=== PATIENT | female | born 1995 | race Caucasian/White ===

== ENCOUNTER → 2017-01-23 | Outpatient (CLI) | payer OTHER ==
[2017-01-23 14:34] LABS: URINE APPEARANCE CLEAR (CLEAR); URINE BILIRUBIN NEG (NEG); URINE COLOR YELLOW; URINE NITRITE NEG (NEG); URINE SPECIFIC GRAVITY 1.019 (1.000-1.030); UROBILINOGEN NEG (NEG)
[2017-01-23 14:35] LABS: MANUAL MICROSCOPIC REQUIRED? NO; REVIEW REQ? NO
== END | disposition home or self-care (01) ==
LOC: C.LABSPEC 13:38
PROVIDERS: ATTEND Obstetrics & Gynecology
DX: Z34.01 Encounter for supervision of normal first pregnancy, first trimester (principal)

== ENCOUNTER → 2017-01-30 | Outpatient (CLI) | payer OTHER | END | disposition home or self-care (01) | LOC: C.LABSPEC 13:34 | PROVIDERS: ATTEND Obstetrics & Gynecology | DX: Z34.02 Encounter for supervision of normal first pregnancy, second trimester (principal) ==

== ENCOUNTER → 2017-01-30 | Outpatient (CLI) | payer OTHER ==
[2017-01-30 14:43] LABS: GTGD 50 Grams
== END | disposition home or self-care (01) ==
LOC: C.LAB1850 12:08
PROVIDERS: ATTEND Obstetrics & Gynecology
DX: Z34.02 Encounter for supervision of normal first pregnancy, second trimester (principal)

== ENCOUNTER → 2017-02-27 | Outpatient (CLI) | payer OTHER | END | disposition home or self-care (01) | LOC: C.LAB1850 08:58 | PROVIDERS: ATTEND Obstetrics & Gynecology | DX: O28.1 Abnormal biochemical finding on antenatal screening of mother (principal); Z3A.00 Weeks of gestation of pregnancy not specified ==

== ENCOUNTER → 2017-03-27 | Outpatient (CLI) | payer OTHER ==
[~2017-03-27] MED LIST: PRENTAB26 PO
[2017-03-27 12:19] LABS: HEMATOCRIT 33.2 % (37-47); HEMOGLOBIN 11.7 g/dL (12.0-16.0)
== END | disposition home or self-care (01) ==
LOC: C.LAB1850 11:11
PROVIDERS: ATTEND Obstetrics & Gynecology
DX: Z34.03 Encounter for supervision of normal first pregnancy, third trimester (principal)

== ENCOUNTER → 2017-04-24 | Outpatient (CLI) | payer OTHER | END | disposition home or self-care (01) | LOC: C.LAB1850 14:54 | PROVIDERS: ATTEND Obstetrics & Gynecology | DX: Z34.03 Encounter for supervision of normal first pregnancy, third trimester (principal) ==

== ENCOUNTER → 2017-05-07 | Outpatient (CLI) | payer OTHER | END | disposition home or self-care (01) | LOC: C.PATH 08:24 | PROVIDERS: ATTEND Nurse Practitioner Family | DX: I88.9 Nonspecific lymphadenitis, unspecified (principal) ==

== ENCOUNTER → 2017-05-22 | Day surgery (SDC) | payer OTHER ==
[2017-05-20 15:37] VITALS: BMI 27.0
[~2017-05-22] VITALS: Ht 162.6 cm; Wt 72.7 kg
[~2017-05-22] MED LIST changes: +FENTANYL CITRATE INJ 50 MCG/1 ML 2 ML VIAL ONE; +LACTATED RINGER'S 1000ML 1,000 ML IV SCH; +LIDOCAINE HCL 2% 2 ML VIAL (20MG/ML) ONE; +PROPOFOL IV EMULSION 10 MG/ML 20 ML VIAL IV ONE
[2017-05-22 05:46] VITALS: BP 123/79; PULSE 87; TEMP 36.7; O2SAT 99; Ht 162.6 cm; Wt 72.7 kg
--- NOTE | 2017-05-22 06:33 | History & Physical Bridge Note ---
H&P Re-Evaluation Bridge Note: I have examined the patient, reviewed the History & Physical and in the interval since the performance of the History & Physical I have noted the following changes of clinical significance: No changes noted
--- NOTE | 2017-05-22 08:05 | Anesthesiology Progress Note ---
Anesthesia Progress Note Date of Service May 22, 2017. Progress Notes The patient is 8 months and scheduled for a neck cervical lymph node excision by Dr. Pisano. The patient has had cervical lymph node swelling for over one year. After extensive discussion with Dr. Pisano and Dr. Cole, a decision was made to delay the surgery until after the patient has delivered the baby. The concerns were that the tracing would be concerning during the procedure necessitating an emergency C section as well as the possibility of defects or loss of . Since the patient has had swollen lymph nodes for over a year, it would be prudent to wait until the baby is delivered and then shortly after do the cervical lymph node excision. The patient understands and is in agreement with this plan. Michelle Mehta is performing monitoring and reporting to Dr. Cole.
== END | disposition home or self-care (01) ==
LOC: C.ACU 05:17
PROVIDERS: ATTEND Dentist Oral and Maxillofacial Pathology
DX: I88.9 Nonspecific lymphadenitis, unspecified (principal); Z53.8 Procedure and treatment not carried out for other reasons; O24.419 Gestational diabetes mellitus in pregnancy, unspecified control; Z3A.35 35 weeks gestation of pregnancy; Z88.0 Allergy status to penicillin; Z87.891 Personal history of nicotine dependence

== ENCOUNTER → 2017-05-29 | Outpatient (CLI) | payer OTHER ==
[~2017-05-29] MED LIST changes: -FENTANYL CITRATE INJ 50 MCG/1 ML 2 ML VIAL ONE; -LACTATED RINGER'S 1000ML 1,000 ML IV SCH; -LIDOCAINE HCL 2% 2 ML VIAL (20MG/ML) ONE; -PROPOFOL IV EMULSION 10 MG/ML 20 ML VIAL IV ONE
== END | disposition home or self-care (01) ==
LOC: C.LABSPEC 13:35
PROVIDERS: ATTEND Obstetrics & Gynecology
DX: Z34.03 Encounter for supervision of normal first pregnancy, third trimester (principal)

== ENCOUNTER 2017-06-24 06:45 | Inpatient (IN) | payer OTHER ==
[~2017-06-24] VITALS: Ht 162.6 cm; Wt 74.5 kg
[2017-06-24] MEDS ORDERED: LACTATED RINGER'S 1000ML 1,000 ML IV PRN (08:09)
[2017-06-24] MEDS ORDERED: LACTATED RINGER'S 1000ML 500 ML IV PRN ×2 (08:09→15:07)
[2017-06-24] MEDS ORDERED: OXYTOCIN 30 UNITS/500ML NSS IV PRN ×2 (08:15→21:00)
[2017-06-24 08:41] LABS: HEMATOCRIT 34.2 % (37-47); HEMOGLOBIN 11.9 g/dL (12.0-16.0); MEAN CELL VOLUME 89.3 fL (80-100); MEAN CORPUSCULAR HEMOGLOBIN 31.1 pg (25-34); MEAN CORPUSCULAR HGB CONC 34.8 g/dl (32-36); MEAN PLATELET VOLUME 9.3 fL (7.4-10.4); PLATELET COUNT 161 K/uL (130-400); RED CELL DISTRIBUTION WIDTH CV 13.4 % (11.5-14.5); RED CELL DISTRIBUTION WIDTH SD 43.7 fL (36.4-46.3)
[2017-06-24] MEDS: LACTATED RINGER'S 1000ML 1,000 ML IV SCH ×2 (08:53→14:44)
[2017-06-24 09:09] VITALS: Ht 162.6 cm; Wt 74.5 kg
[2017-06-24] MEDS ORDERED: FENTANYL CITRATE INJ 50 MCG/1 ML 2 ML VIAL ONE (14:28)
[2017-06-24] MEDS ORDERED: BUPIVACAINE 0.25% 30 ML VIAL ONE (14:28)
[2017-06-24] MEDS ORDERED: EpHEDrine SULFATE INJ 50 MG/ML AMP ONE (14:28)
[2017-06-24] MEDS ORDERED: FENTANYL 2MCG/ML ROPIV 1.25MG/ML 100ML BAG ONE (14:29)
[2017-06-24] MEDS ORDERED: NALOXONE HCL INJ 1 MG in SODIUM CHLORIDE 0.9% 1000ML 1,000 ML IV PRN (15:07)
[2017-06-24] MEDS ORDERED: NALOXONE HCL INJ 0.4 MG/1 ML VIAL/CARP IV PRN (15:15)
[2017-06-24] MEDS ORDERED: DiphenhydrAMINE HCL 50 MG/ML VIAL IV PRN (15:15)
[2017-06-24] MEDS ORDERED: NALBUPHINE HCL INJ 10 MG/ML AMP IV PRN (15:15)
[2017-06-24] MEDS ORDERED: EpHEDrine SULFATE INJ 50 MG/ML AMP IV PRN (15:15)
[2017-06-24] MEDS: FENTANYL 2MCG/ML ROPIV 1.25MG/ML 100ML BAG EPI PRN ×2 (19:04→20:05)
[2017-06-24] MEDS ORDERED: SUPERCREAM 0.870 % 15GM JAR EXT PRN (21:00)
[2017-06-24] MEDS ORDERED: BENZOCAINE 20% AER SPR 82.5 GM CAN EXT PRN (21:00)
[2017-06-24] MEDS ORDERED: HYDROCORTISONE ACETATE 25 MG SUPP PR PRN (21:00)
[2017-06-24] MEDS ORDERED: LANOLIN OINT EXT PRN (21:00)
[2017-06-24] MEDS ORDERED: ACETAMINOPHEN/CODEINE 300/30MG TAB PO PRN ×2 (21:00)
[2017-06-24] MEDS ORDERED: ACETAMINOPHEN 325 MG TAB PO PRN (21:00)
[2017-06-24] MEDS ORDERED: DIPHTHERIA/TETANUS/PERTUSSIS 0.5 ML SYR/VIAL IM. ONE (21:00)
[2017-06-24] MEDS ORDERED: OXYCODONE/ACETAMINOPHEN 5-325 TAB PO PRN (21:00)
--- NOTE | 2017-06-24 22:04 | DELIVERY SUMMARY ---
DATE OF OPERATION: 06/24/2017 VAGINAL DELIVERY NOTE Lalita was induced for medical reasons as she needs a lymph node biopsy with Dr. Pisano. She was passed 39 weeks. She had a cervical Mark the night before and then Pitocin started. Patient progressed to 4 cm and ARM was performed for clear fluid. The IUPC was placed and she then progressed to 7, then 10 cm. She had some early decelerations but then pushed for only approximately 15 minutes, delivering a baby in occiput anterior position. Mouth and the nares suctioned. Clear fluid, no nuchal cord, gentle traction, no excessive force, live vigorous . Cord clamped and cut. Cord blood obtained. Cord blood collection obtained. Placenta removed with gentle traction. IV Pitocin given. Second degree tear repaired with 3-0 Vicryl and labial tears repaired with 3-0 Vicryl. gave some additional lidocaine for pain control as well. Sponge and instruments count correct. Estimated blood loss 250 mL. I attest to the content of the Intraoperative Record and any orders documented therein. Any exceptions are noted below. MTDD
[2017-06-24 23:10] VITALS: BP 117/80; PULSE 104; TEMP 37; O2SAT 97
[2017-06-25 03:40] VITALS: BP 113/69; PULSE 100; TEMP 36.9; O2SAT 97
[2017-06-25 06:23] LABS: HEMATOCRIT 32.6 % (37-47); HEMOGLOBIN 11.1 g/dL (12.0-16.0)
--- NOTE | 2017-06-25 06:36 | Progress Note ---
Subjective June 25, 2017. Subjective conversation w/ patient Ambulation: ambulating normally Voiding: no voiding problems Diet Tolerance: Regular Diet Lochia: Moderate Feeding Type: Breast Feeding Pain: Abdominal cramps reported Review of Systems Constitutional: No fever, No chills Respiratory: No shortness of breath Cardiac: No chest pain Abdomen: No nausea, No vomiting Objective Vital Signs Date Time Temp Pulse Resp B/P (MAP) Pulse Ox O2 Delivery O2 Flow Rate FiO2 06/25/17 03:40 36.9 100 16 113/69 (84) 97 Room Air 06/24/17 23:10 37.0 104 18 117/80 (92) 97 Room Air 06/24/17 23:10 97 Room Air Physical Exam General Appearance: WELL-APPEARING, WD/WN, NO APPARENT DISTRESS Respiratory/Chest: lungs clear, normal breath sounds Cardiovascular: regular rate, rhythm Abdomen: soft Fundus: Firm, Non-Tender, Relation to Umbilicus (at u) Extremities: no pedal edema, no calf tenderness Laboratory Results Last 24 Hours Test 06/24/17 08:26 06/24/17 09:36 06/24/17 15:28 06/24/17 17:29 White Blood Count 11.60 K/uL Red Blood Count 3.83 M/uL Hemoglobin 11.9 g/dL Hematocrit 34.2 % Mean Corpuscular Volume 89.3 fL Mean Corpuscular Hemoglobin 31.1 pg Mean Corpuscular Hemoglobin Concent 34.8 g/dl RDW Standard Deviation 43.7 fL RDW Coefficient of Variation 13.4 % Platelet Count 161 K/uL Mean Platelet Volume 9.3 fL Bedside Glucose 91 mg/dl 76 mg/dl 108 mg/dl Test 06/24/17 19:24 06/25/17 06:00 Bedside Glucose 73 mg/dl Hemoglobin 11.1 g/dL Hematocrit 32.6 % Assessment and Plan Post- Day#: 1 Continue Routine Care: 22F s/p NVD day 1 - A+, Rubella Immune, GBS -ve - pt doing well clinically - Vital signs reviewed - pt tachycardic at 100, will improve pain control and monitor to ensure downtrending - Hemoglobin reviewed. 11.9 -> 11.1 - Encourage ambulation, monitor and control pain with Motrin PRN - Encourage breast feeding - anticipate d/c tomorrow Resident Physician Supervision Note: I interviewed and examined the patient. Discussed with Dr. Villafuerte and agree with findings and plan as documented in the note. Any exceptions or clarifications are listed here: [None] Documented By: Jona Lakhani Resident Tracking Resident Involvement: Resident Care Provided Care Provided: OB Delivery
[2017-06-25] MEDS: IBUPROFEN 600 MG TAB PO PRN ×3 (06:48→22:54)
--- NOTE | 2017-06-25 06:49 | Discharge Instructions ---
Discharge Instructions Date of Service June 25, 2017. Admission Reason for Admission: IUP Discharge Discharge Diagnosis / Problem: Vaginal Delivery Discharge Goals Goal(s): Routine recovery after delivery Medications Continue Dispensed Medications: supercream, dermaplast, tucks, lansinoh Activity Recommendations Activity Limitations: per Instructions/Follow-up section . Instructions / Follow-Up Instructions / Follow-Up ACTIVITY RECOMMENDATIONS: * Gradual return to full activity over the next 2-3 weeks. * No lifting - nothing heavier than baby over the next 2-3 weeks. * Do not engage in vigorous exercise, sexual activity or sports until cleared by your physician. * Do not drive or operate any motorized equipment until cleared by your physician. * You may shower/bathe daily. MEDICATIONS: For discomfort or pain, you may use Acetaminophen (Tylenol), Ibuprofen (Advil), or Naproxen (Aleve) following the package directions. For constipation you may use Colace following the package directions. BREAST CARE: If you are not breast feeding: * Wear a supportive bra 24 hours a day for one to two weeks. * Avoid stimulating your breasts and nipples as much as possible during the first few weeks after delivery. * When taking a shower, have the warm water hit your back, not breasts. * When your breasts feel full, apply ice packs. Usually three to four times a day helps ease the discomfort. * Take a mild pain medication (Tylenol / Motrin) when you are uncomfortable. If breast feeding: * Use breast milk to lubricate nipples. Lansinoh cream may be used for sore nipples. You do not need to remove cream prior to breast feeding. If using a different brand of cream, check the label for directions regarding removal of cream prior to nursing. * Wear a supportive bra. * If having problems with breasts or breast feeding, call a automation consultant or your health care provider. EPISIOTOMY CARE: After delivery, if you have an episiotomy (stitches), the following steps will ease discomfort and aid healing. * For the first 24 hours after delivery, place ice packs next to your episiotomy to help reduce swelling. * After the first 24 hour-period, sitz baths, either portable or in the tub, are suggested. A shower with a shower arm sprayed over the episiotomy may be comforting. * Linda care should be done after each voiding and bowel movement. Squirt warm water from a plastic bottle over the perineum (region of the body between the anus and urinary opening) and pat dry. * Use Dermoplast to ease discomfort. Shake container. Ambler directly over the episiotomy. Place a Tucks on a clean sanitary pad next to your episiotomy. SPECIAL CARE INSTRUCTIONS: When you are discharged from the hospital, it is important for you to follow the instructions listed below: * During the first week at home, you should be able to care for yourself and your baby. In addition, the usual light household activities are encouraged. * Limit your activities to the way you feel. Do not try to clean the house or move furniture. Be sensible. * If you actively engage in sports and have done so up until the time of your delivery, you may resume these activities as soon as you feel able. This may take up to one month or even longer. Use good judgment. * Continue to take your vitamins for at least six weeks after the of your baby. * Your diet need not be limited unless you were on a special diet before your delivery. Breast-feeding mothers need around 2500 calories per day and at least 64-80 ounces of fluid per day (8 to 10 glasses). * You should eat foods from the four major food groups. Crash diets or fad diets are to be avoided. Eating lean meats, fresh fruits and vegetables, low-fat dairy products, high fiber foods and a regular exercise program, will help you get back to your pre- weight without putting your health at risk. * Constipation is sometimes a problem after delivery. Take a mild laxative as needed. If breast feeding, Milk of Magnesia is acceptable to use. You may use a suppository or Fleets enema if no episiotomy. * A daily shower or tub bath is suggested. Be sure to thoroughly and gently dry the perineum. * A bloody vaginal discharge will usually continue until around four weeks post . A small amount of bleeding may continue for as long as six weeks. Vaginal discharge changes from the bright red bleeding after delivery to pink then brownish and finally yellowish-pink before becoming white and disappearing. * Bleeding may increase with activity. Your first period may come in 4-8 weeks. If you are breast feeding, your period may be delayed even longer. * Sumter (sex) can begin whenever both you and your partner feel comfortable and do not have any form of genital infection. It is recommended that you wait at least six weeks for internal and external healing to occur. If you have questions, please talk to your health care practitioner. A condom should be used to prevent infection and . * Foreplay, gentle intercourse and lubrication is very important the first several times to prevent pain. A water-based lubricant such as K-Y jelly or Astroglide may be used. * If you have RH negative blood and your baby is RH positive, you will receive RHOGAM by injection prior to discharge. The nurse will give you a card to keep with you that has the date and place that you received RHOGAM after delivery. * During your care, you had a Rubella screen done to check for the presence of rubella antibodies in your blood. If your test was negative, you will receive a Rubella vaccine prior to discharge. This vaccine may cause a fever, soreness at the injection site and flu-like symptoms. If these symptoms persist, notify your health care practitioner. is not advised for one month after a Rubella vaccine. * Verbalizes understanding of car seat law as reviewed with patient nursing. * Car Seat hand-out given and reviewed with patient by nursing. * Shaken baby information reviewed with patient by nursing. Call you doctor if: * Heavy bleeding (saturating several pads an hour) or passing clots the size of your fist. * A fever >101 degrees F (38.3 degrees C) on two occasions four hours apart and /or chills. * Unusual pain in the pelvic or vaginal areas. * "Baby Blues" lasting longer than two weeks. If you have any questions or concerns, call your health care practitioner at . FOLLOW UP VISIT: * Please call the office at to schedule a 6 week examination. It is important you keep this appointment. It is important for you to make arrangements for either yearly or twice yearly check-ups thereafter. Current Hospital Diet Patient's current hospital diet: Regular OB Diet Discharge Diet Recommended Diet: Regular Diet Pending Studies Studies pending at discharge: no Medical Emergencies . Who to Call and When: Medical Emergencies: If at any time you feel your situation is an emergency, please call 911 immediately. . Non-Emergent Contact Non-Emergency issues call your: Primary Care Provider . . "Provider Documentation" section prepared by Christo Blackburn. .
--- NOTE | 2017-06-25 07:17 | Anesthesia Procedure Note ---
Anesthesia Epidural Removal Nt Date & Time June 25, 2017 at 07:17 Vital Signs Pain Intensity: 4.0 Vital Signs Past 12 Hours Date Time Temp Pulse Resp B/P (MAP) Pulse Ox O2 Delivery O2 Flow Rate FiO2 06/25/17 03:40 36.9 100 16 113/69 (84) 97 Room Air 06/24/17 23:10 37.0 104 18 117/80 (92) 97 Room Air 06/24/17 23:10 97 Room Air Notes Mental Status: alert / awake / arousable, participated in evaluation Nausea / Vomiting: adequately controlled Pain: adequately controlled Airway Patency, RR, SpO2: stable & adequate BP & HR: stable & adequate Hydration State: stable & adequate Neuraxial Anesthesia: was administered Anesthetic Complications: no major complications apparent, pt satisfied with anesthetic care Epidural: removed without complications, with tip intact
[2017-06-25 07:21] VITALS: BP 113/77; PULSE 80; TEMP 36.7
[2017-06-25] MEDS: PRENATAL VITAMIN TAB PO SCH (08:46)
[2017-06-25] MEDS: DOCUSATE SODIUM 100 MG CAP PO SCH ×2 (08:46→20:07)
[2017-06-25 11:20] VITALS: BP 102/68; PULSE 82; TEMP 36.7
[2017-06-25 17:50] VITALS: BP 121/81; PULSE 81; TEMP 36.6; O2SAT 98
[2017-06-25 19:30] VITALS: BP 116/76; PULSE 89; TEMP 36.8; O2SAT 98
[2017-06-25] MEDS ORDERED: BISACODYL 5 MG TABEC PO SCH (20:00)
[2017-06-25 23:00] VITALS: BP 112/73; PULSE 77; TEMP 36.4; O2SAT 96
--- NOTE | 2017-06-26 06:04 | Progress Note ---
Subjective June 26, 2017. Subjective conversation w/ patient Ambulation: ambulating normally Voiding: no voiding problems Diet Tolerance: Regular Diet Lochia: Small Feeding Type: Breast Feeding Pain: No pain reported at the current time Review of Systems Constitutional: No fever, No chills Respiratory: No shortness of breath Cardiac: No chest pain Abdomen: No nausea, No vomiting Objective Vital Signs Date Time Temp Pulse Resp B/P (MAP) Pulse Ox O2 Delivery O2 Flow Rate FiO2 06/25/17 23:00 96 Room Air 06/25/17 23:00 36.4 77 16 112/73 (86) 96 Room Air 06/25/17 19:30 36.8 89 16 116/76 (89) 98 Room Air 06/25/17 19:30 98 Room Air 06/25/17 17:50 36.6 81 20 121/81 (94) 98 Room Air 06/25/17 17:50 98 Room Air 06/25/17 11:20 36.7 82 20 102/68 (79) 06/25/17 08:20 Room Air 06/25/17 07:21 36.7 80 20 113/77 (89) Room Air Physical Exam General Appearance: WELL-APPEARING, WD/WN, NO APPARENT DISTRESS Respiratory/Chest: lungs clear, normal breath sounds Cardiovascular: regular rate, rhythm Abdomen: soft Fundus: Firm, Non-Tender, Relation to Umbilicus (2 below) Extremities: no pedal edema, no calf tenderness Laboratory Results Last 24 Hours Test 06/26/17 04:44 Assessment and Plan Post- Day#: 2 Continue Routine Care: 22F s/p NVD day 2 - A+, Rubella Immune, GBS -ve - pt doing well clinically - Vital signs reviewed and WNL - Encourage ambulation - Encourage breast feeding - pt ready for d/c today and will be counselled on d/c instructions Resident Physician Supervision Note: I interviewed and examined the patient. Discussed with Dr. Torres and agree with findings and plan as documented in the note. Any exceptions or clarifications are listed here: [None] Documented By: Jordyn Cole Resident Tracking Resident Involvement: Resident Care Provided Care Provided: OB Delivery
[2017-06-26 06:29] LABS: HEMATOCRIT 30.8 % (37-47); HEMOGLOBIN 10.5 g/dL (12.0-16.0); MEAN CELL VOLUME 90.9 fL (80-100); MEAN CORPUSCULAR HGB CONC 34.1 g/dl (32-36); MEAN PLATELET VOLUME 9.2 fL (7.4-10.4); PLATELET COUNT 153 K/uL (130-400); RED CELL DISTRIBUTION WIDTH CV 13.6 % (11.5-14.5); RED CELL DISTRIBUTION WIDTH SD 44.6 fL (36.4-46.3); WHITE BLOOD COUNT 9.28 K/uL (4.8-10.8)
[2017-06-26] MEDS ORDERED: BISACODYL 10 MG SUPP PR PRN (07:00)
[2017-06-26 07:03] VITALS: BP 100/63; PULSE 76; TEMP 36.8
[2017-06-26] MEDS: DOCUSATE SODIUM 100 MG CAP PO SCH (08:09)
[2017-06-26] MEDS: PRENATAL VITAMIN TAB PO SCH (08:09)
[2017-06-26 10:38] VITALS: BP_DIAS 63; PULSE 76; TEMP 36.8
== END 2017-06-26 11:40 | disposition home or self-care (01) | DRG 775 ==
LOC: C.LD 08:04 → C.OBG 23:35
PROVIDERS: ADMIT Obstetrics & Gynecology; ATTEND Obstetrics & Gynecology
PROC: 10E0XZZ Delivery of Products of Conception, External Approach (ICD-10-PCS; principal; 2017-06-24)
PROC: 10907ZC Drainage of Amniotic Fluid, Therapeutic from Products of Conception, Via Natural or Artificial Opening (ICD-10-PCS; principal; 2017-06-24)
PROC: 3E033VJ Introduction of Other Hormone into Peripheral Vein, Percutaneous Approach (ICD-10-PCS; principal; 2017-06-24)
PROC: 0KQM0ZZ Repair Perineum Muscle, Open Approach (ICD-10-PCS; principal; 2017-06-24)
DX: O99.89 Other specified diseases and conditions complicating pregnancy, childbirth and the puerperium (principal); O70.1 Second degree perineal laceration during delivery; O24.420 Gestational diabetes mellitus in childbirth, diet controlled; R59.0 Localized enlarged lymph nodes; Z3A.40 40 weeks gestation of pregnancy; Z37.0 Single live birth

== ENCOUNTER 2023-09-30 07:58 | Inpatient (IN) ==
--- OUTSIDE RECORDS SUMMARY | 2023-09-30 08:25 | External Medical Summary | Summary of Care ---
Author Name Unknown Organization [facility] Address [address] [facility] [place] [address] Phone [phone] Care Team Providers Care Lepidopterist Name Role Phone Nika Avery Cate ECHOLS Primary Care Provider Reason for Visit * Reason Comments Return Visit Encounter Details Date Type Department Care Team (Late st Contact Info) Description 09/27/2023 2:00 PM EDT Office Visit Gynecology/Obstetric s Gabriel'harmeet Chaud[address]ari [address] [place] [address] [facility]d [facility]-C [address] [facility] [address] Izabela Chaudhari Stress Tests Tanvir [address] [place] [address] Encounter for supervision of other normal in third trimester*; Diet controlled gestational diabetes mellitus (GDM) in third trimester; Anemia during in third trimester; Poor growth affecting management of mother in third trimester, single or unspecified fetus; Anxiety during ; Tobacco smoking affecting in third trimester Allergies Active Allergy Reactions Criticality Noted Date Comments Penicillins Hives 09/19/2021 documented as of this encounter (statuses as of 09/27/2023) Medications Medication Sig Dispensed Refills Start Date End Date Status 28-0.8 MG Oral Tablet Take by mouth. Active Breast Pump Use as directed 1 Each 07/29/2023 Active Nicotine 14 MG/24HR Transdermal Patch 24 Hour (Nicoderm CQ) Place 1 Patch over 24 hours topically on the skin daily. 28 Patch 07/29/2023 Active Docusate Sodium 50 MG Oral Capsule Take by mouth 2 times a day. Active [employer] Verio Flex System w/Device Kit Use to test blood sugars 4 times daily (fasting, 1 hour after breakfast, lunch, and dinner) 1 Kit 08/14/2023 Active OneTouch Verio In Vitro Strip (Glucose Blood) Use to test blood sugars 4 times daily (fasting, 1 hour after breakfast, lunch, and dinner) 125 Strip 6 08/14/2023 Active MeetCuteTouch Delica Lancets 30G Use to test blood sugars 4 times daily (fasting, 1 hour after breakfast, lunch, and dinner) 200 Each 6 08/14/2023 Active Iron-Vitamin C 65-125 MG Oral Tablet (Vitron C) Take 1 Tablet by mouth in the morning. 90 Tablet 1 08/15/2023 Active documented as of this encounter (statuses as of 09/27/2023) Active Problems Problem Noted Date Diagnosed Date Poor growth affecting management of mother in third trimester 09/20/2023 Last Assessment & Plan: EFW today at 2.6%ile consistent with severe FGR. All biometric parameters are small, including AC. Normal POLO and BPP 09/18 with normal UA Doppler. Lalita's first child was also small, weighing 6# at 40 weeks. CONSIDERATIONS: We discussed the diagnosis of growth restriction (FGR) based on the finding of an estimated weight and/or abdominal circumference less than 10th percentile. Based on timing of initial diagnosis, FGR can be classified as early (less than 32 weeks) or late (greater than or equal to 32 weeks); severe FGR indicates EFW 3rd percentile. We discussed possible etiologies of FGR, which may include the following: Constitutional, viral infections, placental insufficiency, maternal medical conditions, smoking, aneuploidy, other genetic syndromes and incorrect dating.Low risk NIPT appreciated. The increased risk of stillbirth was discussed, and the importance of daily kick counts was reinforced. RECOMMENDATIONS: Encouraged smoking cessation. Given the severe FGR (EFW less than 3rd percentile) and normal Umbilical Artery (UA) Doppler velocimetry noted today we recommend: surveillance 2x per week: This should occur in either a Saturday/ or Saturday/Saturday fashion. Due to proximity to delivery, recommend this take place with OB team at [facility] (MFM follow up not scheduled) Delivery at 37w0d. Anemia during in third trimester 08/14 Overview: Managed with PO Iron with Vitamin C Anemia Labs Lab Results Component Value Date/Time HGB 11.4 (L) 08/14/2023 09:57 AM HCT 34.0 (L) 08/14/2023 09:57 AM FERRITIN - [facility] 30 08/14/2023 09:57 AM VITAMIN B12 - [facility] 473 08/14/2023 09:57 AM FOLIC ACID - [facility] >20.0 08/14/2023 09:57 AM IRON BINDING CAPACITY - [facility] 437 (H) 08/14/2023 09:57 AM MCV 96.3 08/14/2023 09:57 AM Gestational diabetes mellitus (GDM) in third tri mester 08/14/2023 Overview: Diagnosed at 30 weeks Nutrition consult 09/11/23 OneTouch Verio meter ordered History of A1GDM 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 Enrolled in [facility] [employer]. Instructions provided to report blood sugars each week for MFM review; diet controlled. 08/27/[id number]-RLG-ipcmgu 09/03/20239027-JQF-jxkxgnj blood sugars stable. Some post prandial elevations along with multiple missed readings. Messaged to be consistent with testing four times daily and reporting. 09/04/2023-RPM message sent; having issues with the lindy and the team contacted to call her to troubleshoot. Numbers sent via message stable. 09/10/23: RPM reviewed; stable overall. Continue diet control. 09/17/[id number]-OOD-joabnac stable (< 50% elevated) 09/24/[id number]-BWX-ssbbkeycm through lindy and messaging. Elevated post prandial breakfast. Messaged to watch diet. If continues next week, will schedule for follow up ADAPT with maternal medicine nurse practitioners Last Assessment & Plan: 3'GTT reviewed. Working with ADAPT. Encounter for supervision of other normal , unspecified trimester 04/11/2023 Last Assessment & Plan: 07/29/2023 Tdap Vaccine administered per clinic protocol. Pt given VIS(vaccine information sheet) Rosemarie Womack LPN Anxiety during 04/11/2023 Overview: 04/11/23 Stopped lexapro just prior to +HPT. Not interested in restarting 08/23/23 Reports a stable mood in . Denies any suicidal or homicidal ideation. Reports she has a good support system at home. Last Assessment & Plan: CONSIDERATIONS: Untreated maternal anxiety and depression may be associated with an increased risk of multiple poor obstetrical outcomes including miscarriages, low weight, and delivery. Women with a history of anxiety or depression are at risk for recurrence both during and/or the period. Studies of first-trimester SSRI exposure do not demonstrate consistent data to support an increased risk for structural malformations. Anti-anxiety or depression medications have been associated with transient effects (withdrawal syndrome). RECOMMENDATIONS: Mental illness can and should be treated during when the benefits of treatment outweigh potential risks. Referral to behavioral health services as clinically indicated. Tobacco smoking complicating Overview: 08/23/23 Currently smoking 10 cigarettes/day which is a decrease from 1 pack per day prior to the . Prescribed a nicotine patch but currently not using it Last Assessment & Plan: Strongly advised patient to stop using tobacco. Discussed that tobacco use is associated with increased risks of spontaneous miscarriage, labor and delivery, premature rupture of membranes, growth restriction, stillbirth, SIDS postnatally, and placental abnormalities such as previa or abruption. Smoking cessation aids such as the nicotine patch or Zyban are considered safer alternatives to tobacco use during . Encouraged patient to discuss with her primary provider for prescribing. Advised patient that the most successful method to quit smoking is if those around you do not smoke as well. Dysplasia of cervix, low grade (CHANELLE 1) Overview: Repeat pap 2023 Depressive disorder 02/01/2022 PTSD (post-traumatic stress disorder) 01/11/2022 PAN (generalized anxiety disorder) 11/15/2021 Moderate episode of recurrent major depressive d isorder 11/15/2021 Grief reaction 09/19/2021 Well adult exam 09/19/2021 Estimated Date of Delivery Comme nts Yes 10/20/2023 Based on last me nstrual period of 01/13/2023 (Exact Date) documented as of this encounter (statuses as of 09/27/2023) Resolved Problems Problem Noted Date Diagnosed Date Resolved Date History of gestational diabetes 04/11/2023 08/30/2023 documented as of this encounter (statuses as of 09/27/2023) Immunizations Name Administration Dates Next Due COVID-19 mRNA, LNP-s, No Pre serve, 2-Dose Series ([employer]) 09/07/2021,08/17/2021 Hepatitis B Vaccine, Recombi nant, Adjuvanted, 20 mcg/mL (Heplisav-B) 09/17/2022,08/15/2022 Hepatitis B, 0-19 yrs 02/20/1995,1994,04/12 MMR - Measles/Mumps/Rubella Vaccine 06/08/1998,0 08/14/1995 Seasonal Influenza Virus Vac cine, Unspecified Formulation 11/15/2021 Seasonal Influenza, PF, 6 M & above, IM , (FluLaval or Fluzone) 11/15/2021 TDAP (age 10 and older)(Boostrix) 07/29/2023, Varicella Vaccine (Chicken Pox) 09/25/2007,11/25 documented as of this encounter Social History Tobacco Use Types Packs/Day Years Used Date Smoking Tobacco: Former Cigarettes 1 10 2021 Smokeless Tobacco: Never Alcohol Use Standard Drinks/Week Comments Not Currently 0 (1 standard drink = 0.6 oz pur e alcohol) Hunger Vital Sign Answer Date Recorded Within the past 12 months, y ou worried that your food would run out before you got the money to buy more. Never true 04/11/19 24 Within the past 12 months, t he food you bought just didn't last and you didn't have money to get more. Never true 04/11/2023 [place] Depression Scale Answer Date Recorded [place] Depression Scale Total 10 04/11/2023 The thought of harming myself has occurred to me . Never 04/11/2023 Childcare Answer Date Recorded Do you feel overwhelmed with taking care of a child, family member or friend? No 04/11/2023 Does your family need help f inding childcare? (Household - for ages 0-17 years) Not on file 04/11/2023 Clothing Answer Date Recorded Have you been unable to get clothing when it was really needed? No 04/11/2023 Is your family able to get c lothes or diapers when needed? (Household - for ages 0-17 years) Not on file 04/11/2023 Personal Safety Answer Date Recorded Do you feel unsafe or have concerns for your saf ety? No 04/11/2023 Do you have concerns for you r family's safety? (Household - for ages 0-17 years) Not on file 04/11/2023 Utilities Answer Date Recorded Do you have trouble paying y our heating, water, or electric bill? No 04/11/2023 Is your family able to pay t he heat, water, or electric bill? (Household - for ages 0-17 years) Not on file 04/11/2023 Does your family have access to good internet? (Household - for ages 0-17 years) Not on file 04/11/2023 Employment Status Answer Date Recorded Are you unemployed or without regular income? Ye s 04/11/2023 Does the household have a re gular source of income? (Household - for ages 0-17 years) Not on file 04/11/2023 Social Connections Answer Date Recorded How often do you feel lonely or isolated from th ose around you? Never 04/11/2023 Financial Resource Strain Answer Date R ecorded Do you have any trouble payi ng for your medications, or do you think you might in the future? No 04/11/2023 Does your family have troubl e paying for medicine? (Household - for ages 0-17 years) Not on file 04/11/2023 Transportation Needs Answer Date Record ed READ ONLY Do you have troubl e getting a ride to medical visits or work? Never True 04/11/2023 Does your family have a hard time getting a ride to doctors visits? (Household - for ages 0-17 years) Not on file 04/11/2023 Has lack of transportation k ept you from medical appointments, meetings, work, or from getting things needed for daily living? Check all that apply. (Adult - for ages 18 years and over) Not on file 04/11/2023 Do you (or your family) have trouble finding or paying for a ride (transportation)? (Household - for ages 0-17 years) Not on file 04/11/2023 Housing Stability Answer Date Recorded Do you currently live in a s helter or have no steady place to sleep at night? No 04/11/2023 READ ONLY Do you think you a re at risk of becoming homeless? No 04/11/2023 Does your family worry about paying for your home or becoming homeless? (Household - for ages 0-17 years) Not on file 0 04/11/2023 Are you homeless or worried that you might be in the future? (Adult - for ages 18 years and over) Not on file Are you (or your family) katey eless or worried that you might be in the future? (Household - for ages 0-17 years) Not on file Food Insecurity Answer Date Recorded Do you need food for this week? No 04/11/2023 Are you able to get enough f ood for your family? (Household - for ages 0-17 years) Not on file 04/11/2023 Does your family need food t his week? (Household - for ages 0-17 years) Not on file 04/11/2023 Do you always have enough fo od for your family? (Household - for ages 0-17 years) Not on file 04/11/2023 Estimated Date of Delivery Comme nts Yes 10/20/2023 Based on last me nstrual period of 01/13/2023 (Exact Date) Sex and Gender Information Value Date Recorded Sex Assigned at Female 04/11/2023 2:33 PM EST Gender Identity Female 04/11/2023 2:33 PM EST Sexual Orientation Straight 04/11/2023 2: 33 PM EST Job Start Date Occupation Industry Not on file Not on file Not on file documented as of this encounter Last Filed Vital Signs Vital Sign Reading Time Taken Comments Blood Pressure 100/64 09/27/2023 2:30 PM EDT Pulse - - Temperature - - Respiratory Rate - - Oxygen Saturation - - Inhaled Oxygen Concentration - - Weight 78.9 kg (174 lb) 09/27/2023 2:30 PM EDT Height 163.8 cm (5' 4.5") 09/27/2023 2:30 PM EDT Body Mass Index 29.41 09/27/2023 2:30 PM EDT documented in this encounter Progress Notes * Aida Redd PA-C - 09/27/2023 2:36 PM EDT Lalita Pritchard is a 28 year old female here for NST and GBS swab at 36w5d Her Estimated Date of Delivery: 10/20/23 She is scheduled for IOL 09/29 for FGR. REVIEW OF SYSTEMS She affirms movement. Denies vaginal bleeding, LOF, contractions. PHYSICAL EXAM Filed Vitals: 09/27/23 1430 Weight: 78.9 kg (174 lb) Height: 1.638 m (5' 4.5") +FHT see NST result note GBS swab collected. Stockroom Clerk Documentation Patient offered hiv prevention specialist and accepted. Name of hiv prevention specialist: Lizz Pope LPN. ASSESSMENT assessment with Non-stress Test completed on 09/27/2023 at 36w5d weeks gestation for indication of growth restriction. heart baseline: 140 bpm Variability: Moderate Decelerations: absent Accelerations: present Contractions: None NST start time: 1433 NST stop time: 1500 NST strip reviewed, interpreted, and approved by OB provider, Aida Redd PA-C. NST strip stored in clinic storage file ASSESSMENT/PLAN Encounter for supervision of other normal in third trimester (Primary) - GROUP B STREP CULTURE/PCR; Future; Expected date: 09/27/2023 Diet controlled gestational diabetes mellitus (GDM) in third trimester Anemia during in third trimester Poor growth affecting management of mother in third trimester, single or unspecified fetus Anxiety during Tobacco smoking affecting in third trimester Supervision of - GBS swab collected today - labor precautions and kick counts reviewed RTO PRN and to [facility] 09/29 for IOL as scheduled. Aida Redd PA-C 09/27/2023 documented in this encounter Plan of Treatment Pending Results Name Type Priority Associated Diagnoses Date /Time GROUP B STREP CULTURE/PCR Lab Routine Encounter for supervision of other normal in third trimester 09/27/2023 3:48 PM EDT Scheduled Orders Name Type Priority Associated Diagnoses Orde r Schedule GROUP B STREP CULTURE/PCR Lab Routine Encounter for supervision of other normal in third trimester Expected: 09/27/2023, Expires: 09/26/2024 Health Maintenance Due Date Last Done Comments Depression Monitoring 2006 COVID-19 Vaccine ( season) 2022 09/07/2021, 08/17/2021 Influenza Vaccine (FLU shot) (#1) 2023 11/26/2022, 11/15/2021, 11/15/2021 Pap Smear 12/03/2025 12/03/2022 DTaP,Tdap,and Td Vaccines (3 - Td or Tdap) 07/28/2033 07/29/2023, 03/27/2017 Hepatitis B Vaccine Completed 09/17/2022, 08/15/2022, 02/20/1995, Additional history exists HPV (Gardasil) Vaccine Aged Out No lo nger eligible based on patient's age to complete this topic MENINGOCOCCAL (MENACTRA/MENVEO) Aged Out No longer eligible based on patient's age to complete this topic Pneumococcal Vaccine: Pediatrics (0 to 5 Years) and At-Risk Patients (6 to 64 Years) Aged Out No longer eligible based on patient's age to complete this topic documented as of this encounter Medical Devices Not on filedocumented as of this encounter Visit Diagnoses Diagnosis Encounter for supervision of other normal in third trimester- Primary Diet controlled gestational diabetes mellitus (GDM) in third trimester Anemia during in third trimester Poor growth affecting management of mother in third trimester, single or unspecified fetus Anxiety during Tobacco smoking affecting in third trimester documented in this encounter Care Teams Lepidopterist Relationship Specialty Start Date End Date Nika Avery CRNP [address] [phone] PCP - General Nurse Practitioner 09/19/21 documented as of this encounter
--- OUTSIDE RECORDS SUMMARY | 2023-09-30 08:25 | External Medical Summary ---
Author Name Unknown Address Unknown Organization [id number][place] [place] [facility] [address] [place] [address] Laboratory Report Ordering Provider Test Date Status RYAN QUIGLEY 09/27/2023 15:48:37 Final Observation Date Value Abnormality Reference (Units ) Status Streptococcus agalactiae DNA [Presence] in Specimen by ISHA with probe detection 09/27/2023 15:48:37 Negative Negative Final No Group B Streptococcus det ected by culture-enhanced PCR (amplified probe). GBS GBSCT - [facility] 09/27/2023 15:48:37 0.0 Final GBS SPCCT - [facility] 09/27/2023 15:48:37 31.6 Final Performing Location [facility] [place] [address] [place] [address]
--- OUTSIDE RECORDS SUMMARY | 2023-09-30 08:25 | External Medical Summary | Summary of Care ---
Author Name Unknown Organization [facility] Address [address] [place] [address] Phone [phone] Care Team Providers Care Composing Machine Operator/Tender Name Role Phone Nika Avery Cate ECHOLS Primary Care Provider Reason for Visit * Reason Comments Return Visit Encounter Details Date Type Department Care Team (Late st Contact Info) Description 09/27/2023 2:00 PM EDT Office Visit Gynecology/Obstetric s Gabriel'harmeet Chaudhari [address] [phone] Aida Redd PA-C [address] [facility] [address] [address] Izabela Chaudhari Stress Tests Tanvir [address] [place] [address] Encounter for supervision of other normal in [...] by mouth 2 times a day. Active [employer] Verio Flex System w/Device Kit Use to test blood sugars 4 times daily (fasting, 1 hour after breakfast, lunch, and dinner) 1 Kit 08/14/2023 Active OneTouch Verio In Vitro Strip (Glucose Blood) Use to test blood sugars 4 times daily (fasting, 1 hour after breakfast, lunch, and dinner) 125 Strip 6 08/14/2023 Active FollicumTouch Delica Lancets 30G Use to test blood [...] this take place with OB team at 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 08/27/[id number]-QOK-zczvtt 09/03/20231770-RYW-mlxqqct blood sugars stable. Some post prandial elevations along with multiple missed readings. Messaged to be consistent with testing four times daily and reporting. 09/04/2023-RPM message sent; having issues with the lindy and the team contacted to call her to troubleshoot. Numbers sent via message stable. 09/10/23: RPM reviewed; stable overall. Continue diet control. 09/17/[id number]-STU-qyclttr stable (< 50% elevated) 09/24/[id number]-hjasuslpz through lindy and messaging. Elevated post prandial [...] mRNA, LNP-s, No Pre serve, 2-Dose Series ([employer]) 09/07/2021,08/17/2021 Hepatitis B Vaccine, Recombi nant, Adjuvanted, [...] money to get more. Never true 04/11/2023 [place] Depression Scale Answer Date Recorded [place] Depression Scale Total 10 04/11/2023 The thought [...] see NST result note GBS swab collected. Cart Pusher Documentation Patient offered bean roaster and accepted. Name of bean roaster: Lizz Pope LPN. ASSESSMENT assessment with Non-stress [...] counts reviewed RTO PRN and to [facility] 09/29 for IOL as scheduled. Aida Redd PA-C 09/27/2023 documented in this encounter Plan of Treatment Scheduled Orders Name Type Priority Associated Diagnoses Orde r Schedule GROUP B STREP CULTURE/PCR Lab Routine Encounter for supervision of other normal in third trimester Expected: 09/27/2023, Expires: 09/26/2024 Health Maintenance Due Date Last Done Comments Depression Monitoring 2006 COVID-19 Vaccine (3 - season) 2022 09/07/2021, 08/17/2021 Influenza Vaccine (FLU [...] trimester documented in this encounter Care Teams Composing Machine Operator/Tender Relationship Specialty Start Date End Date Nika Avery CRNP [address] [phone] PCP - General Nurse Practitioner 09/19/21 documented as of this encounter
--- OUTSIDE RECORDS SUMMARY | 2023-09-30 08:26 | External Medical Summary | Summary of Care ---
Author Name Unknown Organization [facility] Address [address] [place] [address] Phone [phone] Care Team Providers Care Marine Engineering Teacher Name Role Phone IvyitaliaNika Cate ECHOLS Primary Care Provider Encounter Details Date Type Department Care Team (Late st Contact Info) Description 09/17/2023 Telephone Residential Subcontractor Obstetrics Maternal Medicine, [place] [address] [place] [address] [place], Nurse Residential Subcontractor [facility] [address] [place] [address] Allergies Active Allergy Reactions Criticality Noted Date Comments Penicillins Hives 09/19/2021 documented as of this encounter (statuses as of 09/17/2023) Medications Medication Sig Dispensed Refills Start Date [...] by mouth 2 times a day. Active [employer] Verio Flex System w/Device Kit Use to test blood sugars 4 times daily (fasting, 1 hour after breakfast, lunch, and dinner) 1 Kit 08/14/2023 Active DodreamsTouch Verio In Vitro Strip (Glucose Blood) Use to test blood sugars 4 times daily (fasting, 1 hour after breakfast, lunch, and dinner) 125 Strip 6 08/14/2023 Active DodreamsTouch Delica Lancets 30G Use to test blood sugars 4 times daily (fasting, 1 hour after breakfast, lunch, and dinner) 200 Each 6 08/14/2023 Active Iron-Vitamin C 65-125 MG Oral Tablet (Vitron C) Take 1 Tablet by mouth in the morning. 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 08/27/20238578-FPO-aizobg 09/03/20239535-VXH-iptarek blood sugars stable. Some post prandial elevations along with multiple missed readings. Messaged to be consistent with testing four times daily and reporting. 09/04/2023-RPM message sent; having issues with the lindy and the team contacted to call her to troubleshoot. Numbers sent via message stable. 09/10/23: RPM reviewed; stable overall. Continue diet control. 09/17/20233317-OBD-bjcvinr stable (< 50% elevated) Last Assessment & Plan: CONSIDERATIONS: Reviewed etiology and risks associated with gestational diabetes mellitus (GDM), including risks to , fetus, and maternal progression to Type 2 DM. Instructed on proper use of glucometer; supplies ordered, if indicated. Advised that life-long screening for diabetes is recommended every 1-3 years. RECOMMENDATIONS: Recommend monitoring blood sugars with daily fasting blood sugar (maintained at less than or equal to 95) and 1 hour postprandial measurements (maintained at less than or equal to 140). Medications should be adjusted to maintain these target values. Report levels to MFM (Maternal- Medicine) weekly. Recommend nutrition consult with RDN (Registered Dietitian Compass Operator). Lifestyle changes are also indicated including optimizing gestational weight gain and physical activity of 30 minutes per day, if not otherwise contraindicated in . Insulin is preferred if medications are indicated to optimize euglycemia. Metformin (preferred over glyburide) may also be used in some circumstances. Reviewed the risks and benefits of each. Recommend ultrasound, surveillance and delivery as follows: A1GDM, delivery should be accomplished by 41w0d. A2GDM, recommend growth assessment with MFM every 4 weeks, initiate surveillance at 32 weeks and continue until delivery at 39 weeks. Recommend intrapartum monitoring every 1-2 hours (A2GDM) or every 4 hours (A1GDM) and treat with insulin if indicated. Recommend 2-hour glucose tolerance testing with 75-gram glucose load 6-8 weeks . Encounter for supervision of other normal , [...] services as clinically indicated. Tobacco smoking complicating 4 Overview: 08/23/23 Currently smoking 10 cigarettes/day which [...] Dysplasia of cervix, low grade (CHANELLE 1) 3 Overview: Repeat pap 2023 Depressive disorder 02/01/2022 PTSD (post-traumatic stress disorder) 01/11/2022 PAN (generalized anxiety disorder) 11/15/2021 Moderate episode of recurrent major depressive d isorder 11/15/2021 Grief reaction 09/19/2021 Well adult exam 09/19/2021 Estimated Date of Delivery Comme nts Yes 10/20/2023 Based on last me nstrual period of 01/13/2023 (Exact Date) documented as of this encounter (statuses as of 09/17/2023) Resolved Problems Problem Noted Date Diagnosed Date Resolved Date History of gestational diabetes 04/11/2023 08/30/2023 documented as of this encounter (statuses as of 09/17/2023) Immunizations Name Administration Dates Next Due COVID-19 mRNA, LNP-s, No Pre serve, 2-Dose Series ([employer]) 09/07/2021,08/17/2021 Hepatitis B Vaccine, Recombi nant, Adjuvanted, [...] Date Smoking Tobacco: Former Cigarettes 1 10 2 012 - 2021 Smokeless Tobacco: Never Alcohol Use Standard [...] money to get more. Never true 04/11/2023 [place] Depression Scale Answer Date Recorded [place] Depression Scale Total 10 04/11/2023 The thought [...] on file documented as of this encounter Miscellaneous Notes * Telephone Encounter - Roxi Cardenas OSA - 09/17/2023 1:13 PM EDT Called Lalita back and got her rescheduled for a sooner appt. documented in this encounter Plan of Treatment Upcoming Encounters Date Type Department Care Team (Late st Contact Info) Description 09/20/2023 12:30 PM EDT Office Visit Residential Subcontractor OB Maternal Medicine [facility] [address] [place] [address] Dr [address] [place] [address] Johnny Annajohnny Stiles, DO [address] [place] [address] 09/20/2023 12:30 PM EDT Imaging Maternal [facility] [address] [place] [address] Dr [address] [place] [address] Health Maintenance Due Date Last Done Comments Depression Monitoring 2006 COVID-19 Vaccine ( - 2022- season) 2022 09/07/2021, 08/17/2021 Influenza Vaccine (FLU [...] Not on filedocumented as of this encounter Care Teams Marine Engineering Teacher Relationship Specialty Start Date End Date Nika Avery CRNP [address] [place] [address] PCP - General Nurse Practitioner 09/19/21 documented as of this encounter
--- OUTSIDE RECORDS SUMMARY | 2023-09-30 08:26 | External Medical Summary | Summary of Care ---
Author Name Unknown Organization [facility] Address [address] [facility] [place] [address] Phone [phone] Care Team Providers Care Mold Mover Name Role Phone Nika Avery Primary Care Provider Reason for Visit * Reason Onset Date Comments 09/24/2023 Encounter Details Date Type Department Care Team (Late st Contact Info) Description 09/24/2023 Telephone Gynecology/Obstetrics Anast[facility] Chaudhari [address] [place] [address] Felicia Magaña CRNP [address] [place] [address] Allergies Active Allergy Reactions Criticality Noted Date Comments Penicillins Hives 09/19/2021 documented as of this encounter (statuses as of 09/25/2023) Medications Medication Sig Dispensed Refills Start Date [...] by mouth 2 times a day. Active [employer] Verio Flex System w/Device Kit Use to test blood sugars 4 times daily (fasting, 1 hour after breakfast, lunch, and dinner) 1 Kit 08/14/2023 Active TelekenexTouch Verio In Vitro Strip (Glucose Blood) Use to test blood sugars 4 times daily (fasting, 1 hour after breakfast, lunch, and dinner) 125 Strip 6 08/14/2023 Active OneTouch Delica Lancets 30G Use to test blood sugars 4 times daily (fasting, 1 hour after breakfast, lunch, and dinner) 200 Each 08/14/2023 Active Iron-Vitamin C 65-125 MG Oral Tablet (Vitron C) Take 1 Tablet by mouth in the morning. 90 Tablet 1 08/15/2023 Active documented as of this encounter (statuses as of 09/25/2023) Active Problems Problem Noted Date Diagnosed Date [...] this take place with OB team at [facility] ([facility] follow up not scheduled) Delivery at 37w0d. 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 08/27/20235002-WIX-qxssdg 09/03/20236762-HTA-fzjhddp blood sugars stable. Some post prandial elevations along with multiple missed readings. Messaged to be consistent with testing four times daily and reporting. 09/04/2023-RPM message sent; having issues with the lindy and the team contacted to call her to troubleshoot. Numbers sent via message stable. 09/10/23: RPM reviewed; stable overall. Continue diet control. 09/17/20235383-RQF-dvqhdzz stable (< 50% elevated) 09/24/20234333-GQH-belpmxcpf through lindy and messaging. Elevated post prandial [...] Dysplasia of cervix, low grade (CHANELLE 1) 12/13/202 3 Overview: Repeat pap 2023 Depressive disorder 02/01/2022 PTSD (post-traumatic stress disorder) 01/11/2022 PAN (generalized anxiety disorder) 11/15/2021 Moderate episode of recurrent major depressive d isorder 11/15/2021 Grief reaction 09/19/2021 Well adult exam 09/19/2021 Estimated Date of Delivery Comme nts Yes 10/20/2023 Based on last me nstrual period of 01/13/2023 (Exact Date) documented as of this encounter (statuses as of 09/25/2023) Resolved Problems Problem Noted Date Diagnosed Date Resolved Date History of gestational diabetes 04/11/2023 08/30/2023 documented as of this encounter (statuses as of 09/25/2023) Immunizations Name Administration Dates Next Due COVID-19 mRNA, LNP-s, No Pre serve, 2-Dose Series ([employer]) 09/07/2021,08/17/2021 Hepatitis B Vaccine, Recombi nant, Adjuvanted, [...] money to get more. Never true 04/11/2023 [place] Depression Scale Answer Date Recorded [place] Depression Scale Total 10 04/11/2023 The thought [...] on file documented as of this encounter Plan of Treatment Upcoming Encounters Date Type Department Care Team (Late st Contact Info) Description 09/27/2023 2:00 PM EDT Office Visit Gynecology/Obstetrics Anastacio hCaudhari [address] [place] [address] Aida Redd [facility]C [address] [facility] [place] [address] [place], Non Stress Tests Tanvir [address] [place] [address] Health Maintenance Due Date Last Done Comments Depression Monitoring 2006 COVID-19 Vaccine (3 - 2022- season) 2022 09/07/2021, 08/17/2021 Influenza [...] filedocumented as of this encounter Care Teams Mold Mover Relationship Specialty Start Date End Date Nika Avery CRNP [address] [place] [address] PCP - General Nurse Practitioner 09/19/21 documented as of this encounter
--- OUTSIDE RECORDS SUMMARY | 2023-09-30 08:26 | External Medical Summary | Summary of Care ---
Author Name Unknown Organization [facility] Address [address] [facility] [place] [address] Phone [phone] Care Team Providers Care Order Puller Name Role Phone Nika Avery Primary Care Provider Reason for Visit * Reason Comments Non Stress Test Encounter Details Date Type Department Care Team (Late st Contact Info) Description 09/24/2023 8:45 AM EDT Office Visit Gynecology/Obstetric s [facility] [place] [address] [place] [address] Felicia Magaña CRNP [address] [place] [address] [place] Non Stress Tests [place] [address] [place] [address] Poor growth affecting management of mother in third trimester, single or unspecified fetus*; Encounter for supervision of other normal , unspecified trimester; Anxiety during ; Diet controlled gestational diabetes mellitus (GDM) in third trimester; Anemia during in third trimester Allergies Active Allergy Reactions Criticality Noted Date Comments Penicillins Hives 09/19/2021 documented as of this encounter (statuses as of 09/24/2023) Medications Medication Sig Dispensed Refills Start Date [...] by mouth 2 times a day. Active [employer] Verio Flex System w/Device Kit Use to test blood sugars 4 times daily (fasting, 1 hour after breakfast, lunch, and dinner) 1 Kit 08/14/2023 Active OneTouch Verio In Vitro Strip (Glucose Blood) Use to test blood sugars 4 times daily (fasting, 1 hour after breakfast, lunch, and dinner) 125 Strip 6 08/14/2023 Active KoutTouch Delica Lancets 30G Use to test blood sugars 4 times daily (fasting, 1 hour after breakfast, lunch, and dinner) 200 Each 6 08/14/2023 Active Iron-Vitamin C 65-125 MG Oral Tablet (Vitron C) Take 1 Tablet by mouth in the morning. 90 Tablet 1 08/15/2023 Active documented as of this encounter (statuses as of 09/24/2023) Active Problems Problem Noted Date Diagnosed Date Poor growth affecting management of mother in third trimester 09/20/2023 Last Assessment & Plan: EFW today at 2.6%ile consistent with severe FGR. All biometric parameters are small, including AC. Normal POLO and BPP 8/8 with normal UA Doppler. Lalita's first child [...] should occur in either a Saturday/ or Saturday/Lemuel fashion. 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 08/27/20237081-MCN-qqjubc 09/03/20231776-HLQ-llkxcna blood sugars stable. Some post prandial elevations along with multiple missed readings. Messaged to be consistent with testing four times daily and reporting. 09/04/2023-RPM message sent; having issues with the lindy and the team contacted to call her to troubleshoot. Numbers sent via message stable. 09/10/23: RPM reviewed; stable overall. Continue diet control. 09/17/20236478-QGM-vxfgdfi stable (< 50% elevated) Last Assessment & Plan: 3'GTT reviewed. Working [...] as of this encounter (statuses as of 09/24/2023) Resolved Problems Problem Noted Date Diagnosed Date Resolved Date History of gestational diabetes 04/11/2023 08/30/2023 documented as of this encounter (statuses as of 09/24/2023) Immunizations Name Administration Dates Next Due COVID-19 mRNA, LNP-s, No Pre serve, 2-Dose Series ([employer]) 09/07/2021,08/17/2021 Hepatitis B Vaccine, Recombi nant, Adjuvanted, [...] money to get more. Never true 04/11/2023 [place] Depression Scale Answer Date Recorded [place] Depression Scale Total 10 04/11/2023 The thought [...] Sign Reading Time Taken Comments Blood Pressure 118/66 09/24/2023 8:22 AM EDT Pulse - - Temperature - - Respiratory Rate - - Oxygen Saturation - - Inhaled Oxygen Concentration - - Weight 81.2 kg (179 lb) 09/24/2023 8:22 AM EDT Height - - Body Mass Index 30.25 09/12/2023 11:37 AM EDT documented in this encounter Progress Notes * Felicia Magaña CRNP - 09/24/2023 9:36 AM EDT ASSESSMENT assessment with Non-stress Test completed on 09/24/2023 at 36.2weeks gestation for indication of intrauterine growth restriction heart baseline: 135 bpm Variability: Moderate Decelerations: absent Accelerations: present Contractions: None NST start time: 1104 NST stop time: 1135 NST strip reviewed, interpreted, and approved by OB provider, KINZA Macedo . NST strip stored in clinic storage file * Jess Ji MED ASSIST - 09/24/2023 8:22 AM EDT Per MFM patient present today for NST. Recommended x2 NST before delivery Friday 09/29. IOL instructions given. Denies any concerns today. documented in this encounter Plan of Treatment Upcoming Encounters Date Type Department Care Team (Late st Contact Info) Description 09/27/2023 2:00 PM EDT Office Visit Gynecology/Obstetrics [facility] [address] [facility] [place] [address] Aida Redd PA-C [address] [place] [address] [place] [phone] [place]aud[place], Non Stress Tests Tanvir [address] [place] [address] Health Maintenance Due Date Last Done Comments [...] as of this encounter Visit Diagnoses Diagnosis Poor growth affecting management of mother in third trimester, single or unspecified fetus- Primary Encounter for supervision of other normal , unspecified trimester Anxiety during Diet controlled gestational diabetes mellitus (GDM) in third trimester Anemia during in third trimester documented in this encounter Care Teams Order Puller Relationship Specialty Start Date End Date Nika Avery CRNP [address] [place] [address] PCP - General Nurse Practitioner 09/19/21 documented as of this encounter
--- OUTSIDE RECORDS SUMMARY | 2023-09-30 08:26 | External Medical Summary | Summary of Care ---
Author Name Unknown Organization [facility] Address [address] [place] [address] Phone [phone] Care Team Providers Care Mold Maker Plastic Molds Name Role Phone Nika Avery Cate ECHOLS Primary Care Provider Reason for Visit * Reason Onset Date Comments Referral 09/16/2023 Encounter Details Date Type Department Care Team (Late st Contact Info) Description 09/16/2023 Telephone Studio Designer Obstetrics Maternal Medicine, [place] [address], [place] [phone] [place], Nurse Studio Designer [facility] [address] [place], [place] [id number] Referral Allergies Active Allergy Reactions Criticality Noted Date [...] by mouth 2 times a day. 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 08/27/20238143-BPH-dntzzv 09/03/20239347-DBO-yayzrer blood sugars stable. Some post prandial elevations along with multiple missed readings. Messaged to be consistent with testing four times daily and reporting. 09/04/2023-RPM message sent; having issues with the lindy and the team contacted to call her to troubleshoot. Numbers sent via message stable. 09/10/23: RPM reviewed; stable overall. Continue diet control. 09/17/20231618-EPT-foonzze stable (< 50% elevated) Last Assessment & [...] Recommend nutrition consult with RDN (Registered Dietitian Edge Glue Machine Tender). Lifestyle changes are also indicated including optimizing [...] mRNA, LNP-s, No Pre serve, 2-Dose Series ([employer]) 09/07/2021,08/17/2021 Hepatitis B Vaccine, Recombi nant, Adjuvanted, [...] money to get more. Never true 04/11/2023 [place] Depression Scale Answer Date Recorded [place] Depression Scale Total 10 04/11/2023 The thought [...] Encounter - Roxi Cardenas OSA - 09/17/2023 1:22 PM EDT Spoke with Lalita. Appointment scheduled. Patient aware of date, time and location of Maternal Medicine appointment. * Telephone Encounter - Roxi Cardenas OSA - 09/17/2023 7:53 AM EDT Phone call to patient. Left message on [facility] voice mail. Encouraged patient to return call to [facility] to assist with scheduling. * Telephone Encounter - Jordyn Leigh CCMA - 09/16/2023 3:33 PM EDT Estimated Date of Delivery: 10/20/23 Please schedule for LONG SCAN, in time frame of within 1 week at location [facility] with the indication of Head is small for age. Borderline small abdominal circumference. EFW:1996 g, 6% . Patient previously completed telemedicine visit 08/22 but cancelled anatomy scan with [facility] 08/28. Previous referral placed due to GDM. Referring Provider: Reyna Dee MD documented in this encounter Plan of Treatment Upcoming Encounters Date Type Department Care Team (Late st Contact Info) Description 09/20/2023 12:30 PM EDT Office Visit Studio Designer OB Maternal Medicine [facility] [address] [place] [address] [address] [place] [address] Anna Turner, DO [address] [place] [address] 09/20/2023 12:30 PM EDT Imaging Maternal Medicine [facility] Messi Lion [address] [place] [address] Dr [address] [place] [address] Health Maintenance Due Date Last Done Comments [...] as of this encounter Care Teams Mold Maker Plastic Molds Relationship Specialty Start Date End Date Nika Avery CRNP [address] [place] [address] PCP - General Nurse Practitioner 09/19/21 documented as of this encounter
--- OUTSIDE RECORDS SUMMARY | 2023-09-30 08:26 | External Medical Summary | Summary of Care ---
Author Name Unknown Organization [facility] Address [address] [place] [address] Phone [phone] Care Team Providers Care Branch Retail Executive Name Role Phone IvyitaliaNika Cate ECHOLS Primary Care Provider Reason for Visit * Evaluate & Treat - Unlimited Visits (Within 3 days (urgent)) - Pending Review Specialty Diagnoses / Procedures Referred By Pa t Referred To Contact Obstetrics/Gynecology / Maternal Medicine Diagnoses Poor growth affecting management of mother in third trimester, single or unspecified fetus Reyna Dee MD [address] [place] [id number] Referral ID Status Reason Start Date Expiration Date Visits Requested Visits Authorized [id number] Pending Review Specialty Services Required 09/16/[phone] Encounter Details Date Type Department Care Team (Late st Contact Info) Description 09/20/2023 12:30 PM EDT Office Visit Medical Transcriptionist OB Maternal Medicine [facility] Lion [address] [place] [address] [address] [place] [address] Anna Turner, DO [address], [place] [id number] Diet controlled gestational diabetes mellitus (GDM) in third trimester*; Encounter for anatomic survey; 35 weeks gestation of ; Poor growth affecting management of mother in third trimester, single or unspecified fetus Allergies Active Allergy Reactions Criticality Noted Date Comments Penicillins Hives 09/19/2021 documented as of this encounter (statuses as of 09/20/2023) Medications Medication Sig Dispensed Refills Start Date [...] by mouth 2 times a day. Active TapZillaToLittle1 Verio Flex System w/Device Kit Use to test blood sugars 4 times daily (fasting, 1 hour after breakfast, lunch, and dinner) 1 Kit 08/14/2023 Active TapZillaTouch Verio In Vitro Strip (Glucose Blood) Use to test blood sugars 4 times daily (fasting, 1 hour after breakfast, lunch, and dinner) 125 Strip 6 08/14/2023 Active TapZillaTouch Delica Lancets 30G Use to test blood sugars 4 times daily (fasting, 1 hour after breakfast, lunch, and dinner) 200 Each 6 08/14/2023 Active Iron-Vitamin C 65-125 MG Oral Tablet (Vitron C) Take 1 Tablet by mouth in the morning. 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 08/27/20234574-VMM-hljhhn 09/03/20236575-OKJ-irrxytc blood sugars stable. Some post prandial elevations along with multiple missed readings. Messaged to be consistent with testing four times daily and reporting. 09/04/2023-RPM message sent; having issues with the lindy and the team contacted to call her to troubleshoot. Numbers sent via message stable. 09/10/23: RPM reviewed; stable overall. Continue diet control. 09/17/20235390-DOB-xikhjyl stable (< 50% elevated) Last Assessment & [...] as of this encounter (statuses as of 09/20/2023) Resolved Problems Problem Noted Date Diagnosed Date Resolved Date History of gestational diabetes 04/11/2023 08/30/2023 documented as of this encounter (statuses as of 09/20/2023) Immunizations Name Administration Dates Next Due COVID-19 mRNA, LNP-s, No Pre serve, 2-Dose Series (SigFig) 09/07/2021,08/17/2021 Hepatitis B Vaccine, Recombi nant, Adjuvanted, [...] money to get more. Never true 04/11/2023 [place] Depression Scale Answer Date Recorded [place] Depression Scale Total 10 04/11/2023 The thought [...] on file documented as of this encounter Progress Notes * Johnny Annajohnny Grigsbyi, DO - 09/20/2023 2:07 PM EDT MATERNAL MEDICINE VISIT Lalita Pritchard presented today at 35w5d for an ultrasound and follow-up of her high risk . She was seen for the following indications: Problem List Items Addressed This Visit Gestational diabetes mellitus (GDM) in third trimester - Primary 3'GTT reviewed. Working with [employer]. Poor growth affecting management of mother in third trimester EFW today at 2.6%ile consistent with severe [...] this take place with OB team at [facility] (MFM follow up not scheduled) Delivery at 37w0d. Other Visit Diagnoses Encounter for anatomic survey 35 weeks gestation of We reviewed today's ultrasound findings. Patient presented at 35w 5d for anatomy survey and growth assessment. No ultrasonic evidence of structural abnormalities, although exam limited by advanced gestational age and position. EFW of 2044 g at 2.6% with AC noted at 3%. POLO 9.8 cm. BPP 8/8. Umbilical artery Doppler normal. Cephalic presentation. (For full details, please refer to ultrasound report provided separately). Ms. Pritchard's questions were answered to her satisfaction. She was advised to contact our office or her OB provider for any additional questions regarding her . RECOMMENDATIONS: Follow up with MFM for ultrasound as clinically indicated. 2x weekly NSTs at [facility]. 37 week delivery. Thank you for allowing us to participate in the care of this patient. Please call with any questions. Anna Turner DO 09/20/2023 2:07 PM documented in this encounter Miscellaneous Notes * Assessment & Plan Note - Anan Turner DO - 09/20/2023 2:07 PM EDT Associated Problem(s): Poor growth affecting management of mother in third trimester EFW today at 2.6%ile consistent with severe [...] this take place with OB team at [facility] (MFM follow up not scheduled) Delivery at 37w0d. * Assessment & Plan Note - Anna Turner DO - 09/20/2023 1:20 PM EDT Associated Problem(s): Gestational diabetes mellitus (GDM) in third trimester 3'GTT reviewed. Working with [employer]. documented in this encounter Plan of Treatment Scheduled Referrals Name Type Priority Associated Diagnoses Orde r Schedule MATERNAL MEDICINE REFERRAL OP Referral Within 3 days (urgent) Poor growth affecting management of mother in third trimester, single or unspecified fetus Ordered: 09/16/2023 Health Maintenance Due Date Last Done Comments [...] as of this encounter Visit Diagnoses Diagnosis Diet controlled gestational diabetes mellitus (GDM) in third trimester- Primary Encounter for anatomic survey 35 weeks gestation of state, incidental Poor growth affecting management of mother in third trimester, single or unspecified fetus documented in this encounter Care Teams Branch Retail Executive Relationship Specialty Start Date End Date Nika Avery CRNP [address] [id number] PCP - General Nurse Practitioner 09/19/21 documented as of this encounter
--- OUTSIDE RECORDS SUMMARY | 2023-09-30 08:26 | External Medical Summary | Summary of Care ---
Author Name Unknown Organization [facility] Address [address] [place] [address] Phone [phone] Care Team Providers Care Data Recovery Planner Name Role Phone Nika Avery Cate ECHOLS Primary Care Provider Reason for Visit * Reason Onset Date Comments Referral 09/16/2023 Encounter Details Date Type Department Care Team (Late st Contact Info) Description 09/16/2023 Telephone Strapper Operator Obstetrics Maternal Medicine, [facility] [address] [place], [place] [phone] [facility], Nurse Strapper Operator [facility] [address], [place] [phone] Referral Allergies Active Allergy Reactions Criticality Noted [...] by mouth 2 times a day. 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 08/27/20230107-WFL-bpdwky 09/03/20235101-SSS-jbkoofq blood sugars stable. Some post prandial elevations along with multiple missed readings. Messaged to be consistent with testing four times daily and reporting. 09/04/2023-RPM message sent; having issues with the lindy and the team contacted to call her to troubleshoot. Numbers sent via message stable. 09/10/23: RPM reviewed; stable overall. Continue diet control. Last Assessment & Plan: CONSIDERATIONS: Reviewed etiology [...] Recommend nutrition consult with RDN (Registered Dietitian Development And Housing Director). Lifestyle changes are also indicated including optimizing [...] mRNA, LNP-s, No Pre serve, 2-Dose Series (Segterra (InsideTracker)) 09/07/2021,08/17/2021 Hepatitis B Vaccine, Recombi nant, Adjuvanted, [...] money to get more. Never true 04/11/2023 [place] Depression Scale Answer Date Recorded [place] Depression Scale Total 10 04/11/2023 The thought [...] Phone call to patient. Left message on Epoch's voice mail. Encouraged patient to return call to [facility] to assist with scheduling. * Telephone Encounter - Jordyn Leigh CCMA - 09/16/2023 3:33 PM EDT Estimated Date of Delivery: 10/20/23 Please schedule for LONG SCAN, in time frame of within 1 week at location [facility] with the indication of Head is small for age. Borderline small abdominal circumference. EFW:1996 g, 6% . Patient previously completed telemedicine visit 08/22 but cancelled anatomy scan with M 08/28. Previous referral placed due to GDM. Referring Provider: Reyna Dee MD documented in this encounter Plan of Treatment Upcoming Encounters Date Type Department Care Team (Late st Contact Info) Description 09/20/2023 10:45 AM EDT Office Visit Gynecology/Obstetrics Anast[facility] Chaudhari [address] [facility] [place] [place] [address] Felicia Magaña CRNP [address] [place] [address] Izabela Chaudhari Stress Tests Tanvir [address] [place] [address] 09/25/2023 10:45 AM EDT Office Visit Strapper Operator Obstetrics Maternal Medicine, [facility] [address] [place] [address] Emeterio Naranjo MD [address] [place] [address] 09/25/2023 10:45 AM EDT Imaging Radiology [facility] [address], [place] [phone] Health Maintenance Due Date Last Done Comments [...] filedocumented as of this encounter Care Teams Data Recovery Planner Relationship Specialty Start Date End Date Nika Avery CRNP [facility] [address] [place] [address] PCP - General Nurse Practitioner 09/19/21 documented as of this encounter
--- OUTSIDE RECORDS SUMMARY | 2023-09-30 08:26 | External Medical Summary | Summary of Care ---
Author Name Unknown Organization [facility] Address [address] [facility] [place] [address] Phone [phone] Care Team Providers Care Rougher Machine Operator Name Role Phone IvyitaliaNika Cate ECHOLS Primary Care Provider Reason for Referral * Evaluate & Treat - Unlimited Visits (Within 3 days (urgent)) - Pending Review Specialty Diagnoses / Procedures Referred By Pa t Referred To Contact Obstetrics/Gynecology / Maternal Medicine Diagnoses Poor growth affecting management of mother in third trimester, single or unspecified fetus Reyna Dee MD [address] [facility] [place] [address] Referral ID Status Reason Start Date Expiration Date Visits Requested Visits Authorized [id number] Pending Review Specialty Services Required 09/16/[phone] Question Answer Referral Priority Within 3 days (urgent) Has the patient had a viability scan? Yes Date performed 03/19/2023 Location performed Radiology Reason for referral Other Please provide additional details Head is small for age. Borderline small abdominal circumference. EFW:1996 g, 6% Where should this appointment be scheduled? [facility] Comments /Para: LMP: Patient's last menstrual period was 01/13/2023 (exact date). Patient is . PAOLO: 10/20/2023, by Last Menstrual Period Pre-Gravid BMI: 26.20 Encounter Details Date Type Department Care Team (Late st Contact Info) Description 09/16/2023 [facility] [address] [facility] [place] [address] Reyna Lowe MD [address] [place] [address] [place] [address] Allergies Active Allergy Reactions Criticality Noted Date Comments Penicillins Hives 09/19/2021 documented as of this encounter (statuses as of 09/16/2023) Medications Medication Sig Dispensed Refills Start Date [...] by mouth 2 times a day. 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 08/27/20235919-YXB-dojtxy 09/03/20234587-FUA-nlsyhgi blood sugars stable. Some post prandial elevations [...] Recommend nutrition consult with RDN (Registered Dietitian Director Of Emergency Nursing). Lifestyle changes are also indicated including optimizing [...] as of this encounter (statuses as of 09/16/2023) Resolved Problems Problem Noted Date Diagnosed Date Resolved Date History of gestational diabetes 04/11/2023 08/30/2023 documented as of this encounter (statuses as of 09/16/2023) Immunizations Name Administration Dates Next Due COVID-19 mRNA, LNP-s, No Pre serve, 2-Dose Series (Helveta) 09/07/2021,08/17/2021 Hepatitis B Vaccine, Recombi nant, Adjuvanted, [...] money to get more. Never true 04/11/2023 [place] Depression Scale Answer Date Recorded [place] Depression Scale Total 10 04/11/2023 The thought [...] as of this encounter Miscellaneous Notes * Addendum Note - Rosemarie Womack LPN - 09/16/2023 3:31 PM EDTAddended by: ROSEMARIE WOMACK on: 09/16/2023 03:31 PM Modules accepted: Orders * Telephone Encounter - Roxi Cardenas OSA - 09/16/2023 2:45 PM EDT Spoke with Lalita. Appointment scheduled. Patient aware of date, time and location of Maternal Medicine appointment.' * Telephone Encounter - Rosemarie Womack LPN - 09/16/2023 2:30 PM EDT MFM referral placed by provider 09/11 and again 09/15 for Head is small for age. Borderline small abdominal circumference. EFW:1996 g, 6% Please assist in scheduling. Referral is not showing up in referral tab. * Telephone Encounter - Reyna Dee MD - 09/16/2023 1:47 PM EDT Please kindly inform the patient that she has been referred to [facility]. documented in this encounter Plan of Treatment Upcoming Encounters Date Type Department Care Team (Late st Contact Info) Description 09/20/2023 10:45 AM EDT Office Visit Gynecology/Obstetrics Anastacio Chaudhari [address] [place] [phone] Felicia Magaña CRNP [address] [place] [address] Chaudhari, Non Stress Tests Tanvir [address] [place] [address] 09/25/2023 10:45 AM EDT Office Visit Professor Of Philosophy Obstetrics Maternal Medicine, [place] [address] [place] [address] Emeterio Naranjo MD [address] [place] [address] 09/25/2023 10:45 AM EDT Imaging Radiology [place] [address], [place] [phone] Scheduled Orders Name Type Priority Associated Diagnoses Orde r Schedule [facility] US MATERNAL 1ST FETUS Medical Imaging Routine Poor growth affecting management of mother in third trimester, single or unspecified fetus Expected: 09/16/2023, Expires: 10/16/2024 Scheduled Referrals Name Type Priority Associated Diagnoses [...] third trimester, single or unspecified fetus- Primary documented in this encounter Care Teams Rougher Machine Operator Relationship Specialty Start Date End Date Nika Avery CRNP [facility] [address] [place] [address] PCP - General Nurse Practitioner 09/19/21 documented as of this encounter
--- OUTSIDE RECORDS SUMMARY | 2023-09-30 08:27 | External Medical Summary | Summary of Care ---
Author Name Unknown Organization [facility] Address [address] [place] [address] Phone [phone] Care Team Providers Care Rolling Mill Plugger Name Role Phone IvyitaliaNika Cate ECHOLS Primary Care Provider Reason for Referral * Evaluate & Treat - Unlimited Visits (Within 3 days (urgent)) - Pending Review Specialty Diagnoses / Procedures Referred By Pa barron Referred To Contact Corporate Administrator Diagnoses Diet controlled gestational diabetes mellitus (GDM) in third trimester Albino Siegel CRNP [address] [place] [id number] Referral ID Status Reason Start Date Expiration Date Visits Requested Visits Authorized [id number] Pending Review Specialty Services Required 08/23/2023 1 1 Question Answer Referral Priority Within 3 days (urgent) Where should this appointment be scheduled? [facility] Program Type Chronic Disease Management Chronic Disease Management Diabetes in Alarm Settings Standard per protocol Comments Has OneTouch Verio meter Reason for Visit * Reason Comments Consultation Gestational diabetes * Evaluate & Treat - Unlimited Visits (Within 10 days (routine)) - Pending Review Specialty Diagnoses / Procedures Referred By Contac t Referred To Contact Obstetrics/Gynecology / Maternal Medicine Diagnoses Gestational diabetes mellitus (GDM) in third trimester, gestational diabetes method of control unspecified Germaine De Santiago PA-C [address] [place] [address] Referral ID Status Reason Start Date Expiration Date Visits Requested Visits Authorized [id number] Pending Review Specialty Services Required 08/14/[phone] Encounter Details Date Type Department Care Team (Late st Contact Info) Description 08/23/2023 1:45 PM EDT Telemedicine [employer] Obstetrics Maternal Medicine, [place] [address] [facility] [address] [place] [address] Albino Siegel CRNP [address] [facility] [address] [place] [address] Diet controlled gestational diabetes mellitus (GDM) in third trimester*; Anemia during in third trimester; Anxiety during ; Tobacco smoking affecting in third trimester; Supervision of high risk , antepartum, third trimester; 31 weeks gestation of Allergies Active Allergy Reactions Criticality Noted Date Comments Penicillins Hives 09/19/2021 documented as of this encounter (statuses as of 08/23/2023) Medications Medication Sig Dispensed Refills Start Date [...] by mouth 2 times a day. 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 Last Assessment & Plan: CONSIDERATIONS: Reviewed etiology [...] Recommend nutrition consult with RDN (Registered Dietitian Professor Of Marketing). Lifestyle changes are also indicated including optimizing [...] given VIS(vaccine information sheet) Rosemarie Womack LPN History of gestational diabetes 04/11/2023 Anxiety during 04/11/2023 Overview: 04/11/23 Stopped lexapro [...] as of this encounter (statuses as of 08/23/2023) Immunizations Name Administration Dates Next Due COVID-19 mRNA, LNP-s, No Pre serve, 2-Dose Series (Gourmant) 09/07/2021,08/17/2021 Hepatitis B Vaccine, Recombi nant, Adjuvanted, [...] Tobacco: Former Cigarettes 1 10 2 012 2021 Smokeless Tobacco: Never Alcohol Use Standard [...] money to get more. Never true 04/11/2023 [place] Depression Scale Answer Date Recorded [place] Depression Scale Total 10 04/11/2023 The thought [...] as of this encounter Progress Notes * Albino Siegel CRNP - 08/23/2023 2:01 PM EDT MATERNAL MEDICINE CONSULT Lalita Pritchard 08/23/23 REFERRING PROVIDER: Germaine De Santiago PA-C Patient location: HOME. I was in a hospital or clinic location. After connecting through [employer],patient was verified with two unique identifiers. 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 Methods to assure confidentiality were taken. Patient acknowledged consent and understanding of pr ivacy and security of the Telemedicine visit. The patient agreed to participate. Lalita Pritchard is a 28 year old with intrauterine at 31w5d (Estimated Date of Delivery: 10/20/23 by exact LMP) who presents today for an MFM consult due to Gestational diabetes, tobaccouse, anemia, and anxiety. HPI/CURRENT : pre- BMI=overweight (70.3 kg (155 lb); 5' 4.5"); complicated by above. 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 Enrolled in Current Health. Instructions provided to report blood sugars each week for MFM review Anxiety during Overview Addendum 08/23/2023 1:54 PM by Albino Siegel CRNP 04/11/23 Stopped lexapro just prior to +HPT. Not interested in restarting 08/23/23 Reports a stable mood in . Denies any suicidal or homicidal ideation. Reports she has a good support system at home. Tobacco smoking complicating Overview Addendum 08/23/2023 1:56 PM by Albino Siegel CRNP 08/23/23 Currently smoking 10 cigarettes/day which is a decrease from 1 pack per day prior to the . Prescribed a nicotine patch but currently not using it I have reviewed this patient's previous OB ultrasound reports, pertinent labwork and testing provided by her referring OB provider. Current Outpatient Medications Medication Sig Dispense Refill Breast Pump Use as directed 1 Each 0 Docusate Sodium 50 MG Oral Capsule Take by mouth 2 times a day. Iron-Vitamin C 65-125 MG Oral Tablet (Vitron C) Take 1 Tablet by mouth in the morning. 90 Tablet 1 Nicotine 14 MG/24HR Transdermal Patch 24 Hour (Nicoderm CQ) Place 1 Patch over 24 hours topically on the skin daily. 28 Patch 0 Concept.ioTouch DelQalendra Lancets 30G Use to test blood sugars 4 times daily (fasting, 1 hour after breakfast, lunch, and dinner) 200 Each 6 Concept.ioTouch Verio Flex System w/Device Kit Use to test blood sugars 4 times daily (fasting, 1 hour after breakfast, lunch, and dinner) 1 Kit 0 Concept.ioTouch Verio In Vitro Strip (Glucose Blood) Use to test blood sugars 4 times daily (fasting, 1 hour after breakfast, lunch, and dinner) 125 Strip 6 28-0.8 MG Oral Tablet Take by mouth. No current facility-administered medications for this visit. Review of patient's allergies indicates: Allergen Reactions Penicillins Hives OB History Para Term AB Living 2 1 1 0 0 1 SAB IAB Ectopic Multiple Live Births 0 0 0 0 1 # Outcome Date GA Lbr Jay/2nd Weight Sex Type Anes PTL Lv 2 Current 1 Term 06/24/17 40w0d 2.722 kg (6 lb) F Vag-Spont LUCIO Complications: Diet controlled gestational diabetes mellitus (GDM) Past Medical History: Diagnosis Date Dysplasia of cervix, low grade (CHANELLE 1) 01/23/2023 Repeat pap 2023 PAN (generalized anxiety disorder) 11/15/2021 Gestational diabetes Histiocytic necrotizing lymphadenitis 2018 Moderate episode of recurrent major depressive disorder (HCC) 11/15/2021 PTSD (post-traumatic stress disorder) 01/11/2022 Past Surgical History: Procedure Laterality Date JAW ARTHROSCOPY/SURGERY 01/2018 LA BX/EXC LYMPH NODE OPEN SUPERFICIAL 2018 left anterior cervical Family History Problem Relation Name Age of Onset Hypertension Mother Hypertension Father Hyperlipidemia Father Other (Accident) Sister MVA Blindness Brother Heart attack Grandmother (Maternal) 60s Alzheimer's disease Grandmother (Maternal) Glaucoma Grandfather (Maternal) Esophageal cancer Grandfather (Maternal) Other (leukemia) Grandmother (Paternal) Other (MDS) Grandmother (Paternal) in her 80s Arrhythmia Grandfather (Paternal) Social History Tobacco Use Smoking status: Former Current packs/day: 0.00 Average packs/day: 1 pack/day for 10.0 years (10.0 ttl pk-yrs) Types: Cigarettes Start date: 2011 Quit date: 2021 Years since quittin.5 Smokeless tobacco: Never Vaping Use Vaping status: Never Used Substance Use Topics Alcohol use: Not Currently Drug use: Not Currently REVIEW OF SYSTEMS: headaches: no nausea/vomiting: occasional nausea reports movement: yes abdominal pain/tenderness/cramping/contractions: no vaginal bleeding: no vaginal leaking of fluid: no all other systems negative PHYSICAL EXAM: LMP 01/13/2023 (Exact Date) General: Well appearing Psych: Alert to time, place, and person and Pleasant DISCUSSION/RECOMMENDATIONS: Problem List Items Addressed This Visit OB Tanvir Chaudhari Declined HBP Anemia during in third trimester Anxiety during CONSIDERATIONS: Untreated maternal anxiety and depression may be associated with an increased risk of multiple poorobstetrical outcomes including miscarriages, low weight, and delivery. Women with a history of anxiety or depression are at risk for recurrence both during and/or the period. Studies of first-trimester SSRI exposure do not demonstrate consistent data to support an increasedrisk for structural malformations. Anti-anxiety or depression medications have been associated with transient effects (withdrawal syndrome). RECOMMENDATIONS: Mental illness can and should be treated during when the benefits of treatment outweigh potential risks. Referral to behavioral health services as clinically indicated. Gestational diabetes mellitus (GDM) in third trimester - Primary CONSIDERATIONS: Reviewed etiology and risks associated with gestational diabetes mellitus (GDM), including risks topregnancy, fetus, and maternal progression to Type 2 [...] Recommend nutrition consult with RDN (Registered Dietitian Professor Of Marketing). Lifestyle changes are also indicated including optimizing gestational weight gain and physical activity of 30 minutes per day, if not otherwise contraindicated in . Insulin is preferred if medications are indicated to optimize euglycemia. Metformin (preferred overglyburide) may also be used in some circumstances. [...] with 75-gram glucose load 6-8 weeks . Tobacco smoking complicating Strongly advised patient to stop using tobacco. [...] is if those around you do not smokeas well. Other Visit Diagnoses Supervision of high risk , antepartum, third trimester 31 weeks gestation of Follow up ultrasound with Maternal Medicine is scheduled on 08/29/[address] Turner for anatomy scan secondary to Gestational diabetes, tobacco use, anemia, and anxiety. Patient is aware of upcoming MFM appointment. KINZA Espinoza 08/23/2023 2:25 PM documented in this encounter Miscellaneous Notes * Assessment & Plan Note - Albino Siegel CRNP - 08/23/2023 2:00 PM EDT Associated Problem(s): Gestational diabetes mellitus (GDM) in third trimester CONSIDERATIONS: Reviewed etiology and risks associated with gestational diabetes mellitus (GDM), including risks topregnancy, fetus, and maternal progression to Type 2 [...] Recommend nutrition consult with RDN (Registered Dietitian Professor Of Marketing). Lifestyle changes are also indicated including optimizing gestational weight gain and physical activity of 30 minutes per day, if not otherwise contraindicated in . Insulin is preferred if medications are indicated to optimize euglycemia. Metformin (preferred overglyburide) may also be used in some circumstances. [...] with 75-gram glucose load 6-8 weeks . * Assessment & Plan Note - Albino Siegel CRNP - 08/23/2023 1:55 PM EDT Associated Problem(s): Tobacco smoking complicating Strongly advised patient to stop using tobacco. [...] is if those around you do not smokeas well. * Assessment & Plan Note - Albino Siegel CRNP - 08/23/2023 1:54 PM EDT Associated Problem(s): Anxiety during CONSIDERATIONS: Untreated maternal anxiety and depression may be associated with an increased risk of multiple poorobstetrical outcomes including miscarriages, low weight, and delivery. Women with a history of anxiety or depression are at risk for recurrence both during and/or the period. Studies of first-trimester SSRI exposure do not demonstrate consistent data to support an increasedrisk for structural malformations. Anti-anxiety or depression medications have been associated with transient effects (withdrawal syndrome). RECOMMENDATIONS: Mental illness can and should be treated during when the benefits of treatment outweigh potential risks. Referral to behavioral health services as clinically indicated. * Pt Handout (on AVS) - Albino Siegel CRNP - 08/23/2023 1:52 PM EDT Images from the original note were not included. [address] Understanding Carbohydrates Just like a car needs the right type of fuel to run, you need the right kind of food to function. To keep your energy level up, your body needs food that has carbohydrates (carbs). But carbs raise blood sugar levels higher and faster than other kinds of food. Your dietitian will work with you to figure out the amount of carbs you need. Carbs come in 3 types: starches, sugars, and fiber. Starches Starches are found in grains, some vegetables, and beans. Grain products include bread, pasta, cereal, and tortillas. Starchy vegetables include potatoes, peas, corn, ryan beans, yams, and squash. Kidney beans, pitts beans, black beans, garbanzo beans, and lentils also have starches. Sugars Sugars are found naturally in many foods. Or they can be added. Foods that contain natural sugar include fruits and fruit juices, dairy products, honey, and molasses. Added sugars are found in most desserts, processed foods, candy, regular soda, and fruit drinks. These are very helpful to treat lowblood sugar (hypoglycemia). They give you sugar quickly. Try to keep at least 15 to 20 grams of these simple sugars with you at all times. Eat or drink these if you start to have symptoms of low blood sugar. Fiber Fiber comes from plant foods. Your body can't digest most fiber. Instead of raising blood sugar levels like other carbs, fiber stops blood sugar from rising too quickly. Fiber is found in fruits, vegetables, whole grains, beans, peas, and many nuts. Understanding how to count your carbs Keep track of the amount of carbs you eat. This can help you keep the right balance of carbs, physical activity, and medicine. The amount of carbs you need will be different from what other people need. How much you need depends on many things. These include your health, the medicines you take, andhow active you are. Your healthcare team will help you figure out the right amount of carbs for you. You may start with 45 to 60 grams of carbs per meal, depending on your case. Carb counting is a system that helps you keep track of the carbohydrates you eat at each meal. Carbs come from many foods. These include grains, starchy vegetables, fruit, milk, beans, and snackfoods. You can either count carbohydrate grams or carbohydrate servings. When you count carbohydrate servings, 1 carbohydrate serving = 15 grams of carbohydrates. Here are some examples of foods that have about 15 grams of carbs (1 serving of carbohydrates): 1/2 cup of canned or frozen fruit A small piece of fresh fruit (4 ounces) 1 slice of bread 1/2 cup of oatmeal 1/3 cup of rice 4 to 6 crackers 1/2 Honduran muffin 1/2 cup of black beans 1/4 of a large baked potato (3 ounces) 2/3 cup of plain fat-free yogurt 1 cup of soup 1/2 cup of casserole 6 chicken nuggets 8-mcue-cymnhl brownie or cake without frosting 2 small cookies 1/2 cup of ice cream or sherbet Carb counting is easier when food labels are available. Look at the label to see how many grams of total carbs per serving the food contains. Then you can figure out how much you should eat. If your food doesn't have a nutrition label, you should be able to get an idea of how many carbs there are per serving by using a book or website. Two very important lines to look at on the label are the serving size and the total carbohydrate amount per serving. Here are some tips for using food labels to count your carbs: Check the serving size. The information on the label is based on that serving size. If you eat more than the listed serving size, you may have to double or triple the other information on the label. Check the total grams of carbs. Total carbohydrate from the label includes sugar, starch, and fiber. Be sure to use the total carbohydrate number (minus the fiber) and not sugar alone. Know how many grams of carbs you can have. Be familiar with the matching portion sizes. Compare labels. Compare the labels of different products. Look at serving sizes and total carbs to find the products that work best for you. Don't forget protein and fat. With the focus on carb counting, it might be easy to forget protein and fat in your meals. Don't forget to include sources of protein and healthy fat to balance your meals. Also watch how much salt (sodium) you eat. This is especially true if you have high blood pressure. If you have diabetes, limit the amount of sodium to less than 2,300 mg a day. It?s also important to be consistent with the amount of carbs and time you eat when taking a fixed dose of diabetes medicine. Work with your healthcare provider or dietitian if you need more help. They can help you keep track of your carbs. They can also help you figure out how many grams of carbs you should have. Last Reviewed Date: 04/12/202319996035-3522 [employer]. All rights reserved. This information is not intended as a substitute for professional medical care. Always follow your healthcare professional's instructions. * Pt Handout (on AVS) - Albino Siegel CRNP - 08/23/2023 1:52 PM EDT 92806 Understanding Blood Sugar During Gestational diabetes causes high blood sugar levels during . You are at risk of developing, or perhaps have already developed, gestational diabetes. Controlling your blood sugar can help prevent problems for you and your baby. Your body turns food into blood sugar As food is digested, it turns into sugar (glucose), a fuel that feeds your body. This sugar goes into your bloodstream. Your body then releases a substance called insulin to help your body use blood sugar correctly. Blood sugar goes to your baby The placenta is where nutrients in your blood are exchanged with your baby's blood. Your blood sugar goes to your baby from the placenta through the umbilical cord. Your baby uses this sugar to grow. Too much blood sugar affects you and your baby During , the placenta makes hormones that can disrupt the way your body uses insulin. If your body can't use insulin correctly, your blood sugar level gets too high. Then too much blood sugar goes to your baby. This can cause problems for both you and your baby. Controlling your blood sugar helps prevent problems You can lower your blood sugar by eating right, exercising, and taking medicines that your healthcare provider prescribes to control your blood sugar. If you keep your blood sugar in control, the risks to you and your baby are the same as those for a normal . Last Reviewed Date: 08/11/202019998596-4545 [employer]. All rights reserved. This information is not intended as a substitute for professional medical care. Always follow your healthcare professional's instructions. * Pt Handout (on AVS) - Albino Siegel CRNP - 08/23/2023 1:52 PM EDT Images from the original note were not included. 80389 Gestational Diabetes: Exercise Exercise can help you keep your blood sugar in a normal range. That?s because your body uses more blood sugar when you exercise. Diabetes in can often be managed with careful nutrition and exercise alone. Then you may not need medicine to control your blood sugar. Exercise regularly Your healthcare provider may want you to exercise each day. The best time depends on when your blood sugar is highest. Exercising may also help ease some common symptoms of . These include bloating, constipation, and backaches. Ask about exercise at your first care visit. Your provider will work with you to make an exercise plan that fits your needs. Here are some tips: Aim to exercise for 30 to 60 minutes a day. Do this at moderate intensity. This means you're moving enough to raise your heart rate and start sweating. But you can still talk normally. Try breaking up daily exercise into 2 or 3 sessions. For example, take a 15- minute walk after each meal. Exercise with a friend or your partner. This may help you stick to your exercise plan. Go at a comfortable pace. Don?t tire yourself out. Exercise safely Ask your provider about exercise safety for you and your baby. Walking, swimming, and low-impact orwater aerobics are often the safest things to do. Other safety tips include: Don't do activities where you jump, turn, twist, stop or start quickly. Don't lift heavy weights. Don't exercise on your back after the first trimester. This can put too much pressure on an important vein. It can limit blood flow to the baby. If you do yoga or Pilates, find a class designed for . Use a sports bra to support your breasts. You may also want to use a belly support belt later inpregnancy. Don't get overheated. Don't do hot yoga or hot Pilates. Don't raise your heart rate to a level that makes it hard to talk. Drink plenty of water. If you use insulin, carry a carbohydrate snack with you. If you walk or do low-impact aerobics, wear sturdy shoes. If you haven?t eaten in 2 or more hours, have a light snack before exercising. Don't do contact sports that put you at risk of being hit in the belly. These include boxing, ice hockey, soccer, and basketball. Don't go skydiving or scuba diving. Don't do things that may cause a serious fall. These include horseback riding, gymnastics, and off-road cycling. Use a stationary bike. It's a safer choice than a standard bike. It will stop you from getting off balance with your growing belly. When it's not safe to exercise It's not advised to exercise when if you have any of these health conditions: Some types of heart and lung diseases with twins or more, and at risk for labor labor of your water has broken (ruptured membranes) Placenta previa later than 26 weeks of Preeclampsia or high blood pressure due to Severe anemia Cervical insufficiency or cerclage When to call your healthcare provider Call your provider right away or go to the emergency room (ER) if you have any of these: Belly pain Shortness of breath before starting exercise Vaginal bleeding Dizziness or feeling faint Chest pain Headache Decreased movement contractions Muscle weakness Calf pain or swelling Fluid leaking from the vagina Last Reviewed Date: 03/14/202119992806-1894 [employer]. All rights reserved. This information is not intended as a substitute for professional medical care. Always follow your healthcare professional's instructions. * Pt Handout (on AVS) - Albino Siegel CRNP - 08/23/2023 1:52 PM EDT Images from the original note were not included. 22440 Healthy Meals for Diabetes Figuring out what to eat can be one of the most confusing parts of diabetes. It will help you to have a meal plan. You can ask your healthcare team to help you make a meal plan that fits your needs. Your meal plan tells you when to eat your meals and snacks, what kinds of foods to eat, and how muchof each food to eat. You don?t have to give up all the foods you like but following some guidelines will set you up for success in managing your diabetes. A healthcare provider will help you develop a meal plan that fits your needs. Choose healthy carbohydrates Starches, sugars, and fiber are all types of carbohydrates (carbs). Carbs can get a bad reputation since they affect your blood sugar the most. It is important to remember that your body benefits from the right amount of healthy carbs. Fiber can help lower your cholesterol and triglycerides. Fiber is also healthy for your heart. You should have 20 to 35 grams of total fiber each day. Fiber comes from plants. Fiber-rich foods include: Whole-grain breads and cereals Nuts Brown rice and quinoa Whole-wheat pasta Fruits and vegetables Beans and peas Keep track of the amount of carbs you eat. This can help you keep the right balance of physical activity and medicine. The amount of carbs needed will vary for each person. It depends on many things such as your health, the medicines you take, and how active you are. Your healthcare team will help you figure out the right amount of carbs for you. You may start with around 45 to 60 grams of carbs per meal, depending on your needs. Here are some examples of foods that have about 15 grams of carbs (1 serving of carbs): 1/2 cup of canned or frozen fruit A small piece of fresh fruit (4 ounces) 1 slice of bread 1/2 cup of oatmeal 1/3 cup of rice 4 to 6 crackers 1/2 Honduran muffin 1/2 cup of black beans 1/4 of a large baked potato (3 ounces) 2/3 cup of plain fat-free yogurt 1 cup of soup 1/2 cup of casserole 6 chicken nuggets 2-deps-cfuxcr brownie or cake without frosting 2 small cookies 1/2 cup of ice cream or sherbet Choose healthy protein foods Proteins play a burger role in building healthy muscles, bones, skin, and many other parts of your body. Eating protein that's low in fat can help you control your weight. It also helps keep your heart healthy. Low-fat protein foods include: Fish Plant proteins, such as lentils, beans, peas, nuts, and soy products like tofu and soymilk Lean meat with all visible fat removed Poultry with the skin removed Low-fat or nonfat milk, cheese, and yogurt Limit unhealthy fats and sugar Saturated and trans fats are unhealthy for your heart. They raise LDL (bad) cholesterol. Fat is also high in calories. To cut down on unhealthy fats and sugar, limit these foods: Butter or margarine Palm and palm kernel oils and coconut oil Cream Cheese [place] Lunch meats Ice cream Sweet bakery goods such as pies, muffins, and donuts Jams and jellies Candy bars Regular sodas How much to eat The amount of food you eat affects your blood sugar. It also affects your weight. Your healthcare team will tell you how much of each type of food you should eat. Use measuring cups and spoons and a food scale to measure serving sizes. Learn what a correct serving size looks like on your plate. This will help when you[facility] and can?t measure your servings. For instance, a serving of meat is about the size of the palmof your hand. Eat only the number of servings given on your meal plan for each food. Don?t take seconds. Learn to read food labels. Be sure to look at serving size, total carbohydrates, fiber, calories, sugar, salt, and saturated and trans fats. Look for healthier options such as foods with no added sugar or salt. Plan ahead for parties. Then you can still have a good time without diving into unhealthy food choices. Bring a healthy dish to [employer]. Choose healthy snacks When it comes to snacks, we often think about foods with added sugar and fats. But there are many other options for healthier snack choices. Here are a few snack ideas to choose from: Snacks with less than 5 grams of carbohydrates 1 piece of string cheese 3 celery sticks plus 1 tablespoon of peanut butter 5 wilson tomatoes plus 1 tablespoon of ranch dressing 1 hard-boiled egg 1/4 cup of fresh blueberries 5 baby carrots 1 cup of light popcorn 1/2 cup of sugar-free gelatin 15 almonds Snacks with about 10 to 20 grams of carbohydrates 1/3 cup of hummus plus 1 cup of fresh cut non-starchy vegetables (carrots, green peppers, broccoli, celery, or a mix) 1/2 cup of fresh or canned fruit plus 1/4 cup of cottage cheese 1/2 cup of tuna salad with 4 crackers 2 rice cakes and a tablespoon of peanut butter 1 small apple or orange 3 cups light popcorn 1/2 of a turkey sandwich (1 slice of whole-wheat bread, 2 ounces of turkey, and mustard) Portion sizes are important for controlling your blood sugar and staying at a healthy weight. Stockup on healthy snack foods so you always have them on hand. When to eat Your meal plan will likely include breakfast, lunch, dinner, and some snacks. Try to eat your meals and snacks at about the same times each day. Eat all your meals and snacks. Skipping a meal or snack can make your blood sugar drop too low. It can also cause you to eat too much at the next meal or snack. Then your blood sugar could get toohigh. Be patient It can be stressful trying to figure out what to eat. But over time, you?ll form new habits around your meal plan and healthy guidelines. Then eating right for your blood sugar will be much easier. Last Reviewed Date: 05/13/202319990950-4953 [employer]. All rights reserved. This information is not intended as a substitute for professional medical care. Always follow your healthcare professional's instructions. * Pt Handout (on AVS) - Albino Siegel CRNP - 08/23/2023 1:52 PM EDT Images from the original note were not included. [id number] If You Need Extra Insulin During During , your body may not be able to make enough insulin to control your blood sugar. If this happens, you may need extra insulin. This will help control your blood sugar. In some cases, anoral antidiabetic medicine may be used. An example of this is glyburide. But insulin is used most often. Insulin is a natural substance. It is not addictive. It does not harm your baby. It does not cross the placenta. That means it does not affect your baby the way taking a pill would. If you did not have diabetes before , you will likely stop taking insulin after your baby is born. Learning to use insulin Your healthcare provider will prescribe your insulin. They will teach you how to give yourself a shot. With practice, you?ll get comfortable doing it. You will need to inject it 1 or more times a day. Insulin is injected into fatty tissue. The best site for a shot of insulin is in your belly area. But you can also do the shot in your upper arm or thigh. Talk with your healthcare provider about where to give the shot. Here are some steps to follow: Choose an injection site. Clean it with alcohol if the skin is dirty. Pinch a fold of skin. Insert the needle at a steep angle. The best angle will depend on your body type, the length of the needle, and where you put the shot. Your healthcare provider will help youfind the best angle. Keeping the skin pinched, push the plunger down. This injects the insulin. Release the pinched skin. Remove the needle from your skin. If you see blood or insulin leaking from your skin, press firmly on the site for 5 to 8 seconds. Don?t rub your skin in the area. Warren and syringes should be used only 1 time. After using, throw them away in a puncture-proof container. This is known as a sharps container. Don?t throw needles in your household trash. Talk to your healthcare provider if you have any questions or concerns about taking insulin. The best site for injecting insulin is your abdomen. But you can also inject into an upper arm or thigh. Talk with your health care provider about where to give yourself a shot. Finding the right dose for you Your healthcare provider will work with you to find the right dose of insulin for you. It may take time. This is because you need to balance your insulin with your food and exercise. And your body needs more insulin as your baby grows. You must check your blood sugar several times a day. This is to be sure your insulin is working. Ifyour blood sugar is too high or too low, your healthcare provider will adjust your dose. Low blood sugar Taking insulin puts you at risk of low blood sugar. Symptoms of low blood sugar include: Shakiness Dizziness Weakness Confusion If you feel any of these symptoms, check your blood sugar right away. Always treat low blood sugar quickly. To do this, eat 15 grams of fast-acting sugar, such as: 3 glucose tablets 5 to 6 pieces of hard candy 1 to 2 tablespoons of honey or sugar cup fruit juice or regular, nondiet soda 1 cup fat-free milk Then check your blood sugar again in 15 minutes. If your blood sugar is still low, eat another 15 grams of sugar. If your blood sugar does not return to the target range in 30 minutes, call your healthcare provider. Last Reviewed Date: 01/11/202219997749-7506 [employer]. All rights reserved. This information is not intended as a substitute for professional medical care. Always follow your healthcare professional's instructions. * Pt Handout (on AVS) - Albino Siegel CRNP - 08/23/2023 1:52 PM EDT Images from the original note were not included. Managing Gestational Diabetes - Video Being diagnosed with gestational diabetes can be stressful. But with proper care and management, you can stay healthy and deliver a healthy baby. In many cases, gestational diabetes goes away on its own after the mother gives . To view the video go to this web address: [email or web address] Or, scan this QR code with your smart phone [employer] * Pt Handout (on AVS) - Albino Siegel CRNP - 08/23/2023 1:52 PM EDT Images from the original note were not included. [id number] What Is Gestational Diabetes? Gestational diabetes is a type of diabetes that happens during . Unlike type 1 diabetes, gestational diabetes is not caused by having too little insulin. Instead, hormones made by your placenta keep your body from using insulin as it should. This is called insulin resistance. Blood sugar (glucose) then builds up in your blood instead of being absorbed by the cells in your body and used for energy. This can cause high blood sugar and can cause problems for both you and your baby. You can take steps to control your blood sugar. This will help reduce the risks for you and your baby. Managing gestational diabetes You need to control your blood sugar while you are . Your healthcare team will help you make a plan to do this. This plan will include: Eating the right foods. This is the main way to control your blood sugar. You need to eat a variety of healthy foods each day. To help you plan changes in your diet, you will likely work with a registered dietitian (RD). This is an expert on food and nutrition. The dietitian may have you take part in a nutrition program to help you reach your goals. Getting exercise. Your body uses more blood sugar when you exercise. Your healthcare team can help you pick the best kinds of exercise for you. Checking your blood sugar. You will likely need to check your blood sugar at home. You will do this 2 or more times a day. You will likely check your fasting blood sugar and after meal (postprandial) blood sugar. Your healthcare team will teach you how. They will talk with you about your blood sugar goals. Your blood sugar may also be tested every week or so at a clinic. If your blood sugar stays too high, you may need to have insulin shots during your . Risks to your baby If your blood sugar stays high, your baby is at risk for these problems: Your baby may grow too large. If your blood sugar stays too high, your baby may grow too large. This is called macrosomia. This means a baby is too big for a safe vaginal . A large baby may get their shoulder stuck behind the pubic bone during . This is called shoulder dystocia. The baby's arms and shoulders could be injured. This may cause permanent arm damage. The baby may also have low oxygen levels (hypoxia) while they are stuck. Hypoxia can lead to cerebral palsy. In rare cases, it can lead to . Your baby?s organs may not be fully grown at . If you have diabetes, your baby may need to be delivered early. This may be because of problems with the . Or it may be because of risks to you or your baby. If your baby is delivered early, their lungs may not work well. This is called respiratory distress syndrome. Your baby's liver also may not work normally. And your baby may have yellow color in their skin and eyes (jaundice) after . Your baby?s blood sugar may be low after . If your blood sugar is too high, your baby makesextra insulin. The baby will keep making extra insulin right after . Your baby may need to be treated for low blood sugar. Your baby could be stillborn. This is very rare. But your baby could before if your blood sugar stays high for too long. Risks to you If you don?t control your blood sugar, you are more likely to have: High blood pressure. High blood sugar makes you more likely to have high blood pressure during your . This is a danger to your health. It could lead to early delivery for your baby. Infections. High blood sugar makes you more likely to have bladder, kidney, and vaginal infections. Trouble breathing. You may feel short of breath. High blood sugar can cause too much fluid around the baby. This is called polyhydramnios. Your abdomen gets big and pushes up on your lungs. Difficult labor. Your delivery may be harder. And your recovery may take longer. If your blood sugar stays too high, your baby may grow too large. A large baby might cause injury to you during . Or the baby may have to be delivered by section (). This means making a cut (incision) in your abdomen and uterus. A is a common risk of gestational diabetes. Reduce your future risk for type 2 diabetes Women who have gestational diabetes are at higher risk of type 2 diabetes later. You are also at higher risk for gestational diabetes in your next . You can help reduce your risk in these ways: Lose excess weight. Be as active as you can. Eat more fruits and vegetables. Eat fewer processed foods. Get regular blood tests to check for diabetes. Breastfeed your baby. Who is at risk for gestational diabetes? You're more at risk if you: Are overweight Have a family history of diabetes Have had a baby who before Had gestational diabetes in the past Are , , , [place] or [place] , or How daily issues affect your health Many things in your daily life impact your health. This can include transportation, money problems,housing, access to food, and childcare. If you can?t get to medical appointments, you may not receive the care you need. When money is tight, it may be difficult to pay for medicines. And living far from a grocery store can make it hard to buy healthy food. If you have concerns in any of these or other areas, talk with your healthcare team. They may know of local resources to assist you. Or they may have a staff person who can help. Last Reviewed Date: 09/11/202219996292-6722 [employer]. All rights reserved. This information is not intended as a substitute for professional medical care. Always follow your healthcare professional's instructions. * Pt Handout (on AVS) - Albino Siegel CRNP - 08/23/2023 1:52 PM EDT Images from the original note were not included. Diabetes and Healthy Eating - Video If you have diabetes, you know it's important to keep your blood glucose level within a safe range.One of the best ways to do this is by eating a healthy diet. Let's take a few minutes to learn about some good eating habits that can make a difference for you. To view the video go to this web address: https://bit.[email or web address] Or, scan this QR code with your smart phone [employer]. * Pt Handout (on AVS) - Albino Siegel CRNP - 08/23/2023 1:52 PM EDT Images from the original note were not included. [id number] Diabetes: Shopping for and Making Meals Having diabetes doesn?t mean you have to shop in a special aisle or look for special foods. But you'll need to make healthy food choices. Comparing items and reading food labels is burger. This can helpyou find the healthiest foods for you and your family. Comparing items When you shop, compare items to find the best ones for your needs. Keep these facts in mind: No sugar added doesn't mean a product is sugar-free. Sugar-free means less than 1/2 gram (g) of sugar per serving. Fat-free means less than 1/2 g of fat per serving. This does not necessarily mean the product islow in calories. Low fat means 3 g fat or less per serving. Reduced fat or less fat means 25% less fat than the regular version. Some of this fat may be saturated or trans fat. And the calories per serving may be similar to the regular version. Making small changes Don?t try to change all of your eating habits at once. Here are some ideas to start with: Try fat-free or low-fat cheese, milk, and yogurt. Also, try leaner cuts of meat. This will help you cut down on saturated fat. Try whole-grain bread, brown rice, and whole-wheat pasta. Load up on fresh or frozen vegetables. If you buy canned, choose low-sodium vegetables. Stay away from processed foods as much as possible. They tend to be low in fiber and high in trans fats and salt. Limit how much salt you have to 2,300 mg per day. Try tofu, soy milk, or meat substitutes.?They can help you cut cholesterol and saturated fat outof your diet. Learning to read food labels To find healthy foods that help you control blood sugar, learn how to read food labels. Look for the Nutrition Facts label on packaged foods. It will tell you how many servings there are in the package. It will also tell you the amount of carbohydrate, sugar, fat, and fiber in each serving. Then you can decide if the food fits into your meal plan. Using the food label So, once you have the food label, what do you do with it? The food label helps in many ways. Use itto: Compare items. Decide which is the best for your health needs. Track the number of carbohydrates in your portions. Figure out how many servings of a food you can have and still stay within the number of carbohydrates for that meal. Planning meals For good blood sugar control, plan what and when you?ll eat. Start by making a meal plan that includes all the food groups. Then time your meals and exercise to help keep your blood sugar level steady. You may need to adjust your plan for special situations. But 3 of the best ways to manage your blood sugar are to: Eat meals and snacks at the same time every day Eat about the same amount of food Exercise each day Eating from all the food groups A healthy meal plan starts with eating many different types of foods. Look for lean meats, fresh fruits and vegetables, whole grains, and low-fat or nonfat dairy products. Eating a wide variety of healthy foods offers the nutrients your body needs. It can also keep you from getting bored with your meal plan. Reducing liquid sugars Extra calories from sodas, sports drinks, and fruit drinks make it hard to keep blood sugar in range. Cut as many liquid sugars from your meal plan as you can. This includes most fruit juices. These are often high in natural or added sugar. Instead, take plenty of water and other sugar-free drinks. Eating less fat If you need to lose some weight, try to reduce the amount of fat in your diet. This can also help lower your cholesterol level. This can keep blood vessels healthier. Cut fat by using only small amounts of liquid oil for cooking. Read food labels carefully. This can help you stay away from foods with unhealthy trans fats. Timing your meals When it comes to blood sugar control, when you eat is as important as what you eat. You may need toeat several small meals spaced evenly during the day. This can help you stay in your target range. So don?t skip breakfast or wait until late in the day to get most of your calories. Doing so can make your blood sugar rise too high or fall too low. Cooking wisely Broil, steam, bake, or grill meats and vegetables. Don't rivero them. Flavor foods with vegetable pure, lemon or [place] juice, or herb seasonings. Don't use cream-based sauces or sugary glazes. Remove skin from chicken and turkey before serving. Look in cookbooks for easy low-fat, low-sugar recipes. When making your normal recipes, cut sugar by 1/2. Cut fat by 1/3. Last Reviewed Date: 05/13/202319998043-6882 [employer]. All rights reserved. This information is not intended as a substitute for professional medical care. Always follow your healthcare professional's instructions. * Pt Handout (on AVS) - Albino Siegel CRNP - 08/23/2023 1:52 PM EDT Images from the original note were not included. [id number] Gestational Diabetes: After Your blood sugar will most likely return to normal after delivery. But gestational diabetes is a warning sign that you are at risk of getting diabetes later in life. You?re also more likely to have gestational diabetes with your next . But you can take steps to reduce these risks. Taking care of yourself Even if your blood sugar goes back to normal, you still need to take care of yourself. This will help prevent diabetes later in life. You'll need to: Keep your weight down. Eating food that is low in fat and sugar can help you control your weight. If you?re overweight, your risk of getting diabetes in 10 to 15 years more than doubles. Keeping your weight down also reduces your risk of gestational diabetes in your next . Get regular exercise. Exercise helps lower your blood sugar. It can also help you control your weight. Try to work up to at least 150 to 300 minutes of moderate exercise every week. This is at least 30 minutes each day. Have your blood sugar checked. Make an appointment to have your blood sugar checked 6 to 8 weeksafter delivery. If your blood sugar is still high, you may have type 2 diabetes. Your healthcare provider will tell you more about how to manage diabetes long-term. Have regular diabetes screenings. Have blood tests every year, or as often as your healthcare provider advises. Breastmilk is the best food for your baby. Giving only breastmilk is advised for at least your baby's first 6 months. may also help lower your blood sugar. Your healthcare provider can show you how to breastfeed. Be sure to eat healthy foods and drink extra water while you?re . You may find exercise easier right after . This is when your breasts may feel chemical educator. Planning a future Your blood sugar needs to be back to normal before you get again. Have your blood sugar checked before you plan your next . And remember that it?s possible to get again soon after you give . Talk with your healthcare provider about the best method of control for you and your partner. Last Reviewed Date: 03/14/202119991337-9253 [employer]. All rights reserved. This information is not intended as a substitute for professional medical care. Always follow your healthcare professional's instructions. documented in this encounter Plan of Treatment Upcoming Encounters Date Type Department Care Team (Late st Contact Info) Description 08/29/2023 1:00 PM EDT Imaging [facility] [address] [phone] 08/30/2023 11:15 AM EDT Office Visit Gynecology/Obstetrics Gabrielruth Watson [place] [id number] Latrice Cardozo CRNP [address] [id number] Nurse [facility] Return [place] [id number] 09/11/2023 2:30 PM EDT [facility] [address] [place] [address] Aniyah Cardoza RDN [address] [place] [address] Scheduled Referrals Name Type Priority Associated Diagnoses Orde r Schedule REMOTE PATIENT MONITORING REFERRAL Referral Within 3 days (urgent) Diet controlled gestational diabetes mellitus (GDM) in third trimester Ordered: 08/23/2023 Health Maintenance Due Date Last Done Comments [...] diabetes mellitus (GDM) in third trimester- Primary Anemia during in third trimester Anxiety during Tobacco smoking affecting in third trimester Supervision of high risk , antepartum, third trimester 31 weeks gestation of state, incidental documented in this encounter Care Teams [place] Plugger Relationship Specialty Start Date End Date Nika Avery CRNP [address] [id number] PCP - General Nurse Practitioner 09/19/21 documented as of this encounter
--- OUTSIDE RECORDS SUMMARY | 2023-09-30 08:27 | External Medical Summary | Summary of Care ---
Author Name Unknown Organization [facility] Address [address] [place] [address] Phone [phone] Care Team Providers Care Data Analytics Developer Name Role Phone Nika Avery Cate ECHOLS Primary Care Provider Reason for Visit * Reason Onset Date Comments Home Monitoring Orders Only 08/23/2023 Encounter Details Date Type Department Care Team ([facility] st Contact Info) Description 08/23/2023 Home Monitoring Care Coordination [address], [place] [id number] Albino Siegel CRNP [address] [address] Diet controlled gestational diabetes mellitus (GDM) in third trimester* Allergies Active Allergy Reactions Criticality Noted Date [...] by mouth 2 times a day. 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 Enrolled in Current [...] Recommend nutrition consult with RDN (Registered Dietitian Service Center Representative). Lifestyle changes are also indicated including optimizing [...] mRNA, LNP-s, No Pre serve, 2-Dose Series (Medlert) 09/07/2021,08/17/2021 Hepatitis B Vaccine, Recombi nant, Adjuvanted, [...] money to get more. Never true 04/11/2023 [place] Depression Scale Answer Date Recorded [place] Depression Scale Total 10 04/11/2023 The thought [...] as of this encounter Progress Notes * Ajay Santiago, [facility] Gear Shaver Set Up Operator - 08/23/2023 3:32 PM EDT Patient has been successfully enrolled to the [id number] Diabetes Management in program. Standard alarm settings have been set as follows: Singular glucose level > 200 Singular glucose level < 60 Patient has been advised to take blood sugar four times a day (fasting upon waking, and one hour after each meal). Patient has been oriented to remote patient monitoring, assisted with initial device set-up, and provided with instruction and education regarding the program. Patient understands that this monitoring should not be used as a replacement for emergency and/or urgent care. If patient experiences any urgent symptoms, they are aware to call office/weapons and tactics instructor provider for additional instructions. In emergency situations, they will report directly to the ED for further evaluation. If you would like to customize the alert parameters and/or instructions for this patient, please let me know and we can have them changed documented in this encounter Plan of Treatment Upcoming Encounters Date Type Department Care Team (Late st Contact Info) Description 08/29/2023 1:00 PM EDT Imaging Maternal Medicine Imaging, Tanvir Chaudhari [address] [place] [phone] 08/30/2023 11:15 AM EDT Office Visit Gynecology/Obstetrics Anastacio Chaudhari [address] [facility] [place] [address] Backer, KINZA Cross [address] [place] [address] Nurse [facility] Return Tanvir [address] [facility] [place] [address] 09/11/2023 2:30 PM EDT Telemedicine Nutrition Services, [place] [address] [place] [id number] Aniyah Cardoza RDN [address] [place] [address] Health Maintenance Due Date Last Done Comments [...] diabetes mellitus (GDM) in third trimester- Primary documented in this encounter Care Teams Data Analytics Developer Relationship Specialty Start Date End Date Nika Avery CRNP [address] [place] [address] PCP - General Nurse Practitioner 09/19/21 documented as of this encounter
--- OUTSIDE RECORDS SUMMARY | 2023-09-30 08:27 | External Medical Summary ---
Author Name Unknown Address Unknown Organization : Laboratory Report Ordering Provider Test Date Status JANUARY HUNT 08/30/2023 12:05:54 Final Observation Date Value Abnormality Reference (Units ) Status NUMBER OF FETUSES? 08/30/2023 12:05:54 1 Final ADVANCED MATERNAL AGE? 08/30/2023 12:05:54 NO Final ABNORMAL MALACHI? 08/30/2023 12:05:54 NO Final ABNORMAL US? 08/30/2023 12:05:54 NOT GIVEN Final PERSONAL/FAM HISTORY? 08/30/2023 12:05:54 NOT GIVEN Final INTERPRETATION 08/30/2023 12:05:54 SEE BELOW Final This specimen showed an expe cted representation of
chromosome 21, 18, and 13 material. Results were
not analyzed or reported for microdeletions. See
'Limitations' below. TRISOMY 21 (T21) 08/30/2023 12:05:54 Negative Final TRISOMY 18 (T18) 08/30/2023 12:05:54 Negative Final TRISOMY 13 (T13) 08/30/2023 12:05:54 Negative Final Y CHROMOSOME 08/30/2023 12:05:54 Not detected Final Y CHR. INTERPRETATION 08/30/2023 12:05:54 SEE BELOW Final Consistent with a female fet us. SEX CHROMOSOME 08/30/2023 12:05:54 No aneuploidy Final SEX CHROMOSOME INTERP 08/30/2023 12:05:54 SEE BELOW Final No apparent abnormality was detected. See
'Limitations' below. MICRODELETION 08/30/2023 12:05:54 Opted Out Final MICRODELETION INTERP 08/30/2023 12:05:54 SEE BELOW Final Results were not analyzed or reported for
microdeletions. GESTATIONAL AGE (IN WEEKS) 08/30/2023 12:05:54 31 Final GESTATIONAL AGE (IN DAYS) 08/30/2023 12:05:54 5 Final FRACTION 08/30/2023 12:05:54 17.97% Final LABORATORY COMMENTS 08/30/2023 12:05:54 SEE BELOW Final Laboratory testing supervise d and results
monitored by Michael Guerrero, Ph.D., FAC, [facility],
[facility]. LIMITATIONS 08/30/2023 12:05:54 SEE BELOW Final QNatal(R) Advanced is a cell -free DNA screening
test that screens for increased risk of certain
chromosomal abnormalities that may cause
defects, including Trisomy 21 (Down
syndrome), Trisomy 18, Trisomy 13, and certain sex
chromosome abnormalities (i.e., 45,X, 47,XXY,
47,XXX, and 47,XYY), as well as sex. In
addition, if selected as an option, QNatal(R)
Advanced can screen for certain microdeletions
(i.e., 22q, 5p, 1p36, 15q, 11q, 8q, and 4p) that
may cause defects. This test does not assess
the risk of abnormalities such as neural
tube defects or ventral wall defects and should
not be considered in isolation from other clinical
findings and laboratory test results.
QNatal(R) Advanced has been validated in bates
pregnancies for the trisomies and sex chromosome
abnormalities listed above, as well as for
microdeletions, and for the determination of
sex. Sex chromosome aneuploidy analysis is only
performed in bates pregnancies. This screening
test has also been validated in twin pregnancies
for the trisomies listed above and for
microdeletions, but not for the sex chromosome
abnormalities due to limited data. This screening
test has not been validated in higher order
pregnancies (more than two) because limited data
is available. Sex chromosomal aneuploidy results
issued for pregnancies confirmed to be of multiple
gestations are not valid and should be
disregarded.
Microdeletion screening is limited to the
specified microdeletion regions (see
'Methodology'). The Y chromosome is analyzed for
the determination of sex. The sensitivity
and specificity of sex determination
analysis may be less than that of the Trisomy 21,
18, and 13 analysis and this determination can be
confounded by vanishing twin syndrome in
pregnancies that were originally multiple
gestation pregnancies. It should be noted that
QNatal(R) Advanced is a quantitative analysis of
maternal and placental cfDNA. As a result, the
accuracy of screening results may be affected by
the presence of chromosome abnormalities or
microdeletions that are maternal or confined
placental in origin. SPECIFICATIONS 08/30/2023 12:05:54 SEE BELOW Final Sensitivity Specificity
T21 >99.9% >99.9%
T18 >99.9% >99.9%
T13 >99.9% >99.9%
Accuracy
Y >99.9%
Performance of the QNatal Advanced
laboratory-developed test (LDT) has been
determined based on internal analytical
assessment. METHODOLOGY 08/30/2023 12:05:54 SEE BELOW Final Circulating cell-free (cf) D NA was isolated from
plasma followed by detection on a massively
parallel sequencing platform. Bioinformatic
analysis was performed to determine the
representation of chromosomes 21, 18, 13, X and Y
in circulating cell-free DNA. The representation
of sequences from the critical regions involved in
1p36 microdeletion syndrome (1p36),
Chiang-Hirschhorn syndrome (4p), Cri-du-chat
syndrome (5p), Priyanka-Giedion syndrome (8q),
Wendy syndrome (11q), Prader Willi
syndrome/Angelman syndrome (15q), and DiGeorge
syndrome (22q) is evaluated for the detection of
microdeletions if requested. Performance
characteristics refer to the analytical
performance of this screening test. This screening
test is performed pursuant to a license agreement
with [employer].
QNatal Advanced is a laboratory developed test
that has been developed and validated, pursuant to
the Clinical Laboratory Improvements Amendments of
1988 (CLIA), and as such it has not been reviewed
by FDA.
Test performed by [facility]
[address],
[place] [address]

Speeder Frame Tender: Yue Bernabe MD,PHD,SHAISTA
Test Reported by [facility],
[facility],
[address] [place], [place]
Rohit Escobedo M.D., Ph.D., Director of Laboratories
, CLIA [id number] Performing Location
--- OUTSIDE RECORDS SUMMARY | 2023-09-30 08:27 | External Medical Summary | Summary of Care ---
Author Name Unknown Organization [facility] [address] [facility] [address] Phone [phone] Care Team Providers Care Clutch Operator Name Role Phone Nika Avery Cate ECHOLS Primary Care Provider Reason for Visit * Reason Comments Outpatient Testing Encounter Details Date Type Department Care Team (Late st Contact Info) Description 09/12/2023 1:40 PM EDT Laboratory Laboratory, [facility] [address] [place] [address] [facility] [address] [place] [address] Arrived Allergies Active Allergy Reactions Criticality Noted Date Comments Penicillins Hives 09/19/2021 documented as of this encounter (statuses as of 09/12/2023) Medications Medication Sig Dispensed Refills Start Date [...] by mouth 2 times a day. Active Trustpilot Verio Flex System w/Device Kit Use to test blood sugars 4 times daily (fasting, 1 hour after breakfast, lunch, and dinner) 1 Kit 08/14/2023 Active Liveroof Chinauch Verio In Vitro Strip (Glucose Blood) Use [...] as of this encounter (statuses as of 09/12/2023) Active Problems Problem Noted Date Diagnosed Date [...] each week for MFM review; diet controlled. 08/27/20231971-EBQ-dbjsvw 09/03/20237745-IZE-pepcnxo blood sugars stable. Some post prandial elevations [...] Recommend nutrition consult with RDN (Registered Dietitian Call Out Clerk). Lifestyle changes are also indicated including optimizing [...] as of this encounter (statuses as of 09/12/2023) Resolved Problems Problem Noted Date Diagnosed Date Resolved Date History of gestational diabetes 04/11/2023 08/30/2023 documented as of this encounter (statuses as of 09/12/2023) Immunizations Name Administration Dates Next Due COVID-19 [...] money to get more. Never true 04/11/2023 [place] Depression Scale Answer Date Recorded [place] Depression Scale Total 10 04/11/2023 The thought [...] Visit Gynecology/Obstetrics Anastacio Chaudhari [address] [place] [address] Felicia Magaña CRNP [address] [place] [address] Chaudhari, Izabela Stress Tests Tanvir [address] [place] [address] Health Maintenance Due Date Last Done Comments [...] filedocumented as of this encounter Care Teams Clutch Operator Relationship Specialty Start Date End Date Nika Avery CRNP [address] [place] [address] PCP - General Nurse Practitioner 09/19/21 documented as of this encounter
--- OUTSIDE RECORDS SUMMARY | 2023-09-30 08:27 | External Medical Summary | Summary of Care ---
Author Name Unknown Organization [facility] Address [address] [place] [facility] [place] [address] Phone [phone] Care Team Providers Care Business Support Assistant Name Role Phone IvyitaliaNika Cate ECHOLS Primary Care Provider Reason for Referral * Evaluate & Treat - Unlimited Visits (Within 3 days (urgent)) - Pending Review Specialty Diagnoses / Procedures Referred By Pa t Referred To Contact Obstetrics/Gynecology / Maternal Medicine Diagnoses Poor growth affecting management of mother in third trimester, single or unspecified fetus Reyna Dee MD [address] [facility] [place] [address] Referral ID Status Reason Start Date Expiration Date Visits Requested Visits Authorized [id number] Pending Review Specialty Services Required 09/16/2023 999 [...] (Late st Contact Info) Description 09/16/2023 Telephone [place]necology[facility] [address] [facility] [place] [address] Reyna Lowe MD [address] [place] [address] [place] [address] Allergies Active Allergy Reactions Criticality [...] by mouth 2 times a day. 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 08/27/20231287-FNU-vyvgbi 09/03/20238957-LBT-zuukbdg blood sugars stable. Some post prandial elevations [...] Recommend nutrition consult with RDN (Registered Dietitian Regional Trainer). Lifestyle changes are also indicated including optimizing [...] mRNA, LNP-s, No Pre serve, 2-Dose Series (HashParade) 09/07/2021,08/17/2021 Hepatitis B Vaccine, Recombi nant, Adjuvanted, [...] money to get more. Never true 04/11/2023 [place] Depression Scale Answer Date Recorded [place] Depression Scale Total 10 04/11/2023 The thought [...] patient that she has been referred to [facility]. documented in this encounter Plan of Treatment Upcoming Encounters Date Type Department Care Team (Late st Contact Info) Description 09/20/2023 10:45 AM EDT Office Visit Gynecology/Obstetrics Anastacio Chaudhari [address] [place] [phone] Felicia Magaña CRNP [address] [place] [address] Chaudhari, Non Stress Tests Tanvir [address] [place] [address] 09/25/2023 10:45 AM EDT Office Visit Nurse Specialist Obstetrics Maternal Medicine, [place] [address] [place] [address] Emeterio Naranjo MD [address] [place] [address] 09/25/2023 10:45 AM EDT Imaging Radiology [place] [address] [place], [place] [phone] Scheduled Orders Name Type Priority Associated Diagnoses Orde r Schedule [facility] US MATERNAL 1ST FETUS Medical Imaging Routine [...] Primary documented in this encounter Care Teams Business Support Assistant Relationship Specialty Start Date End Date Nika Avery CRNP [facility] [address] [place] [address] PCP - General Nurse Practitioner 09/19/21 documented as of this encounter
--- OUTSIDE RECORDS SUMMARY | 2023-09-30 08:27 | External Medical Summary | Summary of Care ---
Author Name Unknown Organization [facility] Address [address] [facility] [place] [address] Phone [phone] Care Team Providers Care Counter Sales Representative Name Role Phone BennieNika Cate ECHOLS Primary Care Provider Encounter Details Date Type Department Care Team (Late st Contact Info) Description 09/16/2023 Telephone Gynecology/Obstetrics, [place] [address] [facility] [place] [address] Reyna Dee MD [address] [place] [address] Allergies Active Allergy Reactions Criticality [...] by mouth 2 times a day. 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 08/27/20238295-EYO-bufley 09/03/20238320-BEQ-tzbcuqt blood sugars stable. Some post prandial elevations [...] Recommend nutrition consult with RDN (Registered Dietitian Technical Supervisor). Lifestyle changes are also indicated including optimizing [...] mRNA, LNP-s, No Pre serve, 2-Dose Series (SweetSpot WiFi) 09/07/2021,08/17/2021 Hepatitis B Vaccine, Recombi nant, Adjuvanted, [...] money to get more. Never true 04/11/2023 [place] Depression Scale Answer Date Recorded [place] Depression Scale Total 10 04/11/2023 The thought [...] patient that she has been referred to [facility]. documented in this encounter Plan of Treatment Upcoming Encounters Date Type Department Care Team (Late st Contact Info) Description 09/20/2023 10:45 AM EDT Office Visit Gynecology/Obstetrics Anastacio Chaudhari [address] [place] [address] Felicia Magaña CRNP [address] [place] [address] Izabela Chaudhari Stress Tests Tanvir [address] [place] [address] 09/25/2023 10:45 AM EDT Office Visit Rubber Goods Finisher Obstetrics [facility] Medicine[place] [address] [place] [address] Emeterio Naranjo MD [address] [place] [address] 09/25/2023 10:45 AM EDT Imaging Radiology [facility] [address] [place], [place] [phone] Scheduled Orders Name Type Priority Associated Diagnoses Orde r Schedule MFM US MATERNAL 1ST FETUS Medical Imaging Routine Poor growth affecting management of mother in third trimester, single or unspecified fetus Expected: 09/16/2023, Expires: 10/16/2024 Health Maintenance Due Date Last Done Comments [...] Primary documented in this encounter Care Teams Counter Sales Representative Relationship Specialty Start Date End Date Nika Avery CRNP [address] [place] [address] PCP - General Nurse Practitioner 09/19/21 documented as of this encounter
--- OUTSIDE RECORDS SUMMARY | 2023-09-30 08:27 | External Medical Summary | Summary of Care ---
Author Name Unknown Organization [facility] Address [address] [facility] [place] [address] Phone [phone] Care Team Providers Care Prop And Effects Designer Name Role Phone BennieNika Cate ECHOLS Primary Care Provider Encounter Details Date Type Department Care Team (Late st Contact Info) Description 09/16/2023 Telephone Gynecology/Obstetrics, [place] [address] [facility] [place] [address] Reyna Dee MD [address] [place] [address] Allergies Active Allergy Reactions Criticality [...] by mouth 2 times a day. 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 08/27/20234769-SFQ-znwrhn 09/03/20233859-FLT-vxekvci blood sugars stable. Some post prandial elevations [...] Recommend nutrition consult with RDN (Registered Dietitian Tank Truck Loader). Lifestyle changes are also indicated including optimizing [...] mRNA, LNP-s, No Pre serve, 2-Dose Series (Anevia) 09/07/2021,08/17/2021 Hepatitis B Vaccine, Recombi nant, Adjuvanted, [...] money to get more. Never true 04/11/2023 [place] Depression Scale Answer Date Recorded [place] Depression Scale Total 10 04/11/2023 The thought [...] patient that she has been referred to [facility]. documented in this encounter Plan of Treatment Upcoming Encounters Date Type Department Care Team (Late st Contact Info) Description 09/20/2023 10:45 AM EDT Office Visit Gynecology/Obstetrics Anastacio Chaudhari [address] [facility] [place] [address] Felicia Magaña CRNP [address] [place] [address] Izabela Chaudhari Stress Tests Tanvir [address] [place] [address] 09/25/2023 10:45 AM EDT Office Visit Gravedigger Obstetrics [facility] Medicine[place] [address] [place] [address] Emeterio Naranjo MD [address] [place] [address] 09/25/2023 10:45 AM EDT Imaging Radiology [facility] [address] [place], [place] [phone] Scheduled Orders Name Type Priority Associated Diagnoses [...] Primary documented in this encounter Care Teams Prop And Effects Designer Relationship Specialty Start Date End Date Nika Avery CRNP [address] [place] [address] PCP - General Nurse Practitioner 09/19/21 documented as of this encounter
--- OUTSIDE RECORDS SUMMARY | 2023-09-30 08:27 | External Medical Summary | Summary of Care ---
Author Name Unknown Organization [facility] Address [address] [facility] [place] [address] Phone [phone] Care Team Providers Care Websphere Message Broker Developer Name Role Phone BennieNika Cate ECHOLS Primary Care Provider Encounter Details Date Type Department Care Team (Late st Contact Info) Description 09/16/2023 Telephone Gynecology/Obstetrics, [place] [address] [place] [address] Reyna Dee MD [address] [place] [address] Allergies Active Allergy Reactions Criticality [...] by mouth 2 times a day. 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 08/27/20230122-ZBP-ukxssi 09/03/20238384-DXJ-hmsvagk blood sugars stable. Some post prandial elevations [...] Recommend nutrition consult with RDN (Registered Dietitian Tapping Machine Operator). Lifestyle changes are also indicated including [...] mRNA, LNP-s, No Pre serve, 2-Dose Series (Wootocracy) 09/07/2021,08/17/2021 Hepatitis B Vaccine, Recombi nant, Adjuvanted, [...] money to get more. Never true 04/11/2023 [place] Depression Scale Answer Date Recorded [place] Depression Scale Total 10 04/11/2023 The thought [...] patient that she has been referred to [facility]. documented in this encounter Plan of Treatment Upcoming Encounters Date Type Department Care Team (Late st Contact Info) Description 09/20/2023 10:45 AM EDT Office Visit Gynecology/Obstetrics Anastacio Chaudhari [address] [facility] [place] [address] Felicia Magaña CRNP [address] [place] [address] Izabela Chaudhari Stress Tests Tanvir [address] [place] [address] 09/25/2023 10:45 AM EDT Office Visit Process Automation Engineer Obstetrics [place] MedicineAmy [place] [address] [place] [address] Emeterio Naranjo MD [address] [place] [address] 09/25/2023 10:45 AM EDT Imaging Radiology [facility] [address] [place], [place] [phone] Scheduled Orders Name Type Priority Associated Diagnoses [...] Primary documented in this encounter Care Teams Websphere Message Broker Developer Relationship Specialty Start Date End Date Nika Avery CRNP [address] [place] [address] PCP - General Nurse Practitioner 09/19/21 documented as of this encounter
--- OUTSIDE RECORDS SUMMARY | 2023-09-30 08:27 | External Medical Summary | Summary of Care ---
Author Name Unknown Organization [facility] Address [address] [place] [address] Phone [phone] Care Team Providers Care Academic Advisor Name Role Phone Nika Avery Cate ECHOLS Primary Care Provider Encounter Details Date Type Department Care Team (Late st Contact Info) Description 08/20/2023 Telephone Director Of Business Operations Obstetrics Maternal Medicine, [place] [address] [place], [place] [phone] [place], Nurse Director Of Business Operations [facility] [address] [place] [address] Allergies Active Allergy Reactions Criticality Noted Date Comments Penicillins Hives 09/19/2021 documented as of this encounter (statuses as of 08/21/2023) Medications Medication Sig Dispensed Refills Start Date [...] by mouth 2 times a day. Active Re5ult Flex System w/Device Kit Use to test blood sugars 4 times daily (fasting, 1 hour after breakfast, lunch, and dinner) 1 Kit 08/14/2023 Active iNest RealtyTouch Verio In Vitro Strip (Glucose Blood) Use to test blood sugars 4 times daily (fasting, 1 hour after breakfast, lunch, and dinner) 125 Strip 6 08/14/2023 Active iNest RealtyTouch Delica Lancets 30G Use to test blood sugars 4 times daily (fasting, 1 hour after breakfast, lunch, and dinner) 200 Each 6 08/14/2023 Active Iron-Vitamin C 65-125 MG Oral Tablet (Vitron C) Take 1 Tablet by mouth in the morning. 90 Tablet 1 08/15/2023 Active documented as of this encounter (statuses as of 08/21/2023) Active Problems Problem Noted Date Diagnosed Date Anemia during in third trimester 08/14 Gestational diabetes mellitus (GDM) in third tri mester 08/14/2023 Overview: Diagnosed at 30 weeks Nutrition referral ordered OneTouch Verio meter ordered Lab Results Component Value Date/Time 50-G GESTATIONAL [...] A1C - [facility] 5.2 09/19/2021 10:48 AM Encounter for supervision of other normal , unspecified trimester 04/11/2023 Last Assessment & Plan: 07/29/2023 Tdap Vaccine administered per clinic protocol. Pt given VIS(vaccine information sheet) Rosemarie Womack LPN History of gestational diabetes 04/11/2023 Anxiety during 04/11/2023 Overview: Stopped lexapro just prior to +HPT. Not interested in restarting Tobacco smoking complicating 4 Overview: Down to less than 1/2ppd at NOB. Hoping to quit. Dysplasia of cervix, low grade (CHANELLE 1) [...] as of this encounter (statuses as of 08/21/2023) Immunizations Name Administration Dates Next Due COVID-19 mRNA, LNP-s, No Pre serve, 2-Dose Series ([employer]) 09/07/2021,08/17/2021 Hepatitis B Vaccine, Recombi nant, Adjuvanted, [...] money to get more. Never true 04/11/2023 [place] Depression Scale Answer Date Recorded [place] Depression Scale Total 10 04/11/2023 The thought [...] encounter Miscellaneous Notes * Telephone Encounter - Sandi Mueller OSA - 08/21/2023 3:57 PM EDT Spoke with Lalita. Appointment scheduled. Patient aware of date, time and location of Maternal Medicine appointment. * Telephone Encounter - Sandi Mueller OSA - 08/21/2023 8:42 AM EDT Phone call to patient. Left message on [employer] voice mail. Encouraged patient to return call to [facility] to assist with scheduling. * Telephone Encounter - Roxi Cardenas OSA - 08/20/2023 8:03 AM EDT Phone call to patient. Left message on [employer] voice mail. Encouraged patient to return call to [facility] to assist with scheduling. * Telephone Encounter - Roxi Cardenas OSA - 08/20/2023 8:02 AM EDT ----- Message from Aida Quiroga sent at 08/19/2023 5:25 PM EDT ----- Regarding: no show ADAPT Patient no showed to ADAPT consult visit. Please assist patient with rescheduling 45 minute ADAPT visit. Thanks! Aida documented in this encounter Plan of Treatment Upcoming Encounters Date Type Department Care Team (Late st Contact Info) Description 08/23/2023 1:45 PM EDT Telemedicine Director Of Business Operations Obstetrics Maternal Medicine, [place] [address] [facility] [address] [place] [address] Albino Siegel CRNP [address] [facility] [address] [place] [address] 08/29/2023 1:00 PM EDT Imaging [facility] [address] [place] [phone] 08/30/2023 11:15 AM EDT Office Visit Gynecology/Obstetrics [facility] [address] [address] Latrice Cardozo CRNP [address] [place] [address] Nurse [facility] [place] [address] [place] [address] Health Maintenance Due Date Last Done Comments [...] filedocumented as of this encounter Care Teams Academic Advisor Relationship Specialty Start Date End Date Nika Avery CRNP [address] [address] PCP - General Nurse Practitioner 09/19/21 documented as of this encounter
--- OUTSIDE RECORDS SUMMARY | 2023-09-30 08:27 | External Medical Summary | Summary of Care ---
Author Name Unknown Organization [facility] Address [address] [facility] [place] [address] Phone [phone] Care Team Providers Care Terminal Computer Operator Name Role Phone Nika Avery Cate ECHOLS Primary Care Provider Reason for Visit * Reason Comments Outpatient Testing Encounter Details Date Type Department Care Team (Late st Contact Info) Description 08/30/2023 12:10 PM EDT Laboratory Laboratory, [facility] [address] [place] [address] [facility] [address] [place] [address] Encounter for supervision of other normal in third trimester Allergies Active Allergy Reactions Criticality Noted Date Comments Penicillins Hives 09/19/2021 documented as of this encounter (statuses as of 08/30/2023) Medications Medication Sig Dispensed Refills Start Date [...] by mouth 2 times a day. 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 08/27/20233785-MQE-mercmk Last Assessment & Plan: CONSIDERATIONS: Reviewed etiology [...] Recommend nutrition consult with RDN (Registered Dietitian Forming Roll Operator). Lifestyle changes are also indicated including [...] as of this encounter (statuses as of 08/30/2023) Resolved Problems Problem Noted Date Diagnosed Date Resolved Date History of gestational diabetes 04/11/2023 08/30/2023 documented as of this encounter (statuses as of 08/30/2023) Immunizations Name Administration Dates Next Due COVID-19 [...] money to get more. Never true 04/11/2023 [place] Depression Scale Answer Date Recorded [place] Depression Scale Total 10 04/11/2023 The thought [...] Care Team (Late st Contact Info) Description 09/11/2023 2:30 PM EDT Telemedicine Nutrition Services, [place] [address] [phone] Aniyah Cardoza RDN [address] [address] 09/12/2023 10:45 AM EDT Imaging Radiology [facility] [address] [facility] [place] [address] 09/12/2023 11:45 AM EDT Office Visit Gynecology/Obstetrics [facility] [address] [place] [address] Reyna Dee MD [address] [place] [address] [place] [id number] Pending Results Name Type Priority Associated Diagnoses Date /Time QNATAL ADVANCED (QUEST) Lab Routine Encounter for supervision of other normal in third trimester 08/30/2023 12:05 PM EDT Health Maintenance Due Date Last Done Comments [...] supervision of other normal in third trimester documented in this encounter Care Teams Terminal Computer Operator Relationship Specialty Start Date End Date Nika Avery CRNP [address] [place] [place] [address] PCP - General Nurse Practitioner 09/19/21 documented as of this encounter
--- OUTSIDE RECORDS SUMMARY | 2023-09-30 08:27 | External Medical Summary | Summary of Care ---
Author Name Unknown Organization [facility] Address [address] [place] [address] Phone [phone] Care Team Providers Care Fishing Line Winding Machine Operator Name Role Phone Nika Avery Cate ECHOLS Primary Care Provider Reason for Visit * Reason Comments Return Visit Encounter Details Date Type Department Care Team (Late st Contact Info) Description 09/12/2023 11:45 AM EDT Office Visit Gynecology/Obstetric [facility] [address] [facility] [place] [address] Reyna Dee MD [address] [facility] [place] [address] Poor growth affecting management of mother in third trimester, single or unspecified fetus*; Diet controlled gestational diabetes mellitus (GDM) in third trimester; Anxiety during ; Tobacco smoking affecting in third trimester; 34 weeks gestation of ; Anemia during in third trimester Allergies Active Allergy Reactions Criticality Noted Date Comments Penicillins Hives 09/19/2021 documented as of this encounter (statuses as of 09/14/2023) Medications Medication Sig Dispensed Refills Start Date [...] by mouth 2 times a day. 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 08/27/20238961-XHU-cgetbg 09/03/20239325-EWG-abrimkb blood sugars stable. Some post prandial elevations [...] Recommend nutrition consult with RDN (Registered Dietitian Application Internship). Lifestyle changes are also indicated including optimizing [...] as of this encounter (statuses as of 09/14/2023) Resolved Problems Problem Noted Date Diagnosed Date Resolved Date History of gestational diabetes 04/11/2023 08/30/2023 documented as of this encounter (statuses as of 09/14/2023) Immunizations Name Administration Dates Next Due COVID-19 mRNA, LNP-s, No Pre serve, 2-Dose Series (iwi) 09/07/2021,08/17/2021 Hepatitis B Vaccine, Recombi nant, Adjuvanted, [...] money to get more. Never true 04/11/2023 [place] Depression Scale Answer Date Recorded [place] Depression Scale Total 10 04/11/2023 The thought [...] Sign Reading Time Taken Comments Blood Pressure 114/72 09/12/2023 11:37 AM EDT Pulse - - Temperature - - Respiratory Rate - - Oxygen Saturation - - Inhaled Oxygen Concentration - - Weight 80.6 kg (177 lb 9.6 oz) 09/12/2023 11:37 AM EDT Height 163.8 cm (5' 4.5") 09/12/2023 11:37 AM ED T Body Mass Index 30.01 09/12/2023 11:37 AM EDT documented in this encounter Progress Notes * Reyna Dee MD - 09/12/2023 12:01 PM EDT Lalita Pritchard is a 28 year old female here for her routine OB appointment at 34w4d Her Estimated Date of Delivery: 10/20/23 REVIEW OF SYSTEMS: She affirms movement. Denies vaginal bleeding, LOF, contractions, N/V, headaches [place] Depression Scale: No data recorded [place] suicide question and score: Score of 3 = Yes, quite often. Score of 2 = Sometimes. Score of 1 = Hardly ever No data recorded ASSESSMENT assessment with Non-stress Test completed on 09/12/2023 at 34 weeks 4 days gestation for indication of growr heart baseline: 145 bpm Variability: Moderate Decelerations: absent Accelerations: present Contractions: Present uterineirritability NST start time: 1142 am NST stop time: 1204 pm NST strip reviewed, interpreted, and approved by OB provider, Dr. Dee. NST strip stored in clinic storage file PHYSICAL EXAM: Filed Vitals: 09/12/23 1137 Weight: 80.6 kg (177 lb 9.6 oz) Height: 1.638 m (5' 4.5") +FHT 145 Fundal height 33 cm ASSESSMENT/PLAN: (O24.410) Diet controlled gestational diabetes mellitus (GDM) in third trimester Plan: Patient will continue management with ADAPT. (O99.340, F41.9) Anxiety during Plan: Patient states mood is stable. (O99.333) Tobacco smoking affecting in third trimester Plan: Smoking cessation was done. (O99.013) Anemia during in third trimester Plan: Patient will continue oral iron supplementation. (O36.5930) Poor growth affecting management of mother in third trimester, single or unspecified fetus Plan: Head is small for age. Borderline small abdominal circumference. EFW:1996 g, 6%. Patient has been referred to [facility] NST was reactive. (Z3A.34) 34 weeks gestation of (primary encounter diagnosis) Plan: - labor precautions and kick counts reviewed - RTO in 1 week Reyna Dee MD documented in this encounter Nursing Notes * Norma Javier LPN - 09/12/2023 11:37 AM EDT 34w4d Growth today dt GDM dx. Growth 6%, POLO 6.9cm documented in this encounter Miscellaneous Notes * Result Encounter Note - Aniyah Olsen RN - 09/13/2023 11:45 AM EDT MyG typed and sent. * Result Encounter Note - eRyna Dee MD - 09/13/2023 10:41 AM EDT Please kindly inform patient that she is still anemic. Patient is to continue taking her Vitron C. documented in this encounter Plan of Treatment Upcoming Encounters Date Type Department Care Team (Late st Contact Info) Description 09/20/2023 10:45 AM EDT Office Visit Gynecology/Obstetrics [facility] [address] [place] [place] [address] Felicia Magaña CRNP [address] [place] [address] [facility] [address] [place] [address] Scheduled Orders Name Type Priority Associated Diagnoses Orde r Schedule MFM US MATERNAL 1ST FETUS Medical Imaging Routine Poor growth affecting management of mother in third trimester, single or unspecified fetus Expected: 09/12/2023, Expires: 10/12/2024 Health Maintenance Due Date Last Done Comments [...] Not on filedocumented as of this encounter Procedures Procedure Name Priority Date/Time Associated Diagnosis Comments CBC Routine 09/12/2023 12:53 PM EDT Anemia during in third trimester documented in this encounter Results * (ABNORMAL) CBC (09/12/2023 12:53 PM EDT) WBC 9.51 4.00 - 10.80 K/uL 09/12/2023 1:19 PM EDT [facility] RBC 3.45 3.85 - 5.15 M/uL 09/12/2023 1:19 PM EDT [facility] HGB 11.0(L) 12.0 - 15.3 g/dL 09/12/2023 1:19 PM EDT [facility] HCT 33.3(L) 36.0 - 45.2 % 09/12/2023 1:19 PM EDT [facility]10 MCV 96.5 81.5 - 97.5 fL 09/12/2023 1:19 PM EDT [facility]10 MCH 31.9 27.0 - 34.0 pg 09/12/2023 1:19 PM EDT [facility]10 MCHC 33.0 32.0 - 36.0 g/dL 09/12/2023 1:19 PM EDT [facility]10 RDW 13.4 11.5 - 15.5 % 09/12/2023 1:19 PM EDT [facility]10 PLT 216 140 - 400 K/uL 09/12/2023 1:19 PM EDT [facility] MPV 9.6 6.6 - 11.1 fL 09/12/2023 1:19 PM EDT [facility]10 Blood Venous blood specimen / Unknown Venipuncture / Unknown 09/12/2023 12:53 PM EDT 09/12/2023 12:53 PM EDT Reyna Keturah Dee MD LAB BLOOD ORD ERABLES [facility]10 [address] [place] [address] documented in this encounter Visit Diagnoses Diagnosis Poor growth affecting management of mother in third trimester, single or unspecified fetus- Primary Diet controlled gestational diabetes mellitus (GDM) in third trimester Anxiety during Tobacco smoking affecting in third trimester 34 weeks gestation of state, incidental Anemia during in third trimester documented in this encounter Care Teams Fishing Line Winding Machine Operator Relationship Specialty Start Date End Date Nika Avery CRNP [address] [place] [address] PCP - General Nurse Practitioner 09/19/21 documented as of this encounter
--- OUTSIDE RECORDS SUMMARY | 2023-09-30 08:27 | External Medical Summary | Summary of Care ---
Author Name Unknown Organization [facility] Address [address] [place] [address] Phone [phone] Care Team Providers Care Glass Pulverizer Equipment Operator Name Role Phone Nika Avery Cate ECHOLS Primary Care Provider Encounter Details Date Type Department Care Team (Late st Contact Info) Description 08/20/2023 Telephone Fuel Dock Attendant Obstetrics Maternal Medicine, [place] [address] [place], [place] [phone] [place], Nurse Fuel Dock Attendant [facility] [address] [place] [address] Allergies Active Allergy Reactions Criticality [...] by mouth 2 times a day. Active Hippo Manager Software Flex System w/Device Kit Use to test blood sugars 4 times daily (fasting, 1 hour after breakfast, lunch, and dinner) 1 Kit 08/14/2023 Active Dorsey Wright and AssociatesTouch Verio In Vitro Strip (Glucose Blood) Use to test blood sugars 4 times daily (fasting, 1 hour after breakfast, lunch, and dinner) 125 Strip 6 08/14/2023 Active Dorsey Wright and AssociatesTouch Delica Lancets 30G Use to test blood [...] mRNA, LNP-s, No Pre serve, 2-Dose Series ([employer]) 09/07/2021,08/17/2021 Hepatitis B Vaccine, Recombi nant, Adjuvanted, [...] money to get more. Never true 04/11/2023 [place] Depression Scale Answer Date Recorded [place] Depression Scale Total 10 04/11/2023 The thought [...] Phone call to patient. Left message on [employer] voice mail. Encouraged patient to return call to [facility] to assist with scheduling. * Telephone Encounter - Roxi Cardenas OSA - 08/20/2023 8:03 AM EDT Phone call to patient. Left message on [employer] voice mail. Encouraged patient to return call to [facility] to assist with scheduling. * Telephone [...] Maternal Medicine Imaging, [facility] [address] [place] [phone] 08/30/2023 11:15 AM EDT Office Visit Gynecology/Obstetrics [facility] [address] [place] [address] [place], KINZA Cross [address] [place] [address] Nurse [facility] [address] [place] [address] Health Maintenance Due Date Last Done Comments Depression Monitoring 2006 COVID-19 Vaccine (2022- season) 2022 09/07/2021, 08/17/2021 Influenza Vaccine (FLU [...] filedocumented as of this encounter Care Teams Glass Pulverizer Equipment Operator Relationship Specialty Start Date End Date Nika Avery CRNP [address] [place] [place] [address] PCP - General Nurse Practitioner 09/19/21 documented as of this encounter
--- OUTSIDE RECORDS SUMMARY | 2023-09-30 08:27 | External Medical Summary | Summary of Care ---
Author Name Unknown Organization [facility] Address [address] [place] [address] Phone [phone] Care Team Providers Care Leather Coater Name Role Phone Nika Avery Cate ECHOLS Primary Care Provider Encounter Details Date Type Department Care Team (Late st Contact Info) Description 08/20/2023 Telephone Dental Appliance Fixer Obstetrics Maternal Medicine, [place] [address] [place], [place] [phone] [place], Nurse Dental Appliance Fixer [facility] [address] [place] [address] Allergies Active Allergy Reactions Criticality Noted Date Comments Penicillins Hives 09/19/2021 documented as of this encounter (statuses as of 08/20/2023) Medications Medication Sig Dispensed Refills Start Date [...] by mouth 2 times a day. Active [employer] Motor Flex System w/Device Kit Use to test blood sugars 4 times daily (fasting, 1 hour after breakfast, lunch, and dinner) 1 Kit 08/14/2023 Active dentalDoctorsuch Verio In Vitro Strip (Glucose Blood) Use to test blood sugars 4 times daily (fasting, 1 hour after breakfast, lunch, and dinner) 125 Strip 6 08/14/2023 Active AmedrixTouch Delica Lancets 30G Use to test blood sugars 4 times daily (fasting, 1 hour after breakfast, lunch, and dinner) 200 Each 6 08/14/2023 Active Iron-Vitamin C 65-125 MG Oral Tablet (Vitron C) Take 1 Tablet by mouth in the morning. 90 Tablet 1 08/15/2023 Active documented as of this encounter (statuses as of 08/20/2023) Active Problems Problem Noted Date Diagnosed Date [...] as of this encounter (statuses as of 08/20/2023) Immunizations Name Administration Dates Next Due COVID-19 mRNA, LNP-s, No Pre serve, 2-Dose Series ([employer]) 09/07/2021,08/17/2021 Hepatitis B Vaccine, Recombi nant, Adjuvanted, [...] money to get more. Never true 04/11/2023 [place] Depression Scale Answer Date Recorded [place] Depression Scale Total 10 04/11/2023 The thought [...] Phone call to patient. Left message on [employer] voice mail. Encouraged patient to return call to [facility] to assist with scheduling. * Telephone [...] 08/29/2023 1:00 PM EDT Imaging Maternal Medicine [place], [facility] [address] [place] [phone] 08/30/2023 11:15 AM EDT Office Visit Gynecology/Obstetrics [facility] [address] [place] [place] [address] [place], KINZA Cross [address] [place] [address] Nurse [facility] [place] [address] [place] [address] Health Maintenance Due Date Last Done Comments [...] filedocumented as of this encounter Care Teams Leather Coater Relationship Specialty Start Date End Date Nika Avery CRNP [address] [address] PCP - General Nurse Practitioner 09/19/21 documented as of this encounter
--- OUTSIDE RECORDS SUMMARY | 2023-09-30 08:27 | External Medical Summary | Summary of Care ---
Author Name Unknown Organization [facility] Address [address] [facility] [place] [address] Phone [phone] Care Team Providers Care Banking Representative Name Role Phone BennieNika Cate ECHOLS Primary Care Provider Reason for Visit * Reason Comments Healthy Beginnings Return Encounter Details Date Type Department Care Team (Late st Contact Info) Description 08/30/2023 11:15 AM EDT Office Visit Gynecology/Obstetri kiley Chaudhari [address] [facility] [place] [address] Latrice Cardozo CRNP [address] [place] [address] Nurse Watson [facility]nings Return Tanvir [address] [place] [address] Encounter for supervision of other normal , unspecified trimester*; Anxiety during ; Tobacco smoking affecting in third trimester; Diet controlled gestational diabetes mellitus (GDM) in [...] by mouth 2 times a day. 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 08/27/20235926-[id number]-vhiayt Last Assessment & Plan: CONSIDERATIONS: Reviewed etiology [...] Recommend nutrition consult with RDN (Registered Dietitian Senior Training Specialist). Lifestyle changes are also indicated including optimizing [...] money to get more. Never true 04/11/2023 [place] Depression Scale Answer Date Recorded [place] Depression Scale Total 10 04/11/2023 The thought [...] Sign Reading Time Taken Comments Blood Pressure 122/66 08/30/2023 11:16 AM EDT Pulse - - Temperature - - Respiratory Rate - - Oxygen Saturation - - Inhaled Oxygen Concentration - - Weight 80.3 kg (177 lb) 08/30/2023 11:16 AM EDT Height 163.8 cm (5' 4.5") 08/30/2023 11:16 AM ED T Body Mass Index 29.91 08/30/2023 11:16 AM EDT documented in this encounter Progress Notes * Latrice Cardozo CRNP - 08/30/2023 11:44 AM EDT 32w5d Good movement. No leaking, bleeding, ctx. Working with ADAPT for GDM. Had to cancel MFM u/s. Would prefer to have growth scan locally, ordered. Taking iron, plan to recheck CBC next visit. She wishes to have Qnatal drawn today. 2 week return KINZA Bang documented in this encounter Nursing Notes * Norma Javier LPN - 08/30/2023 11:21 AM EDT 32w5d Denies concerns Has to reschedule mfm US documented in this encounter Plan of Treatment Upcoming Encounters Date Type Department Care Team (Late st Contact Info) Description 08/30/2023 12:10 PM EDT Laboratory Laboratory, [facility] [address] [facility] [place] [phone] [facility] [address] [facility] [place] [address] Encounter for supervision of other normal in third trimester 09/11/2023 2:30 PM EDT Telemedicine Nutrition Services, [place] [address] [facility] [place] [id number] Aniyah Cardoza RDN [address] [facility] [place] [address] 09/12/2023 10:45 AM EDT Imaging Radiology [facility] [address] [facility] [place] [address] 09/12/2023 11:45 AM EDT Office Visit Gynecology/Obstetric s Anastacio [facility] [address] [facility] [place] [address] Reyna Dee MD [address] [place] [address] [place] [address] Scheduled Orders Name Type Priority Associated Diagnoses Orde r Schedule US PREG FOLLOW-UP EACH FETUS Medical Imaging Routine Encounter for supervision of other normal , unspecified trimester Diet controlled gestational diabetes mellitus (GDM) in third trimester Expected: 08/30/2023 (Approximate), Expires: 09/29/2024 Health Maintenance Due Date Last Done Comments [...] Diagnosis Encounter for supervision of other normal , unspecified trimester- Primary Anxiety during Tobacco smoking affecting in third trimester Diet controlled gestational diabetes mellitus (GDM) in third trimester Anemia during in third trimester Encounter for supervision of other normal in third trimester documented in this encounter Care Teams Banking Representative Relationship Specialty Start Date End Date Nika Avery CRNP [address] [place] [address] PCP - General Nurse Practitioner 09/19/21 documented as of this encounter
--- OUTSIDE RECORDS SUMMARY | 2023-09-30 08:27 | External Medical Summary | Summary of Care ---
Author Name Unknown Organization [facility] Address [address] [place] [address] Phone [phone] Care Team Providers Care Hardware Test Engineer Name Role Phone Nika Avery Cate ECHOLS Primary Care Provider Encounter Details Date Type Department Care Team (Late st Contact Info) Description 08/20/2023 Telephone Selenium Plant Operator Obstetrics Maternal Medicine, [place] [address] [place], [place] [phone] [place], Nurse Selenium Plant Operator [facility] [address] [place] [address] Allergies Active Allergy Reactions Criticality [...] by mouth 2 times a day. Active rPath Flex System w/Device Kit Use to test blood sugars 4 times daily (fasting, 1 hour after breakfast, lunch, and dinner) 1 Kit 08/14/2023 Active ACS Clothinguch Verio In Vitro Strip (Glucose Blood) Use to test blood sugars 4 times daily (fasting, 1 hour after breakfast, lunch, and dinner) 125 Strip 6 08/14/2023 Active Wealth AccessTouch Delica Lancets 30G Use to test blood [...] mRNA, LNP-s, No Pre serve, 2-Dose Series (Conisus) 09/07/2021,08/17/2021 Hepatitis B Vaccine, Recombi nant, Adjuvanted, [...] to get more. Never true 04/11/2023 [place] Depression Scale Answer Date Recorded [place] Depression Scale Total 10 04/11/2023 The thought [...] Phone call to patient. Left message on [employer]'s voice mail. Encouraged patient to return call to [facility] to assist with scheduling. * Telephone [...] Julianna, Tanvir Chaudhari [address] [place] [phone] 08/30/2023 11:15 AM EDT Office Visit Gynecology/Obstetrics Anastacio Chaudhari [address] [place] [address] [place], KINZA Cross [address] [place] [address] Nurse Watson [facility] Return Tanvir [address] [place] [address] Health Maintenance Due Date Last Done Comments [...] filedocumented as of this encounter Care Teams Hardware Test Engineer Relationship Specialty Start Date End Date Nika Avery CRNP [address] [place] [address] PCP - General Nurse Practitioner 09/19/21 documented as of this encounter
--- OUTSIDE RECORDS SUMMARY | 2023-09-30 08:27 | External Medical Summary ---
Author Name Unknown Address Unknown Organization [id number][facility] [address] [place] [address] Laboratory Report Ordering Provider Test Date Status ASHOK,KOLADE 09/12/2023 12:53:28 Final Observation Date Value Abnormality Reference (Units ) Status WBC, Total 09/12/2023 12:53:28 9.51 4.00-10.8 0 (K/uL) Final RBC 09/12/2023 12:53:28 3.45 3.85-5.15 (M/uL) Final Hemoglobin 09/12/2023 12:53:28 11.0 Below low normal 12 .0-15.3 (g/dL) Final HCT 09/12/2023 12:53:28 33.3 Below low normal 36. 0-45.2 (%) Final MCV 09/12/2023 12:53:28 96.5 81.5-97.5 (fL) Final MCH 09/12/2023 12:53:28 31.9 27.0-34.0 (pg) Final MCHC 09/12/2023 12:53:28 33.0 32.0-36.0 (g/dL) Final RDW 09/12/2023 12:53:28 13.4 11.5-15.5 (%) Final Platelets 09/12/2023 12:53:28 216 140-400 (K /uL) Final MPV 09/12/2023 12:53:28 9.6 6.6-11.1 ( fL) Final Performing Location [facility] 0 - [address] [place] [address]
--- OUTSIDE RECORDS SUMMARY | 2023-09-30 08:28 | External Medical Summary ---
Author Name Unknown Address Unknown Organization [id number]:LABORATORY [facility] - [facility] [address] [place] [address] Laboratory Report Ordering Provider Test Date Status ANH MERINO 08/14/2023 09:57:00 Final Observation Date Value Abnormality Reference (Units ) Status WBC, Total 08/14/2023 09:57:00 11.60 Above high normal 4 .00-10.80 (K/uL) Final RBC 08/14/2023 09:57:00 3.53 3.85-5.15 (M/uL) Final Hemoglobin 08/14/2023 09:57:00 11.4 Below low normal 12 .0-15.3 (g/dL) Final Anemia reflex testing trigge rs on a HGB < 12.0 for Females and HGB < 13.0 for Males in accordance with the WHO Anemia Guidelines
Anemia reflex testing triggers on a HGB < 12.0 for Females and HGB < 13.0 for Males in accordance with the WHO Anemia Guidelines HCT 08/14/2023 09:57:00 34.0 Below low normal 36. 0-45.2 (%) Final MCV 08/14/2023 09:57:00 96.3 81.5-97.5 (fL) Final MCH 08/14/2023 09:57:00 32.3 27.0-34.0 (pg) Final MCHC 08/14/2023 09:57:00 33.5 32.0-36.0 (g/dL) Final RDW 08/14/2023 09:57:00 12.9 11.5-15.5 (%) Final Platelets 08/14/2023 09:57:00 230 140-400 (K /uL) Final MPV 08/14/2023 09:57:00 10.3 6.6-11.1 ( fL) Final Nucleated erythrocytes/100 leukocytes [Ratio] in Blood by Automated count 08/14/2023 09:57:00 0 <=0 (/100 WBCs) Final Performing Location LABORATORY [facility] - [address] [facility] [address]
--- OUTSIDE RECORDS SUMMARY | 2023-09-30 08:28 | External Medical Summary ---
Author Name Unknown Address Unknown Organization [id number]:LABORATORY [place] [address] [facility] [address] [facility] [place] [address] Laboratory Report Ordering Provider Test Date Status ANGELIQUEKAMARA 08/14/2023 09:57:00 Final Observation Date Value Abnormality Reference (Units ) Status Retic, % (auto) 08/14/2023 09:57:00 2.19 Above high normal 0.80-1.90 (%) Final Reticulocytes, Absolute 08/14/2023 09:57:00 75.8 31.3-100.1 (K/uL) Final Reticulocyte fraction, immature 08/14/2023 09:57:00 19.1 2.5-20.6 (%) Final Reticulocyte HGB 08/14/2023 09:57:00 35.7 29.7-37.4 (pg) Final Performing Location LAB[facility] [place] [address] [address] [facility] [place] [address]
--- OUTSIDE RECORDS SUMMARY | 2023-09-30 08:28 | External Medical Summary | Summary of Care ---
Author Name Unknown Organization [facility] Address [address] [place] [address] Phone [phone] Care Team Providers Care Director Of Nuclear Medicine Name Role Phone Nika Avery Cate ECHOLS Primary Care Provider Reason for Visit * Reason Onset Date Comments Referral 08/14/2023 Encounter Details Date Type Department Care Team (Late st Contact Info) Description 08/14/2023 Telephone Lamp Replacer Obstetrics Maternal Medicine, [place] [address] [place], [place] [phone] [place], Nurse Lamp Replacer [facility] [address] [place], [place] [phone] Referral Allergies Active Allergy Reactions Criticality Noted Date Comments Penicillins Hives 09/19/2021 documented as of this encounter (statuses as of 08/14/2023) Medications Medication Sig Dispensed Refills Start Date [...] by mouth 2 times a day. Active Vol[employer] Systems Verio Flex System w/Device Kit Use to test blood sugars 4 times daily (fasting, 1 hour after breakfast, lunch, and dinner) 1 Kit 08/14/2023 Active DealitLive.comTouch Verio In Vitro Strip (Glucose Blood) Use to test blood sugars 4 times daily (fasting, 1 hour after breakfast, lunch, and dinner) 125 Strip 6 08/14/2023 Active OneTouch Delica Lancets 30G Use to test blood sugars 4 times daily (fasting, 1 hour after breakfast, lunch, and dinner) 200 Each 6 08/14/2023 Active documented as of this encounter (statuses as of 08/14/2023) Active Problems Problem Noted Date Diagnosed Date Gestational diabetes mellitus (GDM) in third tri mester 08/14/2023 Encounter for supervision of other normal , [...] as of this encounter (statuses as of 08/14/2023) Immunizations Name Administration Dates Next Due COVID-19 mRNA, LNP-s, No Pre serve, 2-Dose Series (Eyeonix) 09/07/2021,08/17/2021 Hepatitis B Vaccine, Recombi nant, Adjuvanted, [...] money to get more. Never true 04/11/2023 [place] Depression Scale Answer Date Recorded [place] Depression Scale Total 10 04/11/2023 The thought [...] Telephone Encounter - Roxi Cardenas OSA - 08/14/2023 3:55 PM EDT Phone call to patient. Left message on [employer]'s voice mail. Encouraged patient to return call to [facility] to assist with scheduling. * Telephone Encounter - Jordyn Leigh CCMA - 08/14/2023 3:35 PM EDT Estimated Date of Delivery: 10/20/23 Please schedule for 45 MINUTE ADAPT WITH SENIOR APPLICATIONS ENGINEER, in time frame of within 1 week at location [facility] with the indication of GDM. Please schedule anatomy within 2-3 weeks. Referring Provider: Germaine De Santiago PA-C documented in this encounter Plan of Treatment Upcoming Encounters Date Type Department Care Team (Late st Contact Info) Description 08/30/2023 11:15 AM EDT Office Visit Gynecology/Obstetrics [facility] [address] [place] [address] Latrice Cardozo CRNP [address] [place] [address] Nurse Watson [facility] Return Tanvir [address] [place] [address] Health Maintenance Due Date Last Done Comments [...] filedocumented as of this encounter Care Teams Director Of Nuclear Medicine Relationship Specialty Start Date End Date Nika Avery CRNP [address] [place] [address] PCP - General Nurse Practitioner 09/19/21 documented as of this encounter
--- OUTSIDE RECORDS SUMMARY | 2023-09-30 08:28 | External Medical Summary | Summary of Care ---
Author Name Unknown Organization [facility] Address [address] [place] [address] Phone [phone] Care Team Providers Care Estimator Lumber Name Role Phone Nika Avery Cate ECHOLS Primary Care Provider Reason for Visit * Reason Comments Outpatient Testing Encounter Details Date Type Department Care Team (Late st Contact Info) Description 08/14/2023 8:30 AM EDT Laboratory Laboratory, [facility] [address] [place] [address] [facility] [address] [place] [address] Arrived Allergies Active Allergy Reactions Criticality Noted [...] the skin daily. 28 Patch 07/29/2023 Active documented as of this encounter (statuses as of 08/14/2023) Active Problems Problem Noted Date Diagnosed Date Encounter for supervision of other normal , [...] mRNA, LNP-s, No Pre serve, 2-Dose Series (Livestream) 09/07/2021,08/17/2021 Hepatitis B Vaccine, Recombi nant, Adjuvanted, [...] money to get more. Never true 04/11/2023 [place] Depression Scale Answer Date Recorded [place] Depression Scale Total 10 04/11/2023 The thought [...] Visit Gynecology/Obstetrics Anastacio Chaudhari [address] [place] [address] Latrice Cardozo CRNP [address] [place] [address] Nurse Watson [facility] Return Tanvir [address] [place] [address] Health Maintenance Due Date Last Done Comments [...] filedocumented as of this encounter Care Teams Estimator Lumber Relationship Specialty Start Date End Date Nika Avery CRNP [address] [place] [address] PCP - General Nurse Practitioner 09/19/21 documented as of this encounter
--- OUTSIDE RECORDS SUMMARY | 2023-09-30 08:28 | External Medical Summary | Summary of Care ---
Author Name Unknown Organization [facility] Address [address] [facility] [place] [address] Phone [phone] Care Team Providers Care Examination Scorer Name Role Phone Nika Avery Cate ECHOLS Primary Care Provider Reason for Visit * Reason Comments Return Visit Encounter Details Date Type Department Care Team (Late st Contact Info) Description 08/14/2023 10:45 AM EDT Office Visit Gynecology/Obstetric s Anastacio Chaudhari [address] [place] [address] Felicia Magaña CRNP [address] [place] [address] Encounter for supervision of other normal , unspecified trimester*; History of gestational diabetes; Anxiety during Allergies Active Allergy Reactions Criticality Noted Date [...] by mouth 2 times a day. Active documented as of this encounter (statuses [...] mRNA, LNP-s, No Pre serve, 2-Dose Series (Amazing [employer] Letters) 09/07/2021,08/17/2021 Hepatitis B Vaccine, Recombi nant, Adjuvanted, [...] money to get more. Never true 04/11/2023 [place] Depression Scale Answer Date Recorded [place] Depression Scale Total 10 04/11/2023 The thought [...] Sign Reading Time Taken Comments Blood Pressure 102/64 08/14/2023 10:26 AM EDT Pulse - - Temperature - - Respiratory Rate - - Oxygen Saturation - - Inhaled Oxygen Concentration - - Weight 81.2 kg (179 lb) 08/14/2023 10:26 AM EDT Height 163.8 cm (5' 4.5") 08/14/2023 10:26 AM ED T Body Mass Index 30.25 08/14/2023 10:26 AM EDT documented in this encounter Progress Notes * Felicia Magaña CRNP - 08/14/2023 11:01 AM EDT 30w3d No concerns. Baby is active. No contractions, bleeding, LOF. Completing 3hr GTT today. KINZA Macedo * Lizz [place] LPN - 08/14/2023 10:26 AM EDT 30w3d Doing 3gtt today documented in this encounter Plan of Treatment Upcoming Encounters Date Type Department Care Team (Late st Contact Info) Description 08/30/2023 11:15 AM EDT Office Visit Gynecology/Obstetrics Anastacio Chaudhari [address] [place] [address] Latrice Cardozo CRNP [address] [place] [address] Nurse Watson [facility] Return Tanvir [address] [place] [address] Health Maintenance Due Date Last Done Comments [...] of other normal , unspecified trimester- Primary History of gestational diabetes Personal history of gestational diabetes Anxiety during documented in this encounter Care Teams Examination Scorer Relationship Specialty Start Date End Date Nika Avery CRNP [address] [place] [address] PCP - General Nurse Practitioner 09/19/21 documented as of this encounter
--- OUTSIDE RECORDS SUMMARY | 2023-09-30 08:28 | External Medical Summary | Summary of Care ---
Author Name Unknown Organization [facility] Address [address] [place] [address] Phone [phone] Care Team Providers Care Back Roll Lathe Operator Name Role Phone Nika Averylouie ECHOLS Primary Care Provider Encounter Details Date Type Department Care Team (Late st Contact Info) Description 08/15/2023 Telephone [facility] Gynecology and Obstetrics [address] [place] [address] Aide Mallory CNM [address] [place] [address] Allergies Active Allergy Reactions Criticality Noted Date Comments Penicillins Hives 09/19/2021 documented as of this encounter (statuses as of 08/16/2023) Medications Medication Sig Dispensed Refills Start Date [...] by mouth 2 times a day. Active WhitetruffleTouch Verio Flex System w/Device Kit Use to test blood sugars 4 times daily (fasting, 1 hour after breakfast, lunch, and dinner) 1 Kit 08/14/2023 Active WhitetruffleTouch Verio In Vitro Strip (Glucose Blood) Use [...] as of this encounter (statuses as of 08/16/2023) Active Problems Problem Noted Date Diagnosed Date [...] as of this encounter (statuses as of 08/16/2023) Immunizations Name Administration Dates Next Due COVID-19 mRNA, LNP-s, No Pre serve, 2-Dose Series ([employer]) 09/07/2021,08/17/2021 Hepatitis B Vaccine, Recombi nant, Adjuvanted, [...] Date Smoking Tobacco: Former Cigarettes 1 10 - 2021 Smokeless Tobacco: Never Alcohol Use [...] money to get more. Never true 04/11/2023 [place] Depression Scale Answer Date Recorded [place] Depression Scale Total 10 04/11/2023 The thought [...] encounter Miscellaneous Notes * Telephone Encounter - Shavon Tavera RN - 08/16/2023 8:49 AM EDT Attempted to call patient. No answer, LVM to return call. * Telephone Encounter - Aide Mallory CNM - 08/15/2023 1:37 PM EDT Please let patient know her blood counts are slightly low at 11.4, goal is 12. Recommend she start vitron C Daily. Sent to her pharmacy but can also get OTC. Please ensure she is taking this at least 3 hours away from any sources of calcium. It is best taken on an empty stomach with vitamin C, if she is able. This can cause dark stools and/or constipation. If she experiences constipation, she can use Colace for relief. Plan to recheck her labs for improvement in 4 weeks. Thank you! Aide Mallory CNM documented in this encounter Plan of Treatment Upcoming Encounters Date Type Department Care Team (Late st Contact Info) Description 08/30/2023 11:15 AM EDT Office Visit Gynecology/Obstetrics Anastacio Chaudhari [address] [place] [address] Latrice Cardozo CRNP [address] [place] [address] Nurse Watson [facility] Return Tanvir [address] [place] [address] Health Maintenance Due Date Last Done Comments [...] filedocumented as of this encounter Care Teams Back Roll Lathe Operator Relationship Specialty Start Date End Date Nika Avery CRNP [address] [place] [address] PCP - General Nurse Practitioner 09/19/21 documented as of this encounter
--- OUTSIDE RECORDS SUMMARY | 2023-09-30 08:28 | External Medical Summary ---
Author Name Unknown Address Unknown Organization K01:LABORATORY [facility] - [address] [facility] [place] [address] Laboratory Report Ordering Provider Test Date Status ANH MERINO 08/14/2023 09:57:00 Final Observation Date Value Abnormality Reference (Units ) Status Treponema pallidum Ab [Presence] in Serum by Immunoassay 08/14/2023 09:57:00 Nonreactive Nonreactive Final No serologic evidence of syp hilis. No additional testing clinicially indicated at this time. Consider repeat testing in 2-4 weeks if acute or primary syphilis is suspected. Performing Location LABORATORY [facility] - [address] [place] [address]
--- OUTSIDE RECORDS SUMMARY | 2023-09-30 08:28 | External Medical Summary | Summary of Care ---
Author Name Unknown Organization [facility] Address [address] [place] [address] Phone [phone] Care Team Providers Care Meat Stuffer Name Role Phone Nika Averylle KINZA Primary Care Provider Reason for Visit * Reason Onset Date Comments Test Results 08/14/2023 Encounter Details Date Type Department Care Team (Late st Contact Info) Description 08/14/2023 Telephone Gynecology/Obstetrics [facility] [address] [facility] [place] [address] Lia Wray, CHENG [address] [facility] [place] [address] Test Results Allergies Active Allergy Reactions Criticality Noted Date [...] by mouth 2 times a day. Active VisibleGains Verio Flex System w/Device Kit Use to test blood sugars 4 times daily (fasting, 1 hour after breakfast, lunch, and dinner) 1 Kit 08/14/2023 Active Dial2DoTouch Verio In Vitro Strip (Glucose Blood) Use [...] mRNA, LNP-s, No Pre serve, 2-Dose Series ([place] Cryotherapy) 09/07/2021,08/17/2021 Hepatitis B Vaccine, Recombi nant, Adjuvanted, [...] money to get more. Never true 04/11/2023 Hudson Depression Scale Answer Date Recorded Hudson Depression Scale Total 10 04/11/2023 The thought [...] encounter Miscellaneous Notes * Telephone Encounter - Norma Javier LPN - 08/14/2023 4:00 PM EDT left message for patient to call office * Telephone Encounter - Jovanny Bills RN - 08/14/2023 3:57 PM EDT ----- Message from Germaine De Santiago sent at 08/14/2023 3:24 PM EDT ----- Addressing for Lia- Please let patient know her 3 hour GTT was elevated enough to be diagnostic of gestational diabetes. I have placed orders for supplies for her to start monitoring her blood glucose levels. We recommended monitoring 4x/day. Once in the morning upon awakening and prior to anything to eat/drink. This level should be <95. The other 3 checks should be 1 hour after the first bite of each meal and should be <140. [address] referrals to [facility] for GDM monitoring/follow-up. documented in this encounter Plan of Treatment Upcoming Encounters Date Type Department Care Team (Late st Contact Info) Description 08/30/2023 11:15 AM EDT Office Visit Gynecology/Obstetrics Anastacio Chaudhari [address] [place] [address] Latrice Cardozo CRNP [address] [place] [address] Nurse [facility] Tanvir [address] [place] [address] Health Maintenance Due Date Last Done Comments [...] filedocumented as of this encounter Care Teams Meat Stuffer Relationship Specialty Start Date End Date Nika Avery CRNP [address] [place] [address] PCP - General Nurse Practitioner 09/19/21 documented as of this encounter
--- OUTSIDE RECORDS SUMMARY | 2023-09-30 08:28 | External Medical Summary | Summary of Care ---
Author Name Unknown Organization [facility] Address [address] [place] [address] Phone [phone] Care Team Providers Care Die Keeper Name Role Phone Nika Avery Primary Care Provider Reason for Visit * Reason Onset Date Comments Advice 04/03/2023 Encounter Details Date Type Department Care Team (Late st Contact Info) Description 04/03/2023 Telephone Family Practice [facility] [address] [place] [address] Nika Avery CRNP [address] [place] [address] Advice Allergies Active Allergy Reactions Criticality Noted Date Comments Penicillins Hives 09/19/2021 documented as of this encounter (statuses as of 07/03/2023) Medications Medication Sig Dispensed Refills Start Date End Date Status metroNIDAZOLE 500 MG Oral Tablet (Flagyl) Take 1 Tablet by mouth in the morning and 1 Tablet before bedtime. X 7 days until gone.. 14 Tablet 01/22/2023 Active Escitalopram Oxalate 10 MG Oral Tablet (Lexapro) Take 1 Tablet by mouth in the morning. 30 Tablet 02/12/2023 Active documented as of this encounter (statuses as of 07/03/2023) Active Problems Problem Noted Date Diagnosed Date Encounter for supervision of other normal , unspecified trimester 04/11/2023 History of gestational diabetes 04/11/2023 Anxiety during [...] Grief reaction 09/19/2021 Well adult exam 09/19/2021 documented as of this encounter (statuses as of 07/03/2023) Immunizations Name Administration Dates Next Due COVID-19 mRNA, LNP-s, No Pre serve, 2-Dose Series (Hiptype) 09/07/2021,08/17/2021 Hepatitis B Vaccine, Recombi nant, Adjuvanted, 20 mcg/mL (Heplisav-B) 09/17/2022,08/15/2022 Hepatitis B, 0-19 yrs 02/20/1995,1994,04/12 MMR - Measles/Mumps/Rubella Vaccine 06/08/1998,0 08/14/1995 Seasonal Influenza Virus Vac cine, Unspecified Formulation 11/15/2021 Seasonal Influenza, PF, 6 M & above, IM , (FluLaval or Fluzone) 11/15/2021 TDAP (age 10 and older)(Boostrix) 03/27/2017 Varicella Vaccine (Chicken Pox) 09/25/2007,11/25 documented as of this encounter Social History Tobacco Use Types Packs/Day Years Used Date Smoking Tobacco: Former Cigarettes 1 10 2 - 2021 Smokeless Tobacco: Never Alcohol Use [...] money to get more. Never true 04/11/2023 [place] Depression Scale Answer Date Recorded [place] Depression Scale Total 10 04/11/2023 The thought of harming myself has occurred to me . Never 04/11/2023 Sex and Gender Information Value Date Recorded Sex Assigned at Female 04/11/2023 2:33 PM EST Gender Identity Female 04/11/2023 2:33 PM EST Sexual Orientation Straight 04/11/2023 2: 33 PM EST Job Start Date Occupation Industry Not on file Not on file Not on file documented as of this encounter Miscellaneous Notes * Telephone Encounter - Rox Renee MED ASSIST - 04/19/2023 7:43 AM EST Letter was completed and faxed and sent via private email as well. * Telephone Encounter - Rox Renee MED ASSIST - 04/03/2023 12:41 PM EST Spoke to Nika, unsure why cannot see letter. However approved and printed for her to sign. * Telephone Encounter - Nika Avery CRNP - 04/03/2023 12:32 PM EST Agree but where is letter? Thanks Lane, MSN, KINZA [facility][note 3] * Telephone Encounter - Rox Renee MED ASSIST - 04/03/2023 12:20 PM EST Letter pended if agreeable. Called and spoke to Jane -- she needs a letter stating patients TB negative and signed by ordering provider. Also would like the results sent to her as well. Please fax to [phone]. Jane did provide her email as well if can send a secure email instead: [email or web address] * Telephone Encounter - Claudine Mattson OSA - 04/03/2023 11:07 AM EST Jane form staffing agency looking for confirmation that patient received TB testing at [facility] on03/29 or additional information. Please advise. Did give verbal. documented in this encounter Plan of Treatment Upcoming Encounters Date Type Department Care Team (Late st Contact Info) Description 07/29/2023 1:30 PM EDT Office Visit Gynecology/Obstetrics Anastacio Chaudhari [address] [place] [address] Lia Wray CN [address] [facility] [place] [address] Nurse [facility] Tanvir [address] [place] [address] Health Maintenance Due Date Last Done Comments COVID-19 Vaccine (2022- season) 2022 09/07/2021, 08/17/2021 Pap Smear 12/03/2025 12/03/2022 DTaP,Tdap,and Td Vaccines (2 - Td or Tdap) 03/27/2027 03/27/2017 Hepatitis B Completed 09/17/2022, 07/0 06/2022, 02/20/1995, Additional history exists Influenza Vaccine (FLU shot) Completed , 11/15/2021, 11/15/2021 GARDASIL-HPV IMMUNIZATION SERIES Aged Out No longer eligible based on [...] filedocumented as of this encounter Care Teams Die Keeper Relationship Specialty Start Date End Date Nika Avery CRNP [address] [place] [address] PCP - General Nurse Practitioner 09/19/21 documented as of this encounter
--- OUTSIDE RECORDS SUMMARY | 2023-09-30 08:28 | External Medical Summary ---
Author Name Unknown Address Unknown Organization [id number]:LABORATORY [facility] [place] - [address] [place] [address] Laboratory Report Ordering Provider Test Date Status ANH MERINO 08/14/2023 09:57:00 Final Observation Date Value Abnormality Reference (Units ) Status TSH 08/14/2023 09:57:00 0.74 0.27-4.20 (uIU/mL) Final Performing Location LAB[facility]ATORY C - [address] [facility] [place] [address]
--- OUTSIDE RECORDS SUMMARY | 2023-09-30 08:28 | External Medical Summary ---
Author Name Unknown Address Unknown Organization [id number]:LABORATORY [facility] [place] - [address] [place] [address] Laboratory Report Ordering Provider Test Date Status ANH MERINO 08/14/2023 09:57:00 Final Observation Date Value Abnormality Reference (Units ) Status SYNC LEUKOCYTES IN BLOOD BY AUTOMATED COUNT 08/14/2023 09:57:00 11.60 Above high normal 4.00-10.80 (K/uL) Final Segs 08/14/2023 09:57:00 77.1 Above high normal 40.0-75.0 (%) Final Lymphs % 08/14/2023 09:57:00 15.0 Below low normal 18.0-42.0 (%) Final Monos 08/14/2023 09:57:00 5.7 1.0-11.0 (%) Final Eosinophils 08/14/2023 09:57:00 1.1 0.0-6.0 (%) Final Basos 08/14/2023 09:57:00 0.3 0.0-2.0 (%) Final Immature Granulocyte, Percent 08/14/2023 09:57:00 0.8 0.0-2.0 (%) Final Absolute Segs 08/14/2023 09:57:00 8.95 Above high normal 1.80-7.70 (K/uL) Final Lymphs, absolute 08/14/2023 09:57:00 1.74 1.00-4.80 (K/ul) Final Monos, Abs 08/14/2023 09:57:00 0.66 0.00-1.10 (K/uL) Final Eos, Abs 08/14/2023 09:57:00 0.13 0.00-0.70 (K/uL) Final Basos, Abs 08/14/2023 09:57:00 0.03 0.00-0.20 (K/uL) Final Immature Granulocytes, Number 08/14/2023 09:57:00 0.09 0.00-0.20 (K/uL) Final Performing Location LABORATORY [facility] [place] - [address] [facility] [address]
--- OUTSIDE RECORDS SUMMARY | 2023-09-30 08:28 | External Medical Summary ---
Author Name Unknown Address Unknown Organization [id number]:[facility]ORY [facility] [place] - [facility] [address] [place] [address] Laboratory Report Ordering Provider Test Date Status ANH MERINO 08/14/2023 09:57:00 Final Observation Date Value Abnormality Reference (Units ) Status Creatinine 08/14/2023 09:57:00 0.5 0.5-1.0 (mg/dL) Final Glomerular filtration rate/1.73 sq M.predicted [Volume Rate/Area] in Serum, Plasma or Blood by Creatinine-based formula (CKD-EPI) 08/14/2023 09:57:00 >90 >=60 (mL/min) Final eGFR is calculated based on the CKD-EPI 2020 equation Performing Location LAB[facility] [place] [facility] [address] [place] [address]
--- OUTSIDE RECORDS SUMMARY | 2023-09-30 08:28 | External Medical Summary ---
Author Name Unknown Address Unknown Organization [id number]:LABORATORY [facility] [place] [address] - [address] [place] [address] Laboratory Report Ordering Provider Test Date Status ANH MERINO 08/14/2023 12:03:22 Final Observation Date Value Abnormality Reference (Units ) Status Glucose, 2-hr post glucose challenge 08/14/2023 12:03:22 186 Above high normal 70-154 (mg/dL) Final Performing Location LABORATORY [facility] [place] 57[address] 0 - [address] [place] [address]
--- OUTSIDE RECORDS SUMMARY | 2023-09-30 08:28 | External Medical Summary ---
Author Name Unknown Address Unknown Organization [id number]:LABORATORY [place] [address] - [address] [place] [address] Laboratory Report Ordering Provider Test Date Status ANH MERINO 08/14/2023 09:57:00 Final Based on ACOG guideline, ges tational diabetes mellitus is diagnosed when any of the following is met:
Fasting is greater than or equal to 95 mg/dL
1 hour is greater than or equal to 180 mg/dL
2 hour is greater than or equal to 155 mg/dL
3 hour is greater than or equal to 140 mg/dL Observation Date Value Abnormality Reference (Units ) Status Glucose, fasting 08/14/2023 09:57:00 83 70- 94 (mg/dL) Final Performing Location LABORATORY [facility] [place] [address] 0 - [address] [place] [address]
--- OUTSIDE RECORDS SUMMARY | 2023-09-30 08:28 | External Medical Summary | Summary of Care ---
Author Name Unknown Organization [facility] Address [address] [place] [address] Phone [phone] Care Team Providers Care Support Coordinator Name Role Phone Nika Averylouie ECHOLS Primary Care Provider Encounter Details Date Type Department Care Team (Late st Contact Info) Description 08/15/2023 Telephone [facility] Gynecology and Obstetrics [address] [place] [address] Aide Mallory CNM [address] [place] [address] Allergies Active Allergy Reactions Criticality [...] by mouth 2 times a day. Active LearnUponTouch Verio Flex System w/Device Kit Use to test blood sugars 4 times daily (fasting, 1 hour after breakfast, lunch, and dinner) 1 Kit 08/14/2023 Active LearnUponTouch Verio In Vitro Strip (Glucose Blood) Use [...] mRNA, LNP-s, No Pre serve, 2-Dose Series ([email or web address]) 09/07/2021,08/17/2021 Hepatitis B Vaccine, Recombi nant, Adjuvanted, [...] money to get more. Never true 04/11/2023 [place] Depression Scale Answer Date Recorded [place] Depression Scale Total 10 04/11/2023 The thought [...] encounter Miscellaneous Notes * Telephone Encounter - Lizz [place] LPN - 08/16/2023 9:33 AM EDT Spoke with pt she verbalized understanding * Telephone Encounter - Shavon Tavera RN [...] Care Team (Late st Contact Info) Description 08/19/2023 1:45 PM EDT Telemedicine Hand Miter Operator Obstetrics [facility], [place] [address] [address] Aida Quiroga CRNP [address] [place] [address] 08/29/2023 1:00 PM EDT Imaging Maternal [facility] Imaging, [place] Chaudhari [address] [place] [phone] 08/30/2023 11:15 AM EDT Office Visit Gynecology/Obstetrics Anastacio Reillys [address] [place] [address] BackerLatrice CRNP [address] [place] [address] Nurse [facility] Tanvir [address] [place] [address] Health Maintenance Due Date Last Done Comments Depression Monitoring 2006 COVID-19 Vaccine ( - season) 2022 09/07/2021, 08/17/2021 Influenza Vaccine [...] filedocumented as of this encounter Care Teams Support Coordinator Relationship Specialty Start Date End Date Nika Avery CRNP [address] [place] [address] PCP - General Nurse Practitioner 09/19/21 documented as of this encounter
--- OUTSIDE RECORDS SUMMARY | 2023-09-30 08:28 | External Medical Summary ---
Author Name Unknown Address Unknown Organization [id number]:LABORATORY [facility] [place] - [address] [place] [address] Laboratory Report Ordering Provider Test Date Status ANH MERINO 08/14/2023 09:57:00 Final Observation Date Value Abnormality Reference (Units ) Status Ferritin 08/14/2023 09:57:00 30 13-150 (ng /mL) Final Performing Location LABORATORY [facility] [place] - [address] [place] [address]
--- OUTSIDE RECORDS SUMMARY | 2023-09-30 08:28 | External Medical Summary | Summary of Care ---
Author Name Unknown Organization [facility] Address [address] [place] [address] Phone [phone] Care Team Providers Care Exceptional Children Teacher Name Role Phone Nika Averylle KINZA Primary Care Provider Reason for Visit * Reason Comments [facility] Return Encounter Details Date Type Department Care Team (Late st Contact Info) Description 07/29/2023 1:30 PM EDT Office Visit Gynecology/Obstetri kiley Chaudhari [address] [place] [address] Lia Wray, [facility] [address] [place] [address] Nurse Watson [facility] Return Tanvir 132 [facility] [place] [address] Encounter for supervision of other normal , unspecified trimester*; History of gestational diabetes; Anxiety during ; Tobacco smoking affecting in third trimester Allergies Active Allergy Reactions Criticality Noted Date Comments Penicillins Hives 09/19/2021 documented as of this encounter (statuses as of 07/29/2023) Medications Medication Sig Dispensed Refills Start Date End Date Status 28-0.8 MG Oral Tablet Take by mouth. Active Breast Pump Use as directed 1 Each 07/29/2023 Active Nicotine 14 MG/24HR Transdermal Patch 24 Hour (Nicoderm CQ) Place 1 Patch over 24 hours topically on the skin daily. 28 Patch 07/29/2023 Active metroNIDAZOLE 500 MG Oral Tablet (Flagyl) Take 1 Tablet by mouth in the morning and 1 Tablet before bedtime. X 7 days until gone.. 14 Tablet 01/22/2023 4 Discontinued Escitalopram Oxalate 10 MG Oral Tablet (Lexapro) Take 1 Tablet by mouth in the morning. 30 Tablet 02/12/2023 4 Discontinued documented as of this encounter (statuses as of 07/29/2023) Active Problems Problem Noted Date Diagnosed Date [...] as of this encounter (statuses as of 07/29/2023) Immunizations Name Administration Dates Next Due COVID-19 mRNA, LNP-s, No Pre serve, 2-Dose Series (IguanaFix) 09/07/2021,08/17/2021 Hepatitis B Vaccine, Recombi nant, Adjuvanted, [...] money to get more. Never true 04/11/2023 P[place] Depression Scale Answer Date Recorded [place] Depression Scale Total 10 04/11/2023 The thought of harming myself has occurred to me . Never 04/11/2023 Estimated Date of Delivery Comme nts [...] Reading Time Taken Comments Blood Pressure 100/64 07/29/2023 1:53 PM EDT Pulse - - Temperature - - Respiratory Rate - - Oxygen Saturation - - Inhaled Oxygen Concentration - - Weight 75.7 kg (166 lb 12.8 oz) 07/29/2023 1:53 PM EDT Height - - Body Mass Index 28.19 06/12/2023 1:28 PM EDT documented in this encounter Progress Notes * Lia Wray CNM - 07/29/2023 2:00 PM EDT Lalita Pritchard is a 28 year old female here for her routine OB appointment at 28w1d Her Estimated Date of Delivery: 10/20/23 REVIEW OF SYSTEMS: She affirms movement but only feels "flutters" and has not done a kick count. Denies vaginal bleeding, LOF, contractions, N/V, headaches, vision changes, and RUQ pain. PHYSICAL EXAM: Filed Vitals: 07/29/23 1353 BP: 100/64 Weight: 75.7 kg (166 lb 12.8 oz) +FHT 140-150bpm Fundal height: 30cm ASSESSMENT/PLAN: (Z86.32) History of gestational diabetes Plan: -Encouraged patient to schedule 3 hour GTT as soon as possible; patient agreeable (O99.340, F41.9) Anxiety during Plan: -Stopped Lexapro just prior to (about 3 weeks) -Feels well and not interested in restarting medications (O99.330) Tobacco smoking complicating Plan: -Smoking 1/2 PPD tobacco; desires to quit -Rx for nicotine patches -Reviewed risks of tobacco in including anemia, small for gestational age baby, placenta previa, and placental abruption (Z34.80) Encounter for supervision of other normal , unspecified trimester (primary encounter diagnosis) Plan: GESTATIONAL GLUCOSE TOLERANCE, 3 HOUR, TDAP (AGE 10 AND OLDER)(BOOSTRIX) - TDAP vaccine given today - planning to complete CBC, 3 hour GTT, and syphilis screen as soon as possible - she was given prescription for a breast pump - is undecided for contraception - rhogam npt needed d/t A+ blood type - labor precautions and kick counts reviewed in detail; encouraged 1-2 times daily kick counts and patient to call if <10 movements in 2 hours - RTO in 2 weeks Lia Wray CNM * Jess Ji, MED ASSIST - 07/29/2023 1:53 PM EDT 28w1d Denies vaginal bleeding/mary + movement Agreeable to TDAP today Declines HB No new concerns documented in this encounter Nursing Notes * Rosemarie Womack LPN - 07/29/2023 2:13 PM EDT 07/29/2023 Tdap Vaccine administered per clinic protocol. Pt given VIS(vaccine information sheet) Rosemarie Womack LPN documented in this encounter Miscellaneous Notes * Assessment & Plan Note - Rosemarie Womack LPN - 07/29/2023 2:13 PM EDT Associated Problem(s): Encounter for supervision of other normal , unspecified trimester 07/29/2023 Tdap Vaccine administered per clinic protocol. Pt given VIS(vaccine information sheet) Rosemarie Womack LPN documented in this encounter Plan of Treatment Upcoming Encounters Date Type Department Care Team (Late st Contact Info) Description 08/14/2023 8:30 AM EDT Laboratory Laboratory, [facility] [address] [place] [phone] [facility] Anh [facility] [address] [place] [address] 08/14/2023 10:45 AM EDT Office Visit Gynecology/Obstetrics [facility] [address] [place] [address] Felicia Magaña CRNP [address] [place] [address] Scheduled Orders Name Type Priority Associated Diagnoses Orde r Schedule GESTATIONAL GLUCOSE TOLERANCE, 3 HOUR Lab Routine Encounter for supervision of other normal , unspecified trimester Expected: 07/29/2023 (Approximate), Expires: 07/28/2024 SYPHILIS ANTIBODY SCREEN WITH REFLEX TO RPR Lab Routine Encounter for supervision of other normal , unspecified trimester Expected: 07/29/2023, Expires: 07/28/2024 CBC WITH WBC DIFFERENTIAL AND ANEMIA REFLEX WORKUP Lab Routine Encounter for supervision of other normal , unspecified trimester Expected: 07/29/2023, Expires: 07/28/2024 Health Maintenance Due Date Last Done Comments Depression Monitoring 2006 COVID-19 Vaccine (3 - season) 2022 09/07/2021, 08/17/2021 Pap Smear 12/03/2025 12/03/2022 DTaP,Tdap,and Td Vaccines (3 - Td or Tdap) 07/28/2033 07/29/2023, 03/27/2017 Hepatitis B Completed 09/17/2022, 0706/2022, 02/20/1995, Additional history exists Influenza Vaccine (FLU [...] Personal history of gestational diabetes Anxiety during Tobacco smoking affecting in third trimester documented in this encounter Care Teams Exceptional Children Teacher Relationship Specialty Start Date End Date Nika Avery CRNP [address] [place] [address] PCP - General Nurse Practitioner 09/19/21 documented as of this encounter
--- OUTSIDE RECORDS SUMMARY | 2023-09-30 08:28 | External Medical Summary ---
Author Name Unknown Address Unknown Organization [id number]:LABORATORY [facility] [place] - [address] [place] [address] Laboratory Report Ordering Provider Test Date Status ANH MERINO 08/14/2023 09:57:00 Final Observation Date Value Abnormality Reference (Units ) Status Vitamin B12 08/14/2023 09:57:00 [phone] (pg/mL) Final Performing Location LABORATORY [facility] [place] [facility] [address] [facility] [address] [place] [place] [address]
--- OUTSIDE RECORDS SUMMARY | 2023-09-30 08:28 | External Medical Summary ---
Author Name Unknown Address Unknown Organization [id number]:LABORATORY [facility] [place] - [address] [place] [address] Laboratory Report Ordering Provider Test Date Status ANH MERINO 08/14/2023 09:57:00 Final Observation Date Value Abnormality Reference (Units ) Status Iron 08/14/2023 09:57:00 112 33-151 (ug/dL) Final Iron-binding capacity 08/14/2023 09:57:00 437 Above high normal 250-425 (ug/dL) Final Transferrin Sat % 08/14/2023 09:57:00 26 15-55 (%) Final Performing Location LABORATORY [facility] [place] - [address] [place] [address]
--- OUTSIDE RECORDS SUMMARY | 2023-09-30 08:28 | External Medical Summary | Summary of Care ---
Author Name Unknown Organization [facility] Address [address] [place] [address] Phone [phone] Care Team Providers Care Jewel Bearing Maker Name Role Phone Nika Avery Cate ECHOLS Primary Care Provider Reason for Visit * Reason Onset Date Comments Referral 08/14/2023 Encounter Details Date Type Department Care Team (Late st Contact Info) Description 08/14/2023 Telephone Green Building Architect Obstetrics Maternal Medicine, [place] [address] [place], [place] [phone] [place], Nurse Green Building Architect [facility] [address] [place], [place] [id number] Referral Allergies Active Allergy Reactions Criticality Noted [...] by mouth 2 times a day. Active Issue Verio Flex System w/Device Kit Use to test blood sugars 4 times daily (fasting, 1 hour after breakfast, lunch, and dinner) 1 Kit 08/14/2023 Active Giner Electrochemical SystemsTouch Verio In Vitro Strip (Glucose Blood) Use [...] mRNA, LNP-s, No Pre serve, 2-Dose Series (InboxQ) 09/07/2021,08/17/2021 Hepatitis B Vaccine, Recombi nant, Adjuvanted, [...] money to get more. Never true 04/11/2023 Guttenberg Depression Scale Answer Date Recorded Guttenberg Depression Scale Total 10 04/11/2023 The thought [...] Telephone Encounter - Roxi Cardenas OSA - 08/16/2023 9:29 AM EDT Spoke with Lalita. Appointment scheduled. Patient aware of date, time and location of Maternal Medicine appointment. * Telephone Encounter - Roxi Cardenas OSA - 08/14/2023 3:55 PM EDT Phone call to patient. Left message on Lalita's voice mail. Encouraged patient to return call to [facility] to assist with scheduling. * Telephone Encounter - Jordyn Leigh CCMA - 08/14/2023 3:35 PM EDT Estimated Date of Delivery: 10/20/23 Please schedule for 45 MINUTE ADAPT WITH [employer], in time frame of within 1 week at location [facility] with the indication of GDM. Please schedule anatomy within 2-3 weeks. Referring Provider: Germaine De Santiago PA-C documented in this encounter Plan of Treatment Upcoming Encounters Date Type Department Care Team (Late st Contact Info) Description 08/19/2023 1:45 PM EDT Telemedicine Green Building Architect Obstetrics Maternal Medicine, [place] [address] [facility] [address] [place] [address] Aida Quiroga CRNP [address] [place] [address] 08/29/2023 1:00 PM EDT Imaging Maternal Medicine Imaging, [place] Chaudhari [address] [place] [phone] 08/30/2023 11:15 AM EDT Office Visit Gynecology/Obstetrics [facility]aud[facility] [address] [place] [address] Latrice Cardozo CRNP [address] [place] [address] Nurse [facility] [place] [address] [place] [address] Health Maintenance Due Date Last Done Comments [...] filedocumented as of this encounter Care Teams Jewel Bearing Maker Relationship Specialty Start Date End Date Nika Avery CRNP [address] [place] [address] PCP - General Nurse Practitioner 09/19/21 documented as of this encounter
--- OUTSIDE RECORDS SUMMARY | 2023-09-30 08:28 | External Medical Summary ---
Author Name Unknown Address Unknown Organization [id number]:LAB[facility]ATORY [facility] [address] - [address] [place] [address] Laboratory Report Ordering Provider Test Date Status ANH MERINO 08/14/2023 13:02:03 Final Observation Date Value Abnormality Reference (Units ) Status Glucose [Mass/volume] in Serum or Plasma --3 hours post dose glucose 08/14/2023 13:02:03 89 70-139 (mg/dL) Final Performing Location LABORATORY [facility] [address] 0 - [address] [place] [address]
--- OUTSIDE RECORDS SUMMARY | 2023-09-30 08:28 | External Medical Summary ---
Author Name Unknown Address Unknown Organization [id number]:LABORATORY [facility] [address] - [address] [place] [address] Laboratory Report Ordering Provider Test Date Status ANH MERINO 08/14/2023 11:02:47 Final Observation Date Value Abnormality Reference (Units ) Status Glucose [Mass/volume] in Serum or Plasma --1 hour post dose glucose 08/14/2023 11:02:47 204 Above high normal 70-179 (mg/dL) Final Performing Location LABORATORY [facility] 57[address] - [address] [place] [address]
--- OUTSIDE RECORDS SUMMARY | 2023-09-30 08:28 | External Medical Summary | Summary of Care ---
Author Name Unknown Organization [facility] Address [address] [place] [address] Phone [phone] Care Team Providers Care Medical Payment Poster Name Role Phone Nika Averylle KINZA Primary Care Provider Reason for Visit * Reason Onset Date Comments Test Results 08/14/2023 Encounter Details Date Type Department Care Team (Late st Contact Info) Description 08/14/2023 Telephone Gynecology/Obstetrics [facility] [address] [facility] [place] [address] Lia Wray, CHENG [address] [place] [address] Test Results Allergies Active Allergy [...] by mouth 2 times a day. Active [employer] Verio Flex System w/Device Kit Use to test blood sugars 4 times daily (fasting, 1 hour after breakfast, lunch, and dinner) 1 Kit 08/14/2023 Active shopaTouch Verio In Vitro Strip (Glucose Blood) Use [...] mRNA, LNP-s, No Pre serve, 2-Dose Series (Makoondi) 09/07/2021,08/17/2021 Hepatitis B Vaccine, Recombi nant, Adjuvanted, [...] money to get more. Never true 04/11/2023 Beaver Depression Scale Answer Date Recorded Beaver Depression Scale Total 10 04/11/2023 The thought [...] Telephone Encounter - Shavon Tavera RN - 08/14/2023 4:54 PM EDT Patient called and made aware of entire message below. Patient verbalized understanding to all. * Telephone Encounter - Norma Javier LPN [...] should be <140. [address] referrals to [facility] for GDM monitoring/follow-up. documented in this encounter Plan of Treatment Upcoming Encounters Date Type Department Care Team (Late st Contact Info) Description 08/30/2023 11:15 AM EDT Office Visit Gynecology/Obstetrics Anastacio Chaudhari [address] [place] [address] Latrice Cardozo CRNP [address] [place] [address] Nurse [facility] [place] [address] [place] [address] Health Maintenance Due Date Last Done Comments [...] filedocumented as of this encounter Care Teams Medical Payment Poster Relationship Specialty Start Date End Date Nika Avery CRNP [address] [place] [address] PCP - General Nurse Practitioner 09/19/21 documented as of this encounter
--- OUTSIDE RECORDS SUMMARY | 2023-09-30 08:29 | External Medical Summary ---
Author Name Unknown Address Unknown Organization [id number]:LABORATORY [facility] - [facility] [address] [place] [address] Laboratory Report Ordering Provider Test Date Status JANUARY HUNT 04/11/2023 15:10:03 Final Observation Date Value Abnormality Reference (Units ) Status WBC, Total 04/11/2023 15:10:03 7.99 4.00-10.8 0 (K/uL) Final RBC 04/11/2023 15:10:03 3.85 3.85-5.15 (M/uL) Final Hemoglobin 04/11/2023 15:10:03 12.3 12.0-15.3 (g/dL) Final Anemia reflex testing trigge rs on a HGB < 12.0 for Females and HGB < 13.0 for Males in accordance with the WHO Anemia Guidelines
Anemia reflex testing triggers on a HGB < 12.0 for Females and HGB < 13.0 for Males in accordance with the WHO Anemia Guidelines HCT 04/11/2023 15:10:03 35.9 Below low normal 36. 0-45.2 (%) Final MCV 04/11/2023 15:10:03 93.2 81.5-97.5 (fL) Final MCH 04/11/2023 15:10:03 31.9 27.0-34.0 (pg) Final MCHC 04/11/2023 15:10:03 34.3 32.0-36.0 (g/dL) Final RDW 04/11/2023 15:10:03 12.6 11.5-15.5 (%) Final Platelets 04/11/2023 15:10:03 270 140-400 (K /uL) Final MPV 04/11/2023 15:10:03 10.1 6.6-11.1 ( fL) Final Nucleated erythrocytes/100 leukocytes [Ratio] in Blood by Automated count 04/11/2023 15:10:03 0 <=0 (/100 WBCs) Final Performing Location LABORATORY [facility] - [address] [place] [address]
--- OUTSIDE RECORDS SUMMARY | 2023-09-30 08:29 | External Medical Summary ---
Author Name Unknown Address Unknown Organization K0G:LABORATORY [facility] [address] - [address] [place] [address] Laboratory Report Ordering Provider Test Date Status JANUARY HUNT 05/10/2023 11:03:46 Final Observation Date Value Abnormality Reference (Units ) Status Glucose [Moles/volume] in Serum or Plasma --1 hour post 50 g glucose PO 05/10/2023 11:03:46 133 Above high normal 70-129 (mg/dL) Final Performing Location LABORATORY [facility] 57[address] - [address] [place] [address]
--- OUTSIDE RECORDS SUMMARY | 2023-09-30 08:29 | External Medical Summary ---
Author Name Unknown Address Unknown Organization [id number]:[facility]ORY [facility] [place] [address] [place] [address] [place] [address] Laboratory Report Ordering Provider Test Date Status JANUARY HUNT 04/11/2023 15:10:03 Final Observation Date Value Abnormality Reference (Units ) Status Hep B surface Ag 04/11/2023 15:10:03 Negative Neg ative Final Performing Location LAB[facility]ATORY [facility] - [address] [facility] [address]
--- OUTSIDE RECORDS SUMMARY | 2023-09-30 08:29 | External Medical Summary ---
Author Name Unknown Address Unknown Organization K0G:LABORATORY [facility] [address] - [address] [place] [address] Laboratory Report Ordering Provider Test Date Status JANUARY HUNT 05/15/2023 10:43:40 Final Observation Date Value Abnormality Reference (Units ) Status Glucose [Mass/volume] in Serum or Plasma --1 hour post dose glucose 05/15/2023 10:43:40 160 70-179 (mg/dL) Final Performing Location LABORATORY [facility] 57[address] - [address] [place] [address]
--- OUTSIDE RECORDS SUMMARY | 2023-09-30 08:29 | External Medical Summary ---
Author Name Unknown Address Unknown Organization K01:LABORATORY C - [address] [place] [address] Laboratory Report Ordering Provider Test Date Status JANUARY HUNT 04/11/2023 15:10:03 Final Observation Date Value Abnormality Reference (Units ) Status Rubella virus IgG Ab [Presence] in Serum 04/11/2023 15:10:03 Positive Abnormal Negative Final A positive result is consist ent with having had rubella virus or vaccination. Performing Location [facility] [place] [address] [place] [address]
--- OUTSIDE RECORDS SUMMARY | 2023-09-30 08:29 | External Medical Summary ---
Author Name Unknown Address Unknown Organization K01:[facility] [place] [address] [place] [address] Laboratory Report Ordering Provider Test Date Status JANUARY HUNT 04/11/2023 15:10:03 Final Observation Date Value Abnormality Reference (Units ) Status Treponema pallidum Ab [Presence] in Serum by Immunoassay 04/11/2023 15:10:03 Nonreactive Nonreactive Final No serologic evidence of syp hilis. No additional testing clinicially indicated at this time. Consider repeat testing in 2-4 weeks if acute or primary syphilis is suspected. Performing Location [facility] [place] [address] [place] [address]
--- OUTSIDE RECORDS SUMMARY | 2023-09-30 08:29 | External Medical Summary ---
Author Name Unknown Address Unknown Organization K0G:[facility] [address] - [address] [place] [address] Laboratory Report Ordering Provider Test Date Status GILBERTJANUARY 05/15/2023 09:39:04 Final Based on ACOG guideline, ges tational [...] Abnormality Reference (Units ) Status Glucose, fasting 05/15/2023 09:39:04 92 70- 94 (mg/dL) Final Performing Location LABORATORY [facility] [address] - [address] [place] [address]
--- OUTSIDE RECORDS SUMMARY | 2023-09-30 08:29 | External Medical Summary ---
Author Name Unknown Address Unknown Organization K0G:LABORATORY [facility] [address] - [address] [place] [address] Laboratory Report Ordering Provider Test Date Status JANUARY HUNT 05/15/2023 11:45:06 Final Observation Date Value Abnormality Reference (Units ) Status Glucose, 2-hr post glucose challenge 05/15/2023 11:45:06 123 70-154 (mg/dL) Final Performing Location LABORATORY [facility] 57[address] - [address] [place] [address]
--- OUTSIDE RECORDS SUMMARY | 2023-09-30 08:29 | External Medical Summary | Summary of Care ---
Author Name Unknown Organization [facility] Address [address] [facility] [place] [address] Phone [phone] Care Team Providers Care Salesperson Art Objects Name Role Phone Nika Avery Cate ECHOLS Primary Care Provider Encounter Details Date Type Department Care Team (Late st Contact Info) Description 05/15/2023 [facility]phone [facility] [address] [place] [address] Felicia Magaña CRNP [address] [place] [address] Allergies Active Allergy Reactions Criticality Noted Date Comments Penicillins Hives 09/19/2021 documented as of this encounter (statuses as of 05/15/2023) Medications Medication Sig Dispensed Refills Start Date End Date Status metroNIDAZOLE 500 MG Oral Tablet (Flagyl) Take 1 Tablet by mouth in the morning and 1 Tablet before bedtime. X 7 days until gone.. 14 Tablet 0 01/22/2023 Active Escitalopram Oxalate 10 MG Oral Tablet (Lexapro) Take 1 Tablet by mouth in the morning. 30 Tablet 0 02/12/2023 Active 28-0.8 MG Oral Tablet Take by mouth. 0 Active documented as of this encounter (statuses as of 05/15/2023) Active Problems Problem Noted Date Diagnosed Date [...] as of this encounter (statuses as of 05/15/2023) Immunizations Name Administration Dates Next Due COVID-19 mRNA, LNP-s, No Pre serve, 2-Dose Series (iDreamBooks) 09/07/2021,08/17/2021 Hepatitis B Vaccine, Recombi nant, Adjuvanted, [...] the money to buy more. Never true 02/29/20 24 Within the past 12 months, t he food you bought just didn't last and you didn't have money to get more. Never true 04/11/2023 Jes[place] Depression Scale Answer Date Recorded Jes[place] Depression Scale Total 10 04/11/2023 The thought [...] encounter Miscellaneous Notes * Telephone Encounter - Kaylen Chang RN - 05/15/2023 3:41 PM EDT T/C from pt requesting how to check if Qnatal is covered by insurance. Website given. documented in this encounter Plan of Treatment Upcoming Encounters Date Type Department Care Team (Late st Contact Info) Description 06/12/2023 12:45 PM EDT Imaging Radiology [facility] [address] [facility] [address] [place] [address] 06/12/2023 2:00 PM EDT Office Visit Gynecology/Obstetrics [facility] [address] [facility] [place] [address] Felicia Magaña CRNP [address] [place] [address] Health Maintenance Due Date Last Done Comments Depression Screening 2006 COVID-19 Vaccine (3 - 2022- season) 2022 09/07/2021, 08/17/2021 Pap Smear 12/03/2025 [...] filedocumented as of this encounter Care Teams Salesperson Art Objects Relationship Specialty Start Date End Date Nika Avery CRNP [address] [place] [address] PCP - General Nurse Practitioner 09/19/21 documented as of this encounter
--- OUTSIDE RECORDS SUMMARY | 2023-09-30 08:29 | External Medical Summary ---
Author Name Unknown Address Unknown Organization K01:LABORATORY [facility] [place] - [facility] [address] [facility] [address] [facility] [address] [facility] [address] Laboratory Report Ordering Provider Test Date Status JANUARY HUNT 04/11/2023 15:10:03 Final Observation Date Value Abnormality Reference (Units ) Status HIV 1+2 Ab+HIV1 p24 Ag [Presence] in Serum or Plasma by Immunoassay 04/11/2023 15:10:03 Negative Negative Final Negative HIV-1/2 antigen and antibody screening tset results usually indicate the absence of HIV-1 and HIV-2 infection. However, such negative results do not rule-out acute HIV infection. If acute HIV-1 infection is highly suspected, it is recommended that a specimen be submitted for detection of HIV-1 RNA. Performing Location LABORATORY [facility] [place] - [address] [place] [address]
--- OUTSIDE RECORDS SUMMARY | 2023-09-30 08:29 | External Medical Summary | Summary of Care ---
Author Name Unknown Organization [facility] Address [address] [facility] [address] Phone [phone] Care Team Providers Care Type Inspector Name Role Phone Nika Avery Cate ECHOLS Primary Care Provider Reason for Visit * Reason Comments Return Visit Encounter Details Date Type Department Care Team (Late st Contact Info) Description 06/12/2023 2:00 PM EDT Office Visit Gynecology/Obstetric s Anastacio Chaudhari [address] [place] [address] Felicia Magaña CRNP [address] [place] [address] Encounter for supervision of other normal , unspecified trimester*; History of gestational diabetes; Anxiety during ; Encounter for follow-up ultrasound of anatomy Allergies Active Allergy Reactions Criticality Noted Date Comments Penicillins Hives 09/19/2021 documented as of this encounter (statuses as of 06/12/2023) Medications Medication Sig Dispensed Refills Start Date [...] as of this encounter (statuses as of 06/12/2023) Active Problems Problem Noted Date Diagnosed Date [...] as of this encounter (statuses as of 06/12/2023) Immunizations Name Administration Dates Next Due COVID-19 mRNA, LNP-s, No Pre serve, 2-Dose Series ([employer]) 09/07/2021,08/17/2021 Hepatitis B Vaccine, Recombi nant, Adjuvanted, [...] money to get more. Never true 04/11/2023 Northwood Depression Scale Answer Date Recorded Northwood Depression Scale Total 10 04/11/2023 The thought [...] Sign Reading Time Taken Comments Blood Pressure 100/66 06/12/2023 1:28 PM EDT Pulse - - Temperature - - Respiratory Rate - - Oxygen Saturation - - Inhaled Oxygen Concentration - - Weight 75.4 kg (166 lb 3.2 oz) 06/12/2023 1:28 P M EDT Height 163.8 cm (5' 4.5") 06/12/2023 1:28 PM EDT Body Mass Index 28.09 06/12/2023 1:28 PM EDT documented in this encounter Progress Notes * Felicia Magaña CRNP - 06/12/2023 2:00 PM EDT 21w3d Feeling well. Insurance finally active. Discussed with nurse, will enroll at next visit. Feeling some FM, but has anterior placenta. No bleeding or LOF. Anatomy u/s today, report pending. Having a girl. KINZA Macedo documented in this encounter Nursing Notes * Norma Javier LPN - 06/12/2023 1:51 PM EDT 21w3d Return in 2 weeks for missed views of spine documented in this encounter Plan of Treatment Upcoming Encounters Date Type Department Care Team (Late st Contact Info) Description 06/27/2023 9:45 AM EDT Imaging Radiology [facility] 2nd [facility] [place] [address] [place] [address] 07/10/2023 11:15 AM EDT Office Visit Gynecology/Obstetrics [facility] [address] [place] [address] Latrice Cardozo CRNP [address] [place] [address] Nurse [facility] [address] [facility] [place] [address] Scheduled Orders Name Type Priority Associated Diagnoses Orde r Schedule US PREG LIMITED 1 OR MORE FETUSES Medical Imaging Routine Encounter for follow-up ultrasound of anatomy Expected: 06/26/2023, Expires: 07/12/2024 Health Maintenance Due Date Last Done Comments COVID-19 Vaccine ( season) 2022 09/07/2021, 08/17/2021 Pap Smear 12/03/2025 [...] Personal history of gestational diabetes Anxiety during Encounter for follow-up ultrasound of anatomy documented in this encounter Care Teams Type Inspector Relationship Specialty Start Date End Date Nika Avery CRNP [address] [place] [address] PCP - General Nurse Practitioner 09/19/21 documented as of this encounter
--- OUTSIDE RECORDS SUMMARY | 2023-09-30 08:29 | External Medical Summary ---
Author Name Unknown Address Unknown Organization K01:LABORATORY [place] [address] [address] [place] [address] Laboratory Report Ordering Provider Test Date Status JANUARY HUNT 04/11/2023 15:10:03 Final Observation Date Value Abnormality Reference (Units ) Status SYNC LEUKOCYTES IN BLOOD BY AUTOMATED COUNT 04/11/2023 15:10:03 7.99 4.00-10.80 (K/uL) Final Segs 04/11/2023 15:10:03 66.8 40.0-75.0 (%) Final Lymphs % 04/11/2023 15:10:03 23.4 18.0-42.0 (%) Final Monos 04/11/2023 15:10:03 7.4 1.0-11.0 (%) Final Eosinophils 04/11/2023 15:10:03 1.4 0.0-6.0 (%) Final Basos 04/11/2023 15:10:03 0.5 0.0-2.0 (%) Final Immature Granulocyte, Percent 04/11/2023 15:10:03 0.5 0.0-2.0 (%) Final Absolute Segs 04/11/2023 15:10:03 5.34 1.80-7.70 (K/uL) Final Lymphs, absolute 04/11/2023 15:10:03 1.87 1.00-4.80 (K/ul) Final Monos, Abs 04/11/2023 15:10:03 0.59 0.00-1.10 (K/uL) Final Eos, Abs 04/11/2023 15:10:03 0.11 0.00-0.70 (K/uL) Final Basos, Abs 04/11/2023 15:10:03 0.04 0.00-0.20 (K/uL) Final Immature Granulocytes, Number 04/11/2023 15:10:03 0.04 0.00-0.20 (K/uL) Final Performing Location LABORATORY [facility] - [address] [facility] [address]
--- OUTSIDE RECORDS SUMMARY | 2023-09-30 08:29 | External Medical Summary | Summary of Care ---
Author Name Unknown Organization [facility] Address [address] [facility] [address] Phone [phone] Care Team Providers Care Director Of First Impressions Name Role Phone IvyitaliaNika Cate ECHOLS Primary Care Provider Reason for Visit * Reason Comments Healthy Beginnings New Encounter Details Date Type Department Care Team (Late st Contact Info) Description 04/11/2023 1:45 PM EST Office Visit Gynecology/Obstetric s [facility] [address] [place] [address] Felicia Magaña CRNP [address] [place] [address] Gw, Nurse Marking Devices Assembler New [address] [place] [address] Encounter for supervision of other normal in first trimester*; History of gestational diabetes; Anxiety during Allergies Active Allergy Reactions Criticality Noted Date Comments Penicillins Hives 09/19/2021 documented as of this encounter (statuses as of 04/11/2023) Medications Medication Sig Dispensed Refills Start Date [...] as of this encounter (statuses as of 04/11/2023) Active Problems Problem Noted Date Diagnosed Date [...] as of this encounter (statuses as of 04/11/2023) Immunizations Name Administration Dates Next Due COVID-19 mRNA, LNP-s, No Pre serve, 2-Dose Series ([employer]) 09/07/2021,08/17/2021 Hepatitis B Vaccine, Recombi nant, Adjuvanted, [...] Former Cigarettes 1 10 2 012 - 2022 Smokeless Tobacco: Never Tobacco Cessation:Counseling Given: Not Answered Alcohol Use Standard Drinks/Week Comments Not Currently [...] money to get more. Never true 04/11/2023 Anthony Depression Scale Answer Date Recorded [place] Depression Scale Total 10 04/11/2023 The thought [...] Sign Reading Time Taken Comments Blood Pressure 118/72 04/11/2023 2:00 PM EST Pulse - - Temperature - - Respiratory Rate - - Oxygen Saturation - - Inhaled Oxygen Concentration - - Weight 70.3 kg (155 lb) 04/11/2023 2:00 PM EST Height 163.8 cm (5' 4.5") 04/11/2023 2:00 PM EST Body Mass Index 26.19 04/11/2023 2:00 PM EST documented in this encounter Progress Notes * Felicia Magaña CRNP - 04/11/2023 2:57 PM EST HPI: Lalita Pritchard is a 27 year old year old female here for NOB visit. 12w4d . EDC 10/20/23.Early dating u/s confirming single viable IUP. Reviewed PMH, PSH, social hx, and family hx with pt and FOB. +anxiety. Stopped Lexapro just prior to +HPT. She is not interested in restarting this, fearful of potential complications with baby. GDM with last . Discussed genetic screening tests with pt. She may be interested, but needs to get her insurance figured out. symptoms: no nausea, no vomiting, minimal breast tenderness. She is taking PNV. Past Medical History: Diagnosis Date Dysplasia of cervix, low grade (CHANELLE 1) 01/23/2023 Repeat pap 2023 PAN (generalized anxiety disorder) 11/15/2021 Gestational diabetes Histiocytic necrotizing lymphadenitis 2017 Moderate episode of recurrent major depressive disorder (HCC) 11/15/2021 PTSD (post-traumatic stress disorder) 01/11/2022 Past Surgical History: Procedure Laterality Date JAW ARTHROSCOPY/SURGERY 01/2018 [place] BX/EXC LYMPH NODE OPEN SUPERFICIAL 2018 left anterior cervical Current outpatient prescriptions Current Outpatient Medications Medication Sig Dispense Refill 28-0.8 MG Oral Tablet Take by mouth. metroNIDAZOLE 500 MG Oral Tablet (Flagyl) Take 1 Tablet by mouth in the morning and 1 Tablet beforebedtime. X 7 days until gone.. 14 Tablet 0 Escitalopram Oxalate 10 MG Oral Tablet (Lexapro) Take 1 Tablet by mouth in the morning. 30 Tablet 0 No current facility-administered medications for this visit. 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 [employer] Tobacco Use Smoking status: Former Current packs/day: 0.00 Average packs/day: 1 pack/day for 10.0 years (10.0 ttl pk-yrs) Types: Cigarettes Start date: 2011 Quit date: 2021 Years since quittin.1 Smokeless tobacco: Never Vaping Use Vaping Use: Never used Substance and Sexual Activity Alcohol use: Not Currently Drug use: Not Currently Sexual activity: Yes Partners: Male Other Topics Concern Not on file Social History Narrative Live in [place] with 4yo daughter and boyfriend 2 DOGS Social Determinants of Health Financial Resource Strain: Not on file Food Insecurity: No Food Insecurity (04/11/2023) Hunger Vital Sign Worried About Running Out of Food in the Last Year: Never true Ran Out of Food in the Last Year: Never true Transportation Needs: Not on file Physical Activity: Not on file Stress: Not on file Social Connections: Not on file Intimate Partner Violence: Not on file Housing Stability: Not on file Family History Family History Problem Relation Age of Onset Hypertension Mother Hypertension Father Hyperlipidemia Father Other (Accident) Sister MVA Blindness Brother Heart attack Grandmother (Maternal) 60s Alzheimer's disease Grandmother (Maternal) Glaucoma Grandfather (Maternal) Esophageal cancer Grandfather (Maternal) Other (leukemia) Grandmother (Paternal) Other (MDS) Grandmother (Paternal) in her 80s Arrhythmia Grandfather (Paternal) Obstetric History OB History Para Term AB Living 2 1 1 1 SAB IAB Ectopic Multiple Live Births 1 # Outcome Date GA Lbr Jay/2nd Weight Sex Delivery Anes PTL Lv 2 Current 1 Term 06/24/17 40w0d 2.722 kg (6 lb) F Induction of LUCIO PHYSICAL EXAM: See physical IMPRESSION: Encounter for supervision of other normal in first trimester (Primary) - CULTURE, URINE, QUANTITATIVE; Future; Expected date: 04/11/2023 - TYPE AND SCREEN; Future; Expected date: 04/11/2023 - RUBELLA IGG ANTIBODY; Future; Expected date: 04/11/2023 - HEPATITIS B SURFACE ANTIGEN; Future; Expected date: 04/11/2023 - HIV ANTIGEN & ANTIBODY SCREEN W/ CONFIRMATION; Future; Expected date: 04/11/2023 - CHLAMYDIA TRACHOMATIS AND NEISSERIA GONORRHOEAE, AMPLIFIED PROBE; Future; Expected date: 04/11/2023 - CBC WITH WBC DIFFERENTIAL AND ANEMIA REFLEX WORKUP; Future; Expected date: 04/11/2023 - HEPATITIS C ANTIBODY SCREEN WITH PROGRESSION TO HEPATITIS C RNA QUANTITATIVE; Future; Expected date: 04/11/2023 - SYPHILIS ANTIBODY SCREEN WITH REFLEX TO RPR; Future; Expected date: 04/11/2023 - URINALYSIS, POINT OF CARE (ENTER/EDIT) - 50-G GESTATIONAL GLUCOSE, 1 HOUR; Future; Expected date: 04/11/2023 - CULTURE, URINE, QUANTITATIVE - CHLAMYDIA TRACHOMATIS AND NEISSERIA GONORRHOEAE, AMPLIFIED PROBE History of gestational diabetes - 50-G GESTATIONAL GLUCOSE, 1 HOUR; Future; Expected date: 04/11/2023 Anxiety during Strongly encouraged to restart medication. Follow Up: Return in about 4 weeks (around 05/09/2023) for bev. | For: bev | Check-out note: Lab today Glucola with next visit KINZA Macedo documented in this encounter Nursing Notes * Shavon Tavera RN - 04/11/2023 2:01 PM EST Patient here for NOB visit LMP 01/13/2023 Dating US 03/19/2023 showing PAOLO 10/20/2023 No bleeding or pain Smoking less than half a pack daily - would like help/advice on quitting Hx of GDM in 1st Education given Triage number given Shavon Tavera RN documented in this encounter Plan of Treatment Upcoming Encounters Date Type Department Care Team (Late st Contact Info) Description 04/11/2023 3:30 PM EST [facility] [address] [place] [phone] [facility] [address] [place] [phone] Encounter for supervision of other normal in first trimester 05/10/2023 10:30 AM EDT Office [facility] [address] [place] [address] Felicia Magaña CRNP [address] [place] [address] Pending Results Name Type Priority Associated Diagnoses Date /Time CULTURE, URINE, QUANTITATIVE Lab Routine Encounter for supervision of other normal in first trimester 04/11/2023 3:01 PM EST TYPE AND SCREEN Lab Routine Encounter for supervision of other normal in first trimester 04/11/2023 3:10 PM EST RUBELLA IGG ANTIBODY Lab Routine Encounter for supervision of other normal in first trimester 04/11/2023 3:10 PM EST HEPATITIS B SURFACE ANTIGEN Lab Routine Encounter for supervision of other normal in first trimester 04/11/2023 3:10 PM EST HIV ANTIGEN & ANTIBODY SCREEN W/ CONFIRMATION Lab Routine Encounter for supervision of other normal in first trimester 04/11/2023 3:10 PM EST CHLAMYDIA TRACHOMATIS AND NEISSERIA GONORRHOEAE, AMPLIFIED PROBE Lab Routine Encounter for supervision of other normal in first trimester 04/11/2023 3:01 PM EST CBC WITH WBC DIFFERENTIAL AND ANEMIA REFLEX WORKUP Lab Routine Encounter for supervision of other normal in first trimester 04/11/2023 3:10 PM EST HEPATITIS C ANTIBODY SCREEN WITH PROGRESSION TO HEPATITIS C RNA QUANTITATIVE Lab Routine Encounter for supervision of other normal in first trimester 04/11/2023 3:10 PM EST SYPHILIS ANTIBODY SCREEN WITH REFLEX TO RPR Lab Routine Encounter for supervision of other normal in first trimester 04/11/2023 3:10 PM EST Scheduled Orders Name Type Priority Associated Diagnoses Orde r Schedule CULTURE, URINE, QUANTITATIVE Lab Routine Encounter for supervision of other normal in first trimester Expected: 04/11/2023, Expires: 04/10/2024 TYPE AND SCREEN Lab Routine Encounter for supervision of other normal in first trimester Expected: 04/11/2023 (Approximate), Expires: 05/09/2024 RUBELLA IGG ANTIBODY Lab Routine Encounter for supervision of other normal in first trimester Expected: 04/11/2023 (Approximate), Expires: 04/10/2024 HEPATITIS B SURFACE ANTIGEN Lab Routine Encounter for supervision of other normal in first trimester Expected: 04/11/2023 (Approximate), Expires: 04/10/2024 HIV ANTIGEN & ANTIBODY SCREEN W/ CONFIRMATION Lab Routine Encounter for supervision of other normal in first trimester Expected: 04/11/2023, Expires: 04/10/2024 CHLAMYDIA TRACHOMATIS AND NEISSERIA GONORRHOEAE, AMPLIFIED PROBE Lab Routine Encounter for supervision of other normal in first trimester Expected: 04/11/2023, Expires: 04/10/2024 CBC WITH WBC DIFFERENTIAL AND ANEMIA REFLEX WORKUP Lab Routine Encounter for supervision of other normal in first trimester Expected: 04/11/2023, Expires: 04/10/2024 HEPATITIS C ANTIBODY SCREEN WITH PROGRESSION TO HEPATITIS C RNA QUANTITATIVE Lab Routine Encounter for supervision of other normal in first trimester Expected: 04/11/2023, Expires: 04/10/2024 SYPHILIS ANTIBODY SCREEN WITH REFLEX TO RPR Lab Routine Encounter for supervision of other normal in first trimester Expected: 04/11/2023, Expires: 04/10/2024 50-G GESTATIONAL GLUCOSE, 1 HOUR Lab Routine Encounter for supervision of other normal in first trimester History of gestational diabetes Expected: 04/11/2023, Expires: 04/10/2024 Health Maintenance Due Date Last Done Comments [...] Procedure Name Priority Date/Time Associated Diagnosis Comments URINALYSIS, POINT OF CARE (ENTER/EDIT) Routine 04/11/2023 Encounter for supervision of other normal in first trimester documented in this encounter Results * URINALYSIS, POINT OF CARE (ENTER/EDIT) (04/11/2023) Color, Urine Yellow Yellow or Light Yellow Clarity, Urine Clear Clear Glucose, Urine Negative Negative mg/dL Bilirubin, Urine Negative Negative Ketone, Urine Negative Negative mg/dL Specific [place], Urine 1.025 1.003 - 1.030 Blood, Urine Negative Negative pH, Urine 7.0 5.0 - 7.5 units Protein, Urine Negative Negative mg/dL Urobilinogen, Urine 0.2 0.2 - 1.0 mg/dL Nitrite, Urine Negative Negative Esterase, Urine Negative Negative Urine 04/11/2023 Felicia ECHOLS LAB POINT OF CARE TE ST ENTER/EDIT ORDERABLES documented in this encounter Visit Diagnoses Diagnosis Encounter for supervision of other normal in first trimester- Primary History of gestational diabetes Personal history of gestational diabetes Anxiety during Encounter for supervision of other normal in first trimester documented in this encounter Care Teams Director Of First Impressions Relationship Specialty Start Date End Date Nika Avery CRNP [address] [phone] PCP - General Nurse Practitioner 09/19/21 documented as of this encounter
--- OUTSIDE RECORDS SUMMARY | 2023-09-30 08:29 | External Medical Summary | Summary of Care ---
Author Name Unknown Organization [facility] Address [address] [facility] [place] [address] Phone [phone] Care Team Providers Care Sofa Inspector Name Role Phone Nika Avery Cate ECHOLS Primary Care Provider Encounter Details Date Type Department Care Team (Late st Contact Info) Description 05/10/2023 Telephone [facility] [address] [place] [phone] Felicia Magaña CRNP [address] [place] [address] Allergies Active Allergy Reactions Criticality Noted Date Comments Penicillins Hives 09/19/2021 documented as of this encounter (statuses as of 05/10/2023) Medications Medication Sig Dispensed Refills Start Date [...] as of this encounter (statuses as of 05/10/2023) Active Problems Problem Noted Date Diagnosed Date [...] as of this encounter (statuses as of 05/10/2023) Immunizations Name Administration Dates Next Due COVID-19 mRNA, LNP-s, No Pre serve, 2-Dose Series ([employer]) 09/07/2021,08/17/2021 Hepatitis B Vaccine, Recombi nant, Adjuvanted, [...] money to get more. Never true 04/11/2023 [place] Depression Scale Answer Date Recorded [place] Depression Scale Total 10 04/11/2023 The thought [...] Telephone Encounter - Shavon Tavera RN - 05/10/2023 1:46 PM EDT Attempted to call patient, no answer, LVM to return call. * Telephone Encounter - Felicia Magaña CRNP - 05/10/2023 1:26 PM EDT Please notify pt that glucola elevated (133). Needs 3hr GTT. Orders placed. documented in this encounter Plan of Treatment Upcoming Encounters Date Type Department Care Team (Late st Contact Info) Description 06/12/2023 12:45 PM EDT Imaging Radiology [facility] 2nd Floor, [place] [address] [place] [address] 06/12/2023 2:00 PM EDT Office Visit Gynecology/Obstetrics [facility] [address] [place] [address] Felicia Magaña CRNP [address] [place] [address] Scheduled Orders Name Type Priority Associated Diagnoses Orde r Schedule GESTATIONAL GLUCOSE TOLERANCE, 3 HOUR Lab Routine Abnormal glucose tolerance in mother complicating Expected: 05/11/2023 (Approximate), Expires: 05/09/2024 Health Maintenance Due Date Last Done Comments Depression Screening 2006 COVID-19 Vaccine (3 - season) 2022 09/07/2021, 08/17/2021 Pap Smear 12/03/2025 12/03/2022 DTaP,Tdap,and Td Vaccines (2 - Td or Tdap) 03/27/2027 03/27/2017 Hepatitis B Completed 09/17/2022, 070 06/2022, 02/20/1995, Additional history exists Influenza Vaccine [...] as of this encounter Visit Diagnoses Diagnosis Abnormal glucose tolerance in mother complicating - Primary Abnormal maternal glucose tolerance, complicating , childbirth, or the puerperium, unspecified as to episode of care documented in this encounter Care Teams Sofa Inspector Relationship Specialty Start Date End Date Nika Avery CRNP [address] [address] PCP - General Nurse Practitioner 09/19/21 documented as of this encounter
--- OUTSIDE RECORDS SUMMARY | 2023-09-30 08:29 | External Medical Summary | Summary of Care ---
Author Name Unknown Organization [facility] Address [address] [facility] [place] [address] Phone [phone] Care Team Providers Care Primary Teacher Name Role Phone Nika Avery Cate ECHOLS Primary Care Provider Encounter Details Date Type Department Care Team (Late st Contact Info) Description 05/15/2023 Telephone [facility] [address] [place] [address] Felicia Magaña CRNP [address] [place] [...] mRNA, LNP-s, No Pre serve, 2-Dose Series ([employer]) 09/07/2021,08/17/2021 Hepatitis B Vaccine, Recombi nant, Adjuvanted, [...] money to get more. Never true 04/11/2023 [place] Depression Scale Answer Date Recorded [place] Depression Scale Total 10 04/11/2023 The thought [...] Telephone Encounter - Shavon Tavera RN - 05/15/2023 2:30 PM EDT Called patient and made aware. Patient was not feeling well directly after testing but she got something to eat and is hydrating and feeling better. She is aware to contact office with any concerns * Telephone Encounter - Felicia Magaña CRNP - 05/15/2023 2:24 PM EDT Please call pt- she passed her 3 hour glucose test. Her last level was very low. Make sure she is ok. May feel a bit crummy today from the low reading but should be fine. documented in this encounter Plan of Treatment Upcoming Encounters Date Type Department Care Team (Late st Contact Info) Description 06/12/2023 12:45 PM EDT Imaging Radiology [facility] [address] [facility] [place] [address] [facility] [place] [address] 06/12/2023 2:00 PM EDT Office Visit Gynecology/Obstetrics [facility] [address] [facility] [place] [address] Felicia Magaña CRNP [address] [place] [address] Health Maintenance Due Date Last Done Comments [...] filedocumented as of this encounter Care Teams Primary Teacher Relationship Specialty Start Date End Date Nika Avery CRNP [address] [place] [address] PCP - General Nurse Practitioner 09/19/21 documented as of this encounter
--- OUTSIDE RECORDS SUMMARY | 2023-09-30 08:29 | External Medical Summary | Summary of Care ---
Author Name Unknown Organization [facility] Address [address] [facility] [place] [address] Phone [phone] Care Team Providers Care Doctor Naturopathic Name Role Phone Nika Avery Cate ECHOLS Primary Care Provider Reason for Visit * Reason Comments Outpatient Testing Encounter Details Date Type Department Care Team (Late st Contact Info) Description 04/11/2023 3:30 PM EST Laboratory Laboratory, [facility] [address] [facility] [place] [phone] [facility] [address] [place] [address] Encounter for supervision of other normal in first trimester Allergies Active Allergy Reactions Criticality Noted [...] mRNA, LNP-s, No Pre serve, 2-Dose Series ([employer]) 09/07/2021,08/17/2021 Hepatitis B Vaccine, Recombi nant, Adjuvanted, [...] money to get more. Never true 04/11/2023 [place] Depression Scale Answer Date Recorded [place] Depression Scale Total 10 04/11/2023 The thought [...] Team (Late st Contact Info) Description 05/10/2023 10:30 AM EDT Office Visit Gynecology/Obstetrics [facility] [address] [place] [address] Felicia Magaña CRNP [address] [place] [address] Pending Results Name Type Priority Associated Diagnoses Date /Time TYPE AND SCREEN Lab Routine Encounter for [...] in first trimester 04/11/2023 3:10 PM EST CBC WITH WBC DIFFERENTIAL AND [...] in first trimester 04/11/2023 3:10 PM EST ANEMIA CBC Lab Routine Encounter for supervision of other normal in first trimester 04/11/2023 3:10 PM EST DIFFERENTIAL, AUTOMATED Lab Routine Encounter for supervision of other normal in first trimester 04/11/2023 3:10 PM EST ANEMIA REFLEX CHEMISTRY HOLD Lab Routine Encounter for supervision of other normal in first trimester 04/11/2023 3:10 PM EST HEPATITIS C ANTIBODY Lab Routine Encounter for supervision of other normal in first trimester 04/11/2023 3:10 PM EST HEPATITIS C RNA ADD ON Lab Routine Encounter for supervision of other normal in first trimester 04/11/2023 3:10 PM EST SYPHILIS ANTIBODY SCREEN Lab Routine Encounter for supervision of other normal in first trimester 04/11/2023 3:10 PM EST Health Maintenance Due Date Last Done Comments Depression Screening 2006 COVID-19 Vaccine ( season) 2022 09/07/2021, [...] trimester documented in this encounter Care Teams Doctor Naturopathic Relationship Specialty Start Date End Date Nika Avery CRNP [address] [place] [address] PCP - General Nurse Practitioner 09/19/21 documented as of this encounter
--- OUTSIDE RECORDS SUMMARY | 2023-09-30 08:29 | External Medical Summary | Summary of Care ---
Author Name Unknown Organization [facility] Address [address] [facility] [address] Phone [phone] Care Team Providers Care Paint Line Operator Name Role Phone IvyitaliaNika Cate ECHOLS Primary Care Provider Reason for Visit * Reason Comments Healthy Beginnings New Encounter Details Date Type Department Care Team (Late st Contact Info) Description 04/11/2023 1:45 PM EST Office Visit Gynecology/Obstetric s [facility] [address] [place] [address] Felicia Magaña CRNP [address] [place] [address] Gw, Nurse Associate Director Regulatory Affairs New [address] [place] [address] Encounter for supervision of other normal in [...] mRNA, LNP-s, No Pre serve, 2-Dose Series ([employer]) 09/07/2021,08/17/2021 Hepatitis B Vaccine, Recombi nant, Adjuvanted, [...] money to get more. 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 [employer] Tobacco Use Smoking status: Former Current packs/day: [...] on file Social History Narrative Live in [place] with 4yo daughter and boyfriend 2 DOGS [...] Description 04/11/2023 3:30 PM EST [facility] [address] [place] [phone] [facility] [address] [place] [address] Encounter for supervision of other normal in first trimester 05/10/2023 10:30 AM EDT Office Visit Gynecology/Obstetric s [facility] [address] [place] [address] Felicia Magaña CRNP [address] [place] [address] Pending Results Name Type Priority Associated Diagnoses [...] Negative Ketone, Urine Negative Negative mg/dL Specific [place], Urine 1.025 1.003 - 1.030 Blood, Urine [...] trimester documented in this encounter Care Teams Paint Line Operator Relationship Specialty Start Date End Date Nika Avery CRNP [address] [place] [address] PCP - General Nurse Practitioner 09/19/21 documented as of this encounter
--- OUTSIDE RECORDS SUMMARY | 2023-09-30 08:29 | External Medical Summary ---
Author Name Unknown Address Unknown Organization K01:[facility] - [address] [place] [address] Laboratory Report Ordering Provider Test Date Status JANUARY HUNT 04/11/2023 15:10:03 Final Observation Date Value Abnormality Reference (Units ) Status Hep C Ab 04/11/2023 15:10:03 Negative Negative Final Further HCV quantitative les ting not performed per protocol. Performing Location [facility] - [address] [place] [address]
--- OUTSIDE RECORDS SUMMARY | 2023-09-30 08:29 | External Medical Summary | Summary of Care ---
Author Name Unknown Organization [facility] Address [address] [facility] [address] Phone [phone] Care Team Providers Care Mandarin Teacher Name Role Phone Nika Avery Cate ECHOLS Primary Care Provider Reason for Visit * Reason Comments Outpatient Testing Encounter Details Date Type Department Care Team (Late st Contact Info) Description 05/10/2023 10:10 AM EDT Laboratory Laboratory, [facility] 132 [facility] [place] [phone] [facility] 132 [place] [address] Encounter for supervision of other normal in first trimester; History of gestational diabetes Allergies Active Allergy Reactions Criticality Noted Date [...] money to get more. Never true 04/11/2023 [place] Depression Scale Answer Date Recorded [place] Depression Scale Total 10 04/11/2023 The thought [...] Description 06/12/2023 12:45 PM EDT Imaging Radiology [facility] 2nd [facility] 132 [facility] [place] [address] 06/12/2023 2:00 PM EDT Office Visit Gynecology/Obstetrics [facility] 132 [facility] [place] [address] Felicia Magaña CRNP 132 [facility] [place] [address] Pending Results Name Type Priority Associated Diagnoses Date /Time 50-G GESTATIONAL GLUCOSE, 1 HOUR Lab Routine Encounter for supervision of other normal in first trimester History of gestational diabetes 05/10/2023 11:03 AM EDT Health Maintenance Due Date Last Done [...] in first trimester History of gestational diabetes Personal history of gestational diabetes documented in this encounter Care Teams Mandarin Teacher Relationship Specialty Start Date End Date Nika Avery CRNP [address] [place] [address] PCP - General Nurse Practitioner 09/19/21 documented as of this encounter
--- OUTSIDE RECORDS SUMMARY | 2023-09-30 08:29 | External Medical Summary | Summary of Care ---
Author Name Unknown Organization [facility] [address] [facility] [address] Phone [phone] Care Team Providers Care Flight Operations Manager Name Role Phone Nika Avery Cate ECHOLS Primary Care Provider Reason for Visit * Reason Comments Outpatient Testing Encounter Details Date Type Department Care Team (Late st Contact Info) Description 05/15/2023 9:50 AM EDT Laboratory [facility], [facility] [phone] [facility] 132 [place] [address] Abnormal glucose tolerance in mother complicating Allergies Active Allergy Reactions Criticality Noted Date [...] mRNA, LNP-s, No Pre serve, 2-Dose Series ([employer] [facility]) 09/07/2021,08/17/2021 Hepatitis B Vaccine, Recombi nant, Adjuvanted, [...] money to get more. Never true 04/11/2023 [place] Depression Scale Answer Date Recorded [place] Depression Scale Total 10 04/11/2023 The thought [...] Description 06/12/2023 12:45 PM EDT Imaging Radiology [facility] 2nd [facility] 132 [facility] [place] [address] 06/12/2023 2:00 PM EDT Office Visit Gynecology/Obstetrics [facility] [address] [place] [address] Felicia Magaña CRNP 132 [facility] [place] [address] Pending Results Name Type Priority Associated Diagnoses Date /Time GESTATIONAL GLUCOSE TOLERANCE, 3 HOUR Lab Routine Abnormal glucose tolerance in mother complicating 05/15/2023 9:39 AM EDT 100-G GESTATIONAL GLUCOSE, 3 HOUR Lab Routine Abnormal glucose tolerance in mother complicating 05/15/2023 12:42 PM EDT Health Maintenance Due Date Last [...] Procedure Name Priority Date/Time Associated Diagnosis Comments 100-G GESTATIONAL GLUCOSE, 2 HOUR Routine 05/15/2023 11:45 AM EDT Abnormal glucose tolerance in mother complicating 100-G GESTATIONAL GLUCOSE, 1 HOUR Routine 05/15/2023 10:43 AM EDT Abnormal glucose tolerance in mother complicating 100-G GESTATIONAL GLUCOSE, FASTING Routine 05/15/2023 9:39 AM EDT Abnormal glucose tolerance in mother complicating documented in this encounter Results * 100-G GESTATIONAL GLUCOSE, 2 HOUR (05/15/2023 11:45 AM EDT) 100-g Gestational Glucose, 2 Hour 123 70 - 154 mg/dL 05/15/2023 12:53 PM EDT [facility] [place] 57-10 Blood Venous blood specimen / Unknown Venipuncture / Unknown 05/15/2023 11:45 AM EDT 05/15/2023 11:45 AM EDT Felicia ECHOLS LAB BLOOD ORDERABLES [facility] [place] [address] [place] [address] [place] [address] * 100-G GESTATIONAL GLUCOSE, 1 HOUR (05/15/2023 10:43 AM EDT) 100-g Gestational Glucose, 1 Hour 160 70 - 179 mg/dL 05/15/2023 12:23 PM EDT [facility] [place] [facility]10 Blood Venous blood specimen / Unknown Venipuncture / Unknown 05/15/2023 10:43 AM EDT 05/15/2023 10:43 AM EDT Felicia ECHOLS LAB BLOOD ORDERABLES [facility] [place] [facility]-10 [address] [place] [address] * 100-G GESTATIONAL GLUCOSE, FASTING (05/15/2023 9:39 AM EDT) 100-g Gestational Glucose, Fasting 92 70 - 94 mg/dL 05/15/2023 10:19 AM EDT [facility] [place] [facility]10 Blood Venous blood specimen / Unknown Venipuncture / Unknown 05/15/2023 9:39 AM EDT 05/15/2023 9:39 AM EDT Narrative [facility] [place] 57-10 - 05/15/2023 10:19 AM EDT Based on ACOG guideline, gestational diabetes mellitus is diagnosed when any of the following is met: Fasting is greater than or equal to 95 mg/dL 1 hour is greater than or equal to 180 mg/dL 2 hour is greater than or equal to 155 mg/dL 3 hour is greater than or equal to 140 mg/dL Felicia ECHOLS LAB BLOOD ORDERABLES [facility] 57[facility]10 132 [place] [address] documented in this encounter Visit Diagnoses Diagnosis Abnormal glucose tolerance in mother complicating Abnormal maternal glucose tolerance, complicating , childbirth, or the puerperium, unspecified as to episode of care documented in this encounter Care Teams Flight Operations Manager Relationship Specialty Start Date End Date Nika Avery CRNP 132 [place] [address] PCP - General Nurse Practitioner 09/19/21 documented as of this encounter
--- OUTSIDE RECORDS SUMMARY | 2023-09-30 08:29 | External Medical Summary | Summary of Care ---
Author Name Unknown Organization [facility] Address [address] [facility] [place] [address] Phone [phone] Care Team Providers Care Toxicology Supervisor Name Role Phone Nika Avery Cate ECHOLS Primary Care Provider Encounter Details Date Type Department Care Team (Late st Contact Info) Description 05/10/2023 Telephone [facility] [address] [place] [address] Felicia Magaña CRNP [address] [place] [...] mRNA, LNP-s, No Pre serve, 2-Dose Series ([employer]) 09/07/2021,08/17/2021 Hepatitis B Vaccine, Recombi nant, [...] money to get more. Never true 04/11/2023 [place] Depression Scale Answer Date Recorded [place] Depression Scale Total 10 04/11/2023 The thought [...] encounter Miscellaneous Notes * Telephone Encounter - Consuelo Overton LPN - 05/10/2023 2:35 PM EDT Phone call from pt. Pt aware and verbalizes understanding . Please contact pt to schedule with lab. Consuelo Overton LPN 05/10/2023 2:36 PM * Telephone Encounter - Shavon Tavera RN [...] Description 06/12/2023 12:45 PM EDT Imaging Radiology [facility] 2nd [facility] [address] [place] [address] 06/12/2023 2:00 PM EDT Office Visit Gynecology/Obstetrics Anastacio Reillys [address] [place] [address] Felicia Magaña CRNP [address] [place] [address] Scheduled Orders Name Type Priority Associated Diagnoses [...] care documented in this encounter Care Teams Toxicology Supervisor Relationship Specialty Start Date End Date Nika Avery CRNP [address] [place] [address] PCP - General Nurse Practitioner 09/19/21 documented as of this encounter
--- OUTSIDE RECORDS SUMMARY | 2023-09-30 08:29 | External Medical Summary ---
Author Name Unknown Address Unknown Organization [id number]:LABORATORY [facility] 57-10 - [address] [place] [address] Laboratory Report Ordering Provider Test Date Status JANUARY HUNT 05/15/2023 12:42:24 Final Observation Date Value Abnormality Reference (Units ) Status Glucose [Mass/volume] in Serum or Plasma --3 hours post dose glucose 05/15/2023 12:42:24 40 Below lower panic limits 70-139 (mg/dL) Final Results rechecked. Performing Location [facility] 57-1 0 - [address] [place] [address]
--- OUTSIDE RECORDS SUMMARY | 2023-09-30 08:29 | External Medical Summary | Summary of Care ---
Author Name Unknown Organization [facility] Address [address] [facility] [place] [address] Phone [phone] Care Team Providers Care Liner Reroll Tender Name Role Phone Nika Avery Cate ECHOLS Primary Care Provider Encounter Details Date Type Department Care Team (Late st Contact Info) Description 05/10/2023 Telephone [facility] [address] [place] [address] Felicia Magaña CRNP [address] [place] [address] Allergies Active Allergy Reactions Criticality Noted Date Comments Penicillins Hives 09/19/2021 documented as of this encounter (statuses as of 05/13/2023) Medications Medication Sig Dispensed Refills Start Date [...] as of this encounter (statuses as of 05/13/2023) Active Problems Problem Noted Date Diagnosed Date [...] as of this encounter (statuses as of 05/13/2023) Immunizations Name Administration Dates Next Due COVID-19 mRNA, LNP-s, No Pre serve, 2-Dose Series ([employer]) 09/07/2021,08/17/2021 Hepatitis B Vaccine, Recombi nant, Adjuvanted, [...] money to get more. Never true 04/11/2023 [place] Depression Scale Answer Date Recorded [place] Depression Scale Total 10 04/11/2023 The thought [...] Description 06/12/2023 12:45 PM EDT Imaging Radiology [facility] [address] [facility] [address] [place] [address] 06/12/2023 2:00 PM EDT Office Visit Gynecology/Obstetrics Anastacio Reillys [address] [place] [address] Felicia Magaña CRNP [address] [place] [address] Scheduled Orders Name Type Priority Associated Diagnoses [...] care documented in this encounter Care Teams Liner Reroll Tender Relationship Specialty Start Date End Date Nika Avery CRNP [address] [place] [address] PCP - General Nurse Practitioner 09/19/21 documented as of this encounter
--- OUTSIDE RECORDS SUMMARY | 2023-09-30 08:29 | External Medical Summary | Summary of Care ---
Author Name Unknown Organization [facility] Address [address] [facility] [address] Phone [phone] Care Team Providers Care Supervisor Public Message Service Name Role Phone Nika Avery Cate ECHOLS Primary Care Provider Reason for Visit * Reason Comments Return Visit Encounter Details Date Type Department Care Team (Late st Contact Info) Description 05/10/2023 10:30 AM EDT Office Visit Gynecology/Obstetric s Anastacio Chaudhari [address] [place] [address] Felicia Magaña CRNP [address] [place] [address] Encounter for supervision of other normal , unspecified trimester*; History of gestational diabetes; Anxiety during ; Tobacco smoking affecting in second trimester Allergies Active Allergy Reactions Criticality Noted [...] money to get more. Never true 04/11/2023 [place] Depression Scale Answer Date Recorded [place] Depression Scale Total 10 04/11/2023 The thought [...] Reading Time Taken Comments Blood Pressure 102/64 05/10/2023 10:14 AM EDT Pulse - - Temperature - - Respiratory Rate - - Oxygen Saturation - - Inhaled Oxygen Concentration - - Weight 72.1 kg (159 lb) 05/10/2023 10:14 AM EDT Height - - Body Mass Index 26.87 04/11/2023 2:00 PM EST documented in this encounter Progress Notes * Felicia Magaña CRNP - 05/10/2023 10:25 AM EDT 16w5d No concerns. Doesn't yet have insurance, but is working on this. Completing early glucola today. Denies bleeding, n/v. KINZA Macedo * Fiona Espana LPN - 05/10/2023 10:13 AM EDT 16w5d Denies vaginal bleeding/rom Absent movement No new concerns documented in this encounter Plan of Treatment Upcoming Encounters Date Type Department Care Team (Late st Contact Info) Description 06/12/2023 12:45 PM EDT Imaging Radiology [facility]nd [facility] [address] [place] [address] 06/12/2023 2:00 PM EDT Office Visit Gynecology/Obstetrics [facility] [address] [place] [address] Felicia Magaña CRNP [address] [place] [address] Scheduled Orders Name Type Priority Associated Diagnoses Orde r Schedule US PREG SINGLE/1ST GEST, 14 WEEKS OR LATER Medical Imaging Routine Encounter for supervision of other normal , unspecified trimester Expected: 05/24/2023, Expires: 06/09/2024 Health Maintenance Due Date Last Done Comments [...] diabetes Anxiety during Tobacco smoking affecting in second trimester documented in this encounter Care Teams Supervisor Public Message Service Relationship Specialty Start Date End Date Nika Avery CRNP [address] [place] [address] PCP - General Nurse Practitioner 09/19/21 documented as of this encounter
--- OUTSIDE RECORDS SUMMARY | 2023-09-30 08:29 | External Medical Summary ---
Author Name Unknown Address Unknown Organization [id number]:[facility] - [address] [place] [address] Laboratory Report Ordering Provider Test Date Status JANUARY HUNT 04/11/2023 15:10:03 Final Observation Date Value Abnormality Reference (Units ) Status ABO 04/11/2023 15:10:03 A Final RH 04/11/2023 15:10:03 Positive Final RED BLOOD CELL ANTIBODY SCREEN 04/11/2023 15:10:03 Negative Final SPECIMEN EXPIRATION DATE 04/11/2023 15:10:03 04/14/2023 23:59 Final Performing Location [facility] - [address] [place] [address]
--- OUTSIDE RECORDS SUMMARY | 2023-09-30 08:29 | External Medical Summary | Summary of Care ---
Author Name Unknown Organization [facility] Address [address] [facility] [place] [address] Phone [phone] Care Team Providers Care Air Traffic Control Operator Name Role Phone Nika Avery Cate ECHOLS Primary Care Provider Encounter Details Date Type Department Care Team (Late st Contact Info) Description 05/10/2023 Telephone [facility] [address] [place] [address] Felicia Magaña CRNP [address] [place] [address] Allergies Active Allergy Reactions Criticality Noted Date Comments Penicillins Hives 09/19/2021 documented as of this encounter (statuses as of 05/14/2023) Medications Medication Sig Dispensed Refills Start Date [...] as of this encounter (statuses as of 05/14/2023) Active Problems Problem Noted Date Diagnosed Date [...] as of this encounter (statuses as of 05/14/2023) Immunizations Name Administration Dates Next Due COVID-19 mRNA, LNP-s, No Pre serve, 2-Dose Series ([employer]) 09/07/2021,08/17/2021 Hepatitis B Vaccine, Recombi nant, Adjuvanted, [...] money to get more. Never true 04/11/2023 [place] Depression Scale Answer Date Recorded [place] Depression Scale Total 10 04/11/2023 The thought [...] encounter Miscellaneous Notes * Telephone Encounter - Jess Ji MED ASSIST - 05/14/2023 10:17 AM EDT Appt scheduled, pt aware * Telephone Encounter - Consuelo Overton LPN [...] Description 05/15/2023 9:50 AM EDT Laboratory [facility] [place] [phone] [facility] 132 [facility] [place] [address] 06/12/2023 12:45 PM EDT Imaging Radiology [facility] 2nd [facility] 132 [facility] [place] [address] 06/12/2023 2:00 PM EDT Office Visit Gynecology/Obstetrics [facility] 132 [facility] [place] [address] Felicia Magaña CRNP 132 [facility] [place] [address] Scheduled Orders Name Type Priority Associated Diagnoses [...] care documented in this encounter Care Teams Air Traffic Control Operator Relationship Specialty Start Date End Date Nika Avery CRNP 132 [place] [address] PCP - General Nurse Practitioner 09/19/21 documented as of this encounter
--- OUTSIDE RECORDS SUMMARY | 2023-09-30 08:30 | External Medical Summary ---
Author Name Unknown Address Unknown Organization [id number]:[facility] [address] [place] [address] Laboratory Report Ordering Provider Test Date Status GILBERTJANUARY 04/11/2023 15:01:01 Final Observation Date Value Abnormality Reference (Units) Status Bacteria identified in Specimen by Culture 04/11/2023 15:01:01 No significant growth Final Test: Culture, Urine, Quant itative
Specimen Source: Urine, Clean Catch
Specimen Type: Urine
Specimen Date: 04/11/2023 3:01 PM
Result Date: 04/13/2023 10:03 AM
Result Status: Final result
Resulting Lab: [facility]
[address]
[place] [facility]

CULTURE

No significant growth

null Performing Location [facility] - [address] [place] [id number]
--- OUTSIDE RECORDS SUMMARY | 2023-09-30 08:30 | External Medical Summary ---
Author Name Unknown Address Unknown Organization [id number]:[facility] [place] - [address] [facility] [address] [place] [address] Laboratory Report Ordering Provider Test Date Status CASSIDY HUNTSCOTT 04/11/2023 15:01:01 Final Observation Date Value Abnormality Reference (Units ) Status Chlamydia trachomatis rRNA [Presence] in Specimen by ISHA with probe detection 04/11/2023 15:01:01 Negative Negative Final No Chlamydia trachomatis det ected by business continuity director-mediated nucleic acid amplification. Neisseria gonorrhoeae rRNA [ Presence] in Specimen by ISHA with probe detection 04/11/2023 15:01:01 Negative Negative Final No Neisseria gonorrhoeae det ected by business continuity director-mediated nucleic acid amplification. Performing Location LABORATORY [facility] [place] - [address] [place] [address]
[2023-09-30] MEDS ORDERED: LIDOCAINE 1% LOCAL 20 ML VIAL INFIL PRN (09:56)
[2023-09-30] MEDS ORDERED: OXYTOCIN 30 UNITS/NSS 30 UNITS/500 ML BAG IV PRN (09:56)
[2023-09-30] MEDS ORDERED: CALCIUM CARBONATE 500 MG CHEWABLE TAB PO PRN (09:56)
--- NOTE | 2023-09-30 10:08 | History & Physical Report ---
Date of Service September 30, 2023 Assessment & Plan (1) Unfavorable cervix in term : Plan: Cytotec for cervical ripening (2) Encounter for induction of labor: Plan: Cytotec (3) IUGR (intrauterine growth restriction) affecting care of mother: Admission and Anticipated Discharge Date Admission Date: September 30, 2023 History of Present Illness Chief Complaint: induction of labor Primary Care Provider: KM PCP 28 F P1001 at 37.1 weeks admitted for IOL fo IUGR. GBS is negative. GDM diet controlled. Allergies Allergy/AdvReac Type Severity Reaction Status Date / Time Penicillins Allergy Unknown HIVES Verified 03/12/19 15:45 amoxicillin Allergy Verified 03/12/19 15:45 Home Medications Medication Instructions Recorded Confirmed Type multivitamin,hd-aqwn-yeeaqgir 1 tab PO DAILY 11/24/18 09/30/23 History (Complete Multivitamin tablet) docusate sodium 100 mg capsule 100 mg PO 1XD 09/30/23 09/30/23 History (Colace) iron,carbonyl 65 mg-vitamin C 125 1 tab PO 09/30/23 History mg tablet,delayed release (Vitron-C) Patient History Medical History Histiocytic necrotizing lymphadenitis Depression Anxiety PTSD (post-traumatic stress disorder) Patient denies significant medical history Surgical History Hx of wisdom tooth extraction Hx of lymph node excision CERVICAL Family History Grandmother No problems noted. Mother Hypertension Premature labor Father Hypertension High cholesterol Grandmother (Maternal) Anemia Denies family history of Ovarian cancer Breast cancer Colorectal cancer Social History Smoking Status: Current every day smoker Tobacco Type: Cigarettes Cigarettes Per Day: 10; Second Hand Exposure: Yes; Do You Dip or Chew Tobacco: No; Tobacco Cessation Education Requested by Patient: No Hx Alcohol Use: No Hx Substance Use: No Preferred Language: Ecuadorean Communication Ability: Effective Application Support Analyst Required: No Beliefs That Will Affect Care: None marital status: Single Current Living Situation: Family Current Living Situation Comment: Pt lives with 6 yo daughter and 3 dogs Other Information That Helps Us Care for You: No Feels Safe at Home: Yes Safety Concerns: Feels Safe At This Time Assistive Devices: Contacts and Glasses OB History x1 [employer] History dysplasia Review of Systems All systems reviewed & are unremarkable except as noted in HPI & below Physical Exam Constitutional: WD/WN, vitals as above Eyes: PERRL, conjunctivae normal, anicteric sclerae Respiratory: normal respiratory effort, lungs clear to auscultation Cardiovascular: RRR, no murmur, no edema Gastrointestinal (Abdomen): Inspection/Auscultation: abdomen normal to inspection Musculoskeletal: Extremities: extremities normal to inspection Skin: no rashes, warm and dry Neurologic: patellar DTR's 2+ bilat, sensation intact Psychiatric: A+Ox3, euthymic affect Genitourinary: Manual OB Exam: + cervical dilation fingertip, + cervical effacement and + station (cervix posterior/firm) high OB Exam Monitor Tracing: + external FHT monitor used, + external uterine monitor used, + category I and + normal FHT variability EFW 6-7 lbs. Results & Data Vital Signs (Past 12 Hours) Vital Signs Temp Pulse Resp BP O2 Del Method 09/30/23 08:19 37.0 C 18 Room Air 09/30/23 08:06 91 H 122/69 Code Status & VTE Plan VTE Prophylaxis Plan VTE Prophylaxis will be ordered: Yes Monitoring External Monitor Cat 1 (3) IUGR (intrauterine growth restriction) affecting care of mother Fetus number: single or unspecified fetus Trimester: third trimester Qualified Code(s): O36.5930 - Maternal care for other known or suspected poor growth, third trimester, not applicable or unspecified
[2023-09-30] MEDS: miSOPROStoL 50 MCG TAB PO SCH (10:11)
[2023-09-30 10:36] LABS: Hematocrit (blood only) 30.1 % (37.0-47.0); Hemoglobin 10.3 g/dl (12.0-16.0); Mean Corpuscular Hemoglobin 31.4 pg (25.0-34.0); Mean Corpuscular Hgb Conc 34.2 g/dL (32.0-36.0); Mean Corpuscular Volume 91.8 fL (80.0-100.0); Mean Platelet Volume 9.8 fL (9.4-12.4); Platelet Count 187 K/uL (130-400); RDW Coefficient of Variation 13.4 % (11.5-14.5); Red Blood Count 3.28 M/uL (4.20-5.40); White Blood Count 9.63 K/ul (4.8-10.8)
--- NOTE | 2023-09-30 22:09 | Labor Progress Brief Note ---
Date of Service September 30, 2023 Assessment & Plan Admission and Anticipated Discharge Date Admission Date: September 30, 2023 Physical Exam Genitourinary: Speculum/Bimanual Exam: normal appearance of the vagina and normal appearance of the cervix OB Exam Monitor Tracing: + external FHT monitor used, + external uterine monitor used, + category I and + normal FHT variability Mark balloon inserted into cervix with 35 ml sterile water Results & Data Vital Signs (Past 12 Hours) Vital Signs Temp Pulse Resp BP 09/30/23 19:05 36.8 C 18 09/30/23 19:05 18 09/30/23 19:05 36.8 C 18 09/30/23 18:55 80 131/77 09/30/23 18:17 78 122/71 09/30/23 17:19 77 134/75 09/30/23 16:21 88 123/67 09/30/23 15:16 75 130/77 09/30/23 15:15 16 09/30/23 15:15 37.1 C 16 09/30/23 13:59 74 133/77 09/30/23 11:53 18 09/30/23 11:53 36.9 C 70 18 122/68 09/30/23 10:13 72 127/78
[2023-10-01] MEDS: ACETAMINOPHEN 325 MG TAB PO PRN (01:06)
--- NOTE | 2023-10-01 09:11 | Labor Progress Brief Note ---
Date of Service October 01, 2023 Assessment & Plan Admission and Anticipated Discharge Date Admission Date: September 30, 2023 Physical Exam Genitourinary: Manual OB Exam: + cervical dilation 4 cm, + cervical effacement 60% and + station -2 OB Exam Monitor Tracing: + external FHT monitor used, + external uterine monitor used, + category I and + normal FHT variability Results & Data Vital Signs (Past 12 Hours) Vital Signs Temp Pulse Resp BP 10/01/23 07:02 36.9 C 65 16 120/70 10/01/23 04:06 16 10/01/23 04:06 36.8 C 16 09/30/23 23:03 69 122/71 09/30/23 23:00 18 09/30/23 23:00 36.9 C 18
[2023-10-01] MEDS: OXYTOCIN 30 UNITS/NSS 30 UNITS/500 ML BAG IV PRN (11:00)
[2023-10-01] MEDS: LACTATED RINGER'S 1,000 ML IV PRN (11:00)
[2023-10-01] MEDS ORDERED: Nursing to Pharmacy Communication SCH (12:15)
--- NOTE | 2023-10-01 14:41 | Labor Progress Brief Note ---
Date of Service October 01, 2023 Assessment & Plan Admission and Anticipated Discharge Date Admission Date: September 30, 2023 Physical Exam Genitourinary: Manual OB Exam: + cervical dilation 4 cm and 5 cm, + cervical effacement 60%, + station -2 and + amniotic fluid (AROM with Amni-hook clear fluid) clear OB Exam Monitor Tracing: + external FHT monitor used, + external uterine monitor used, + category I and + normal FHT variability Results & Data Vital Signs (Past 12 Hours) Vital Signs Temp Pulse Resp BP 10/01/23 13:32 71 120/69 10/01/23 13:31 18 10/01/23 13:31 37.0 C 18 10/01/23 12:36 67 123/72 10/01/23 10:44 82 120/69 10/01/23 10:43 16 10/01/23 10:43 36.9 C 16 10/01/23 07:02 36.9 C 65 16 120/70 10/01/23 04:06 16 10/01/23 04:06 36.8 C 16
[2023-10-01] MEDS ORDERED: NALOXONE HCL 1 MG in SODIUM CHLORIDE 0.9% 1,000 ML IV PRN (15:15)
[2023-10-01] MEDS ORDERED: LIDOCAINE 2% MPF LOCAL 5 ML VIAL EPI PRN (15:15)
[2023-10-01] MEDS ORDERED: ePHEDrine sulfate 50 MG/ML AMP IV PRN (15:15)
[2023-10-01] MEDS ORDERED: SODIUM CHLORIDE 0.9% PF INJ 10 ML VIAL EPI PRN (15:15)
[2023-10-01] MEDS ORDERED: fentaNYL citrate PF 100 MCG/2 ML VIAL EPI PRN (15:15)
[2023-10-01] MEDS ORDERED: NALOXONE HCL 0.4 MG/1 ML VIAL/CARP IV PRN (15:15)
[2023-10-01] MEDS ORDERED: diphenhydrAMINE 50 MG/ML VIAL IV PRN (15:15)
[2023-10-01] MEDS ORDERED: NALBUPHINE HCL 5 MG in SYRINGE 0 ML IV PRN (15:15)
[2023-10-01] MEDS ORDERED: BUPIVACAINE 0.25% PF 30 ML VIAL EPI PRN (15:15)
[2023-10-01] MEDS ORDERED: fentANYL 2 MCG/ML BUPIVacaine 0.125%-NSS 100ML BAG EPI PRN (15:15)
[2023-10-01] MEDS ORDERED: ROPIVACAINE 0.5% PF 5 MG/ML 20 ML VIAL EPI PRN (15:15)
--- NOTE | 2023-10-01 15:15 | Anesthesiology Consultation ---
Date of Service October 01, 2023 Assessment & Plan Chart Review Chart Review: Acceptable Risk for Labor Epidural History Height/Weight Height: 5 ft 3 in Weight: 78.925 kg Allergies Allergy/AdvReac Type Severity Reaction Status Date / Time Penicillins Allergy Unknown HIVES Verified 03/12/19 15:45 amoxicillin Allergy Verified 03/12/19 15:45 Medications Home Medications Medication Instructions Recorded Confirmed Last Taken multivitamin,lk-tqcq-orsacpri 1 tab PO DAILY 11/24/18 09/30/23 09/29/23 07:00 (Complete Multivitamin tablet) docusate sodium 100 mg capsule 100 mg PO 1XD 09/30/23 09/30/23 09/29/23 07:00 (Colace) iron,carbonyl 65 mg-vitamin C 125 1 tab PO 09/30/23 09/29/23 07:00 mg tablet,delayed release (Vitron-C) Active Medications Generic Name Dose Route Start Last Admin Trade Name Freq PRN Reason Stop Dose Admin Acetaminophen 650 mg 09/30/23 09:56 10/01/23 01:06 Acetaminophen 325 Mg Tab PO 10/30/23 09:55 650 mg Q6H PRN Administration Pain Lactated Ringer's 1,000 mls @ 125 mls/hr 09/30/23 09:56 10/01/23 11:00 Lr IV 10/02/23 09:55 125 mls/hr .Q8H PRN Administration L&D Protocol Protocol Oxytocin 30 units in 500 mls @ 13 mls/hr 10/01/23 10:03 10/01/23 14:00 Pitocin 30 Units/Nss IV 10/03/23 10:02 0.78 units/hr .Q24H PRN 13 mls/hr Labor Induction/Augmentation Titration Protocol 0.78 UNITS/HR Past Medical History Medical History Histiocytic necrotizing lymphadenitis Depression Anxiety PTSD (post-traumatic stress disorder) Patient denies significant medical history Past Family History Family History Grandmother No problems noted. Mother Hypertension Premature labor Father Hypertension High cholesterol Grandmother (Maternal) Anemia Denies family history of Ovarian cancer Breast cancer Colorectal cancer Past Surgical History Surgical History Hx of wisdom tooth extraction Hx of lymph node excision CERVICAL Social History Smoking Status: Current every day smoker tobacco type: cigarettes Smoking cigarettes per day: 10 Do You Dip or Chew Tobacco: No Hx Alcohol Use: No Hx Substance Use: No substance use type: does not use Physical Exam Vital Signs Last Vital Signs Temp 37.2 C 10/01/23 14:47 Pulse 69 10/01/23 14:48 Resp 18 10/01/23 14:47 BP 132/76 10/01/23 14:48 O2 Del Method Room Air 09/30/23 08:19 Constitutional WD/WN, vitals as above Eyes PERRL, conjunctivae normal, anicteric sclerae Respiratory normal respiratory effort, lungs clear to auscultation Cardiovascular RRR, no murmur, no edema Gastrointestinal (Abdomen) Inspection/Auscultation: abdomen normal to inspection Musculoskeletal Extremities: extremities normal to inspection Skin no rashes, warm and dry Neurologic patellar DTR's 2+ bilat, sensation intact Psychiatric A+Ox3, euthymic affect Genitourinary Speculum/Bimanual Exam: normal appearance of the vagina and normal appearance of the cervix Manual OB Exam: + cervical dilation + 4 cm and + 5 cm, + cervical effacement + 60%, + station + -2 and + amniotic fluid (AROM with Amni-hook clear fluid) + clear OB Exam Monitor Tracing: + external FHT monitor used, + external uterine monitor used, + category I and + normal FHT variability Testing Laboratory Results 09/30/23 10:08
[2023-10-01] MEDS: fentANYL 2 MCG/ML BUPIVacaine 0.125%-NSS 100ML BAG ONE (15:45)
[2023-10-01] MEDS: LIDOCAINE 2%/EPINEPHRINE 1:200,000 20 ML PF ONE (15:45)
[2023-10-01] MEDS: fentaNYL citrate PF 100 MCG/2 ML VIAL ONE (15:50)
[2023-10-01] MEDS: BUPIVACAINE 0.25% PF 30 ML VIAL EPI STA (15:51)
[2023-10-01] MEDS: fentaNYL citrate PF 100 MCG/2 ML VIAL EPI STA (15:51)
[2023-10-01] MEDS: LIDOCAINE 2%/EPINEPHRINE 1:200,000 20 ML PF EPI STA (15:51)
[2023-10-01] MEDS: SODIUM CHLORIDE 0.9% PF INJ 10 ML VIAL ONE (15:51)
[2023-10-01] MEDS: BUPIVACAINE 0.25% PF 30 ML VIAL ONE (15:51)
[2023-10-01] MEDS: SODIUM CHLORIDE 0.9% PF INJ 10 ML VIAL EPI STA (15:51)
--- NOTE | 2023-10-01 17:57 | Labor Progress Brief Note ---
Date of Service October 01, 2023 Assessment & Plan Admission and Anticipated Discharge Date Admission Date: September 30, 2023 Physical Exam Genitourinary: Manual OB Exam: + cervical dilation 5 cm, + cervical effacement 70%, + station 0 and + amniotic fluid clear OB Exam Monitor Tracing: + external FHT monitor used, + external uterine monitor used, + category I and + normal FHT variability Results & Data Vital Signs (Past 12 Hours) Vital Signs Temp Pulse Resp BP Pulse Ox 10/01/23 17:54 72 122/69 10/01/23 17:51 90 99 10/01/23 17:46 82 98 10/01/23 17:41 75 98 10/01/23 17:40 75 115/78 94 10/01/23 17:36 86 99 10/01/23 17:35 18 10/01/23 17:35 36.9 C 18 10/01/23 17:31 78 98 10/01/23 17:27 74 114/59 L 10/01/23 17:26 86 96 10/01/23 17:21 73 99 10/01/23 17:16 71 98 10/01/23 17:11 75 98 10/01/23 17:08 70 105/59 L 10/01/23 17:06 74 98 10/01/23 17:01 75 98 10/01/23 16:56 76 97 10/01/23 16:54 79 127/66 10/01/23 16:51 81 98 10/01/23 16:46 76 97 10/01/23 16:41 78 97 10/01/23 16:39 77 112/55 L 10/01/23 16:36 79 98 10/01/23 16:31 77 98 10/01/23 16:26 82 99 10/01/23 16:24 77 109/73 10/01/23 16:21 77 99 10/01/23 16:16 79 99 10/01/23 16:11 79 99 10/01/23 16:08 78 122/65 10/01/23 16:06 79 98 10/01/23 16:01 85 98 10/01/23 16:00 86 146/68 H 10/01/23 15:56 89 94 10/01/23 15:55 105 H 93 10/01/23 15:51 83 96 10/01/23 15:47 83 109/52 L 10/01/23 15:46 75 97 10/01/23 15:42 84 180/113 H 10/01/23 15:41 80 88 L 10/01/23 15:36 69 96 10/01/23 15:31 82 97 10/01/23 15:26 71 94 10/01/23 15:25 62 84 L 10/01/23 14:48 69 132/76 10/01/23 14:47 18 10/01/23 14:47 37.2 C 18 10/01/23 13:32 71 120/69 10/01/23 13:31 18 10/01/23 13:31 37.0 C 18 10/01/23 12:36 67 123/72 10/01/23 10:44 82 120/69 10/01/23 10:43 16 10/01/23 10:43 36.9 C 16 10/01/23 07:02 36.9 C 65 16 120/70
[2023-10-01] MEDS: ePHEDrine sulfate 50 MG/ML AMP ONE (18:21)
[2023-10-01] MEDS ORDERED: NURSING L&D Epidural Breakthrough Pain Update ONE (18:52)
[2023-10-01] MEDS ORDERED: HYDROCORTISONE ACETATE 25 MG SUPP PR PRN (20:03)
[2023-10-01] MEDS ORDERED: bisacodyL 10 MG SUPP PR PRN (20:03)
[2023-10-01] MEDS ORDERED: OXYTOCIN 30 UNITS/NSS 30 UNITS/500 ML BAG IV PRN (20:03)
[2023-10-01] MEDS ORDERED: BENZOCAINE 20% SPRY 85 APPLN/85 GM CAN EXT PRN (20:03)
--- NOTE | 2023-10-01 20:07 | Delivery Summary ---
Vaginal Delivery Summary Date of Service October 01, 2023 Vaginal Delivery Summary live female MURRAY over intact perineum with delayed cord clamping. Apgars 8/9 weight pending. Cord blood obtained followed by spontaneous delivery of intact placenta. No tears. QBL pending. Final sponge and instrument count are correct. Mom and baby stable.
[2023-10-01] MEDS: DIPHTHER/TETAN/PERTUS Vaccine (Tdap, Adol/Adult) 0.5mL IM ONE (20:13)
[2023-10-01] MEDS: DOCUSATE SODIUM 100 MG CAP PO SCH ×2 (20:13→21:36)
--- NOTE | 2023-10-01 21:00 | Anesthesia Procedure Note ---
Date of Service October 01, 2023 Anesthesia Post Epidural Note Vital Signs Vital Signs: Temp Pulse Resp BP Pulse Ox O2 Del Method 37.7 C H 101 H 18 115/69 62 L Room Air 10/01/23 20:40 10/01/23 20:41 10/01/23 20:40 10/01/23 20:41 10/01/23 19:58 09/30/23 08:19 Pain Intensity Abdomen: Pain Intensity: 7 Left Groin: Pain Intensity: 9 Notes Mental Status: alert / awake / arousable and participated in evaluation Nausea / Vomiting: adequately controlled Pain: adequately controlled Airway Patency, RR, SpO2: stable & adequate BP & HR: stable & adequate Hydration State: stable & adequate Neuraxial Anesthesia: was administered and sensory block is resolving Anesthetic Complications: no major complications apparent and Pt Satisfied with anesthetic care Epidural: Removed without complications and With tip intact
[2023-10-02 06:49] LABS: Hematocrit (blood only) 29.2 % (37.0-47.0); Hemoglobin 10.1 g/dl (12.0-16.0); Mean Corpuscular Hemoglobin 32.4 pg (25.0-34.0); Mean Corpuscular Hgb Conc 34.6 g/dL (32.0-36.0); Mean Corpuscular Volume 93.6 fL (80.0-100.0); Platelet Count 173 K/uL (130-400); RDW Coefficient of Variation 13.3 % (11.5-14.5); RDW Standard Deviation 45.1 fL (36.4-46.3); Red Blood Count 3.12 M/uL (4.20-5.40)
--- NOTE | 2023-10-02 07:57 | Obstetrical Progress Note ---
Date of Service October 02, 2023 Assessment & Plan Admission and Anticipated Discharge Date Admission Date: September 30, 2023 Subjective Patient is seen and examined. She feels well, no complaints. Ambulating without dizziness Voiding without difficulty Tolerating regular diet with out N&V Bleeding is minimal No fever/ chills/ CP/ SOB/ N&V/ Leg pain Breast feeding without problems Lab Results 09/30/23 09/30/23 10/01/23 Range/Units 09:58 10:08 17:23 WBC 9.63 (4.8-10.8) K/ul RBC 3.28 L (4.20-5.40) M/uL Hgb 10.3 L (12.0-16.0) g/dl Hct 30.1 L (37.0-47.0) % MCV 91.8 (80.0-100.0) fL MCH 31.4 (25.0-34.0) pg MCHC 34.2 (32.0-36.0) g/dL RDW Std Deviation 45.0 (36.4-46.3) fL RDW Coeff of Mari 13.4 (11.5-14.5) % Plt Count 187 (130-400) K/uL MPV 9.8 (9.4-12.4) fL POC Glucose 89 82 (70-99) mg/dl Treponema pallidum Ab Negative (Negative) 10/02/23 Range/Units 06:06 WBC 14.70 H (4.8-10.8) K/ul RBC 3.12 L (4.20-5.40) M/uL Hgb 10.1 L (12.0-16.0) g/dl Hct 29.2 L (37.0-47.0) % MCV 93.6 (80.0-100.0) fL MCH 32.4 (25.0-34.0) pg MCHC 34.6 (32.0-36.0) g/dL RDW Std Deviation 45.1 (36.4-46.3) fL RDW Coeff of Mari 13.3 (11.5-14.5) % Plt Count 173 (130-400) K/uL MPV 10.0 (9.4-12.4) fL POC Glucose (70-99) mg/dl Treponema pallidum Ab (Negative) Vital Signs Temp Pulse Pulse Resp BP BP Pulse Ox 10/02/23 03:15 36.7 C 81 16 120/85 99 10/01/23 22:40 36.9 C 86 16 112/79 99 10/01/23 21:55 37.7 C H 18 10/01/23 21:55 100 H 109/59 L 10/01/23 21:40 100 H 110/58 L 10/01/23 21:26 94 H 114/63 10/01/23 21:25 36.8 C 18 10/01/23 21:11 93 H 119/78 10/01/23 20:55 36.8 C 18 10/01/23 20:41 101 H 115/69 10/01/23 20:40 37.7 C H 18 10/01/23 20:26 88 114/71 10/01/23 20:25 37.7 C H 18 10/01/23 20:11 82 125/74 10/01/23 20:10 37.7 C H 18 10/01/23 19:58 62 L 10/01/23 19:58 97 H 10/01/23 19:58 100 H 52 L O2 Del Method 10/02/23 03:15 Room Air 10/01/23 22:40 Room Air 10/01/23 21:55 10/01/23 21:55 10/01/23 21:40 10/01/23 21:26 10/01/23 21:25 10/01/23 21:11 10/01/23 20:55 10/01/23 20:41 10/01/23 20:40 10/01/23 20:26 10/01/23 20:25 10/01/23 20:11 10/01/23 20:10 10/01/23 19:58 10/01/23 19:58 10/01/23 19:58 PE: General: Alert, orientedx3, NAD Abd: soft, NT, fundus firm, below Umbilicus Perineum intact, Lochia rubra minimal Ext; NT, no edema AP: 28 yo s/p , ppd# 1 VSS Afebrile doing well Continue routine care All questions were answered D/C home tomorrow Results & Data Vital Signs (Past 12 Hours) Vital Signs Temp Pulse Pulse Resp BP BP Pulse Ox 10/02/23 03:15 36.7 C 81 16 120/85 99 10/01/23 22:40 36.9 C 86 16 112/79 99 10/01/23 21:55 37.7 C H 18 10/01/23 21:55 100 H 109/59 L 10/01/23 21:40 100 H 110/58 L 10/01/23 21:26 94 H 114/63 10/01/23 21:25 36.8 C 18 10/01/23 21:11 93 H 119/78 10/01/23 20:55 36.8 C 18 10/01/23 20:41 101 H 115/69 10/01/23 20:40 37.7 C H 18 10/01/23 20:26 88 114/71 10/01/23 20:25 37.7 C H 18 10/01/23 20:11 82 125/74 10/01/23 20:10 37.7 C H 18 10/01/23 19:58 62 L 10/01/23 19:58 97 H 10/01/23 19:58 100 H 52 L O2 Del Method 10/02/23 03:15 Room Air 10/01/23 22:40 Room Air 10/01/23 21:55 10/01/23 21:55 10/01/23 21:40 10/01/23 21:26 10/01/23 21:25 10/01/23 21:11 10/01/23 20:55 10/01/23 20:41 10/01/23 20:40 10/01/23 20:26 10/01/23 20:25 10/01/23 20:11 10/01/23 20:10 10/01/23 19:58 10/01/23 19:58 10/01/23 19:58
[2023-10-02] MEDS: FERROUS SULFATE 325 MG TAB PO SCH (09:30)
[2023-10-02] MEDS: PRENATAL VITAMIN 1 TAB PO SCH (09:30)
[2023-10-02] MEDS: CEROVITE ADV FORMULA TAB PO SCH (09:30)
[2023-10-02] MEDS: IBUPROFEN 600 MG TAB PO PRN (14:24)
[2023-10-02] MEDS: bisacodyL 5 MG TABEC PO SCH (20:31)
[2023-10-03 00:15] VITALS: RESP 16
[2023-10-03] MEDS: ACETAMINOPHEN 325 MG TAB PO PRN (06:32)
[2023-10-03 06:48] LABS: Hematocrit (blood only) 30.6 % (37.0-47.0); Hemoglobin 10.2 g/dl (12.0-16.0)
--- NOTE | 2023-10-03 09:15 | Obstetrical Progress Note ---
Date of Service October 03, 2023 Assessment & Plan Admission and Anticipated Discharge Date Admission Date: September 30, 2023 OB Progress Note abdomen soft and non tender no calf tenderness ambulating well vaginal bleeding scant hgb 10.2 Results & Data Vital Signs (Past 12 Hours) Vital Signs Temp Pulse Resp BP Pulse Ox O2 Del Method 10/03/23 00:00 36.4 C L 66 16 110/72 97 Room Air
[2023-10-03 11:23] VITALS: BP 103/68; PULSE 69; TEMP 97.7; O2SAT 98
== END 2023-10-03 12:20 | disposition home or self-care (01) | DRG 807 ==
LOC: 4S1 07:58 → 4E2 10-01 22:49